=== PATIENT | male | born 1975 | race Hispanic/Latino ===

== ENCOUNTER 2018-03-21 11:21 | Emergency (ER) | payer OTHER ==
[2018-03-21] MEDS ORDERED: ONDANSETRON ODT 4 MG TAB ONE (11:44)
[2018-03-21] MEDS ORDERED: MORPHINE SULFATE 4 MG/1ML SYG ONE (11:44)
== END 2018-03-21 12:13 | disposition home or self-care (01) ==
LOC: EDH 11:21
DX: G89.29 Other chronic pain (principal); M79.671 Pain in right foot; E11.9 Type 2 diabetes mellitus without complications; E78.5 Hyperlipidemia, unspecified; I10 Essential (primary) hypertension; Z89.512 Acquired absence of left leg below knee; Z98.890 Other specified postprocedural states
CPT/HCPCS: 73630; 96372; 99284; J2270

== ENCOUNTER 2020-07-24 06:38 | Emergency (ER) | payer OTHER ==
[~2020-07-24 06:38] MED LIST: LEVO750T46 PO; TAMS-1 PO
[2020-07-24] MEDS ORDERED: ONDANSETRON HCL 4 MG/2 ML VIAL ONE (07:11)
[2020-07-24] MEDS ORDERED: SODIUM CHLORIDE 0.9% 1000ML 1,000 ML IV ONE ×2 (07:12→09:51)
[2020-07-24] MEDS ORDERED: MORPHINE SULFATE 4 MG/1ML SYG ONE (07:12)
[2020-07-24 08:21] LABS: BASOPHILS % (AUTO) 0.8 % (0.0-5.0); EOSINOPHILS % (AUTO) 1.9 % (0.0-8.0); HEMATOCRIT 30.7 % (42-54); LYMPHOCYTES % (AUTO) 18.8 % (21.0-51.0); MEAN CORPUSCULAR HEMOGLOBIN 29.3 pg (27.0-33.0); MEAN CORPUSCULAR HGB CONC 32.2 g/dL (32.0-36.0); MEAN CORPUSCULAR VOLUME 90.8 fL (79-99); MONOCYTES % (AUTO) 4.5 % (3.0-13.0); NEUTROPHILS % (AUTO) 73.8 % (40.0-77.0); PLATELET COUNT (AUTO) 232 K/uL (130-400); RED BLOOD CELL COUNT(AUTO) 3.38 MIL/uL (4.50-6.20); RED CELL DISTRIBUTION WIDTH 12.4 % (11.0-15.5); WHITE BLOOD COUNT (AUTO) 5.2 K/uL (4.8-10.8)
[2020-07-24 08:33] LABS: APPEARANCE,URINE Clear (CLEAR); BILIRUBIN,URINE Negative (NEGATIVE); COLOR,URINE Yellow (YELLOW); GLUCOSE, URINE (UA) >=1000 mg/dL (NEGATIVE); KETONES,URINE Negative (NEGATIVE); LEUKOCYTE ESTERASE ,URINE Negative (NEGATIVE); NITRATE,URINE Negative (NEGATIVE); OCCULT BLOOD,URINE Small (NEGATIVE); PH,URINE 5.5 (5.0-8.0); PROTEIN,URINE 300 mg/dL (NEGATIVE); UROBILINOGEN,URINE 0.2 mg/dL (0.2-1.0)
[2020-07-24 08:37] LABS: ALBUMIN 2.7 g/dL (3.5-5.0); BILIRUBIN,DIRECT 0.1 mg/dL (0.0-0.3); BILIRUBIN,TOTAL 0.2 mg/dL (0.2-1.0); CREATININE 0.8 mg/dL (0.5-1.5); POTASSIUM 3.5 mmol/L (3.5-5.1); TOTAL PROTEIN, SERUM 6.7 g/dL (6.0-8.3)
[2020-07-24 08:47] LABS: BACTERIA,URINE Rare /HPF (None Seen); MUCUS,URINE Rare LPF (None Seen); RBC,URINE 0-1 /HPF (0-1); SQUAMOUS EPITHELIAL CELL,UR Rare /HPF (0-2); WBC,URINE 0-1 /HPF (0-1); YEAST,URINE BUDDING Few /HPF (None Seen)
[2020-07-24 08:53] LABS: INR 0.87 (0.85-1.15); PARTIAL THROMBOPLASTIN TIME 23.5 SEC (26.3-35.5); PROTHROMBIN TIME 9.4 SEC (9.6-11.6)
[2020-07-24] MEDS ORDERED: INSULIN HUMULIN R 100 UNIT/ML 3ML ONE (09:51)
== END 2020-07-24 12:20 | disposition home or self-care (01) ==
LOC: EDH 06:38
DX: K59.00 Constipation, unspecified (principal); E11.65 Type 2 diabetes mellitus with hyperglycemia; E78.5 Hyperlipidemia, unspecified; I10 Essential (primary) hypertension; Z90.49 Acquired absence of other specified parts of digestive tract
CPT/HCPCS: 36415; 74176; 80048; 80076; 81001; 82550; 82948; 83690; 84484; 85025; 85610; 85730; 93005; 96361; 96374; 96375; 99285; J1815; J2270; J2405; J7030 ×2

== ENCOUNTER 2020-07-28 07:36 | Emergency (ER) | payer OTHER ==
[2020-07-28] MEDS ORDERED: ONDANSETRON HCL 4 MG/2 ML VIAL ONE (07:54)
[2020-07-28] MEDS ORDERED: KETOROLAC TROMETHAMINE 30MG/ML ONE (07:55)
[2020-07-28 08:16] LABS: BASOPHILS % (AUTO) 0.8 % (0.0-5.0); EOSINOPHILS % (AUTO) 2.4 % (0.0-8.0); HEMATOCRIT 31.1 % (42-54); LYMPHOCYTES % (AUTO) 19.4 % (21.0-51.0); MEAN CORPUSCULAR HEMOGLOBIN 30.3 pg (27.0-33.0); MEAN CORPUSCULAR HGB CONC 34.1 g/dL (32.0-36.0); MEAN CORPUSCULAR VOLUME 88.9 fL (79-99); MONOCYTES % (AUTO) 3.3 % (3.0-13.0); NEUTROPHILS % (AUTO) 73.9 % (40.0-77.0); PLATELET COUNT (AUTO) 283 K/uL (130-400); RED CELL DISTRIBUTION WIDTH 12.6 % (11.0-15.5); WHITE BLOOD COUNT (AUTO) 5.1 K/uL (4.8-10.8)
[2020-07-28 08:30] LABS: INR 0.86 (0.85-1.15); PARTIAL THROMBOPLASTIN TIME 23.9 SEC (26.3-35.5); PROTHROMBIN TIME 9.3 SEC (9.6-11.6)
[2020-07-28 08:39] LABS: ALBUMIN 2.7 g/dL (3.5-5.0); BILIRUBIN,TOTAL 0.2 mg/dL (0.2-1.0); CREATININE 0.7 mg/dL (0.5-1.5); POTASSIUM 3.9 mmol/L (3.5-5.1); TOTAL PROTEIN, SERUM 6.5 g/dL (6.0-8.3)
[2020-07-28] MEDS ORDERED: INSULIN HUMULIN R 100 UNIT/ML 3ML ONE (09:01)
[2020-07-28] MEDS ORDERED: HALOPERIDOL LACTATE 5 MG/ML VIAL ONE (09:05)
[2020-07-28] MEDS ORDERED: LORAZEPAM 2 MG/ML 1 ML VIAL ONE (09:42)
== END 2020-07-28 13:32 | disposition home or self-care (01) ==
LOC: EDH 07:36
DX: G89.29 Other chronic pain (principal); R10.84 Generalized abdominal pain; E11.65 Type 2 diabetes mellitus with hyperglycemia; I10 Essential (primary) hypertension; E78.5 Hyperlipidemia, unspecified; Z90.49 Acquired absence of other specified parts of digestive tract; Z98.890 Other specified postprocedural states
CPT/HCPCS: 36415; 74176; 80053; 82150; 82948 ×2; 83690; 84484; 85025; 85610; 85730; 93005; 96361 ×2; 96374; 96375; 99285; J1630; J1815; J1885; J2060; J2405

== ENCOUNTER 2020-08-13 23:04 | Inpatient (IN) | payer OTHER ==
[~2020-08-13] VITALS: Ht 142.2 cm; Wt 61.2 kg
[2020-08-13 23:54] LABS: BASOPHILS % (AUTO) 0.6 % (0.0-5.0); EOSINOPHILS % (AUTO) 0.3 % (0.0-8.0); HEMATOCRIT 38.5 % (42-54); LYMPHOCYTES % (AUTO) 16.5 % (21.0-51.0); MEAN CORPUSCULAR HEMOGLOBIN 29.9 pg (27.0-33.0); MEAN CORPUSCULAR HGB CONC 32.5 g/dL (32.0-36.0); MEAN CORPUSCULAR VOLUME 92.1 fL (79-99); MONOCYTES % (AUTO) 2.7 % (3.0-13.0); NEUTROPHILS % (AUTO) 79.6 % (40.0-77.0); PLATELET COUNT (AUTO) 134 K/uL (130-400); RED BLOOD CELL COUNT(AUTO) 4.18 MIL/uL (4.50-6.20); RED CELL DISTRIBUTION WIDTH 13.1 % (11.0-15.5); WHITE BLOOD COUNT (AUTO) 6.3 K/uL (4.8-10.8)
[2020-08-13] MEDS ORDERED: KETOROLAC TROMETHAMINE 30MG/ML ONE (23:57)
[2020-08-13] MEDS ORDERED: ONDANSETRON HCL 4 MG/2 ML VIAL ONE (23:57)
[2020-08-14] MEDS ORDERED: MORPHINE SULFATE 4 MG/1ML SYG ONE (00:46)
[2020-08-14 00:48] LABS: INR 0.89 (0.85-1.15); PARTIAL THROMBOPLASTIN TIME 22.5 SEC (26.3-35.5); PROTHROMBIN TIME 9.7 SEC (9.6-11.6)
[2020-08-14 01:11] LABS: ALANINE AMINOTRANSFERASE 87 U/L (12-78); ALBUMIN 2.5 g/dL (3.5-5.0); ASPARTATE AMINOTRANSFERASE 78 U/L (10-37); BILIRUBIN,DIRECT < 0.1 mg/dL (0.0-0.3); BILIRUBIN,TOTAL 0.2 mg/dL (0.2-1.0); CARBON DIOXIDE 22 mmol/L (21-32); CHLORIDE 94 mmol/L (101-111); CREATINE KINASE, TOTAL 101 U/L (21-232); CREATININE 1.3 mg/dL (0.5-1.5); GLOMERULAR FILTR. RATE CALC 63 mL/min (>60); LIPASE 1584 U/L (114-286); POTASSIUM 4.6 mmol/L (3.5-5.1); SODIUM SERUM 129 mmol/L (136-145); TOTAL PROTEIN, SERUM 6.3 g/dL (6.0-8.3); UREA NITROGEN, BLOOD 13 mg/dL (7-18)
[2020-08-14 01:25] LABS: GLUCOSE,RANDOM 736 mg/dL (70-105)
[2020-08-14] MEDS ORDERED: INSULIN HUMULIN R 100 UNIT/ML 3ML ONE ×2 (02:15→13:09)
[2020-08-14 02:30] LABS: ABG BASE EXCESS 0.2 mmol/L (-2.0-3.0); ABG HCO3 24.9 mmol/L (21.0-28.0); ABG OXYGEN SATURATION 97.4 % (95.0-99.0); ABG PCO2 41 mmHg (35-48)
[2020-08-14 03:55] LABS: APPEARANCE,URINE Clear (CLEAR); BILIRUBIN,URINE Negative (NEGATIVE); COLOR,URINE Yellow (YELLOW); GLUCOSE, URINE (UA) >=1000 mg/dL (NEGATIVE); KETONES,URINE 15 mg/dL (NEGATIVE); LEUKOCYTE ESTERASE ,URINE Negative (NEGATIVE); NITRATE,URINE Negative (NEGATIVE); OCCULT BLOOD,URINE Negative (NEGATIVE); PROTEIN,URINE 300 mg/dL (NEGATIVE); UROBILINOGEN,URINE 0.2 mg/dL (0.2-1.0)
[2020-08-14] MEDS ORDERED: ACETAMINOPHEN 325 MG TAB PO PRN ×2 (04:00)
[2020-08-14] MEDS ORDERED: LACTULOSE 20 GM/30 ML UDCUP PO PRN (04:00)
[2020-08-14] MEDS: LACTATED RINGERS 1000ML 1,000 ML IV SCH ×3 (04:00→21:14)
[2020-08-14 04:05] LABS: BACTERIA,URINE Moderate /HPF (None Seen); RBC,URINE None Seen /HPF (0-1); SQUAMOUS EPITHELIAL CELL,UR Rare /HPF (0-2)
[2020-08-14 04:06] LABS: MUCUS,URINE Few LPF (None Seen)
[2020-08-14] MEDS ORDERED: HYDROMORPHONE HCL 0.5 MG/0.5 ML ML ONE ×2 (04:11→13:22)
[2020-08-14] MEDS ORDERED: INSULIN HUMULIN R 100 UNIT/ML 3ML SQ SCH (06:00)
[2020-08-14] MEDS ORDERED: SODIUM CHLORIDE 0.9% 1000ML 1,000 ML IV ONE (08:01)
[2020-08-14] MEDS ORDERED: FAMOTIDINE/PF 20 MG/2 ML VIAL IV ONE (08:02)
[2020-08-14] MEDS ORDERED: ENOXAPARIN SODIUM 40 MG/0.4 ML SYRINGE SQ ONE (08:02)
[2020-08-14 08:18] LABS: BASOPHILS % (AUTO) 0.6 % (0.0-5.0); EOSINOPHILS % (AUTO) 3.1 % (0.0-8.0); HEMATOCRIT 30.4 % (42-54); LYMPHOCYTES % (AUTO) 24.4 % (21.0-51.0); MEAN CORPUSCULAR HGB CONC 33.2 g/dL (32.0-36.0); MEAN CORPUSCULAR VOLUME 90.2 fL (79-99); MONOCYTES % (AUTO) 4.5 % (3.0-13.0); PLATELET COUNT (AUTO) 213 K/uL (130-400); RED BLOOD CELL COUNT(AUTO) 3.37 MIL/uL (4.50-6.20); RED CELL DISTRIBUTION WIDTH 12.8 % (11.0-15.5); WHITE BLOOD COUNT (AUTO) 5.2 K/uL (4.8-10.8)
[2020-08-14] MEDS ORDERED: GLUCAGON 1MG KIT 1 MG ML IM PRN (08:30)
[2020-08-14] MEDS ORDERED: POTASSIUM CHLORIDE 20 MEQ ERTAB PO PRN (08:30)
[2020-08-14] MEDS ORDERED: POTASSIUM CHLORIDE 10% ELIXIR 20 MEQ/15 ML UDCUP PO PRN (08:30)
[2020-08-14] MEDS ORDERED: POTASSIUM CHLORIDE 20MEQ/100ML 100 ML IV PRN ×2 (08:30)
[2020-08-14] MEDS ORDERED: DEXTROSE 50%-WATER 50 ML DISP.SYRIN IV PRN (08:30)
[2020-08-14 08:32] LABS: POTASSIUM 3.8 mmol/L (3.5-5.1)
[2020-08-14] MEDS: ENOXAPARIN SODIUM 40 MG/0.4 ML SYRINGE SQ SCH (09:00)
[2020-08-14] MEDS: FAMOTIDINE/PF 20 MG/2 ML VIAL IV SCH ×2 (09:00→21:13)
[2020-08-14 09:03] LABS: CHOLESTEROL 116 mg/dL (<200); HDL CHOLESTEROL 42 mg/dL (29-71); LDL DIRECT 51 mg/dL (0-99); TRIGLYCERIDES 127 mg/dL (30-200)
[2020-08-14] MEDS: INSULIN HUMULIN R 100 UNIT/ML 3ML SQ SCH ×3 (11:30→21:00)
[2020-08-14] MEDS ORDERED: ONDANSETRON HCL 4 MG/2 ML VIAL ONE (13:21)
[2020-08-14] MEDS ORDERED: LACTATED RINGERS 1000ML 1,000 ML IV ONE (13:23)
--- NOTE | 2020-08-14 14:10 | NUR ---
call to pt's number in chart, no answer. no other numbers on file WILL FOLLOW WHEN PATIENT GOES OT FLOOR Addendum: 08/14/20 at 1411 by DEREJE DEL CID RN Amended: Links added.
[2020-08-14 17:41] VITALS: BP 118/75
--- NOTE | 2020-08-14 17:43 | NUR ---
ARRIVAL TO FLOOR AAOX3 DENIES CP DENIES SOB DENIES NV NO COMPLAINTS AT THIS TIME, ARRIVED WITH ORDERS. CALL LIGHT WITHIN REACH. HR VIA TELE SR 71.
[2020-08-14 20:08] VITALS: BP 113/69
[2020-08-14] MEDS: ONDANSETRON HCL 4 MG/2 ML VIAL IV PRN (21:13)
[2020-08-14] MEDS: HYDROMORPHONE HCL 0.5 MG/0.5 ML ML IVP PRN (21:15)
[2020-08-15 00:20] VITALS: BP 128/78
[2020-08-15 04:20] VITALS: BP 128/85
[2020-08-15 05:10] LABS: BASOPHILS % (AUTO) 0.4 % (0.0-5.0); EOSINOPHILS % (AUTO) 5.7 % (0.0-8.0); HEMATOCRIT 29.2 % (42-54); LYMPHOCYTES % (AUTO) 27.1 % (21.0-51.0); MEAN CORPUSCULAR HEMOGLOBIN 30.3 pg (27.0-33.0); MEAN CORPUSCULAR HGB CONC 33.9 g/dL (32.0-36.0); MEAN CORPUSCULAR VOLUME 89.3 fL (79-99); MONOCYTES % (AUTO) 3.3 % (3.0-13.0); NEUTROPHILS % (AUTO) 63.3 % (40.0-77.0); PLATELET COUNT (AUTO) 213 K/uL (130-400); RED BLOOD CELL COUNT(AUTO) 3.27 MIL/uL (4.50-6.20); RED CELL DISTRIBUTION WIDTH 12.7 % (11.0-15.5); WHITE BLOOD COUNT (AUTO) 5.1 K/uL (4.8-10.8)
[2020-08-15 05:48] LABS: CREATININE 0.6 mg/dL (0.5-1.5); POTASSIUM 3.3 mmol/L (3.5-5.1)
[2020-08-15] MEDS: HYDROMORPHONE HCL 0.5 MG/0.5 ML ML IVP PRN ×3 (05:49→22:01)
[2020-08-15] MEDS: ONDANSETRON HCL 4 MG/2 ML VIAL IV PRN ×2 (05:49→21:58)
[2020-08-15] MEDS: LACTATED RINGERS 1000ML 1,000 ML IV SCH ×3 (06:18→21:57)
[2020-08-15] MEDS: INSULIN HUMULIN R 100 UNIT/ML 3ML SQ SCH ×4 (06:52→22:17)
--- NOTE | 2020-08-15 06:53 | NUR ---
PATIENT UPDATE MEDICATED FOR PAIN TWICE WITH DILAUDID PRN, ALWAYS WANTS THE ZOFRAN BEFORE THE DILAUDID. STILL PENDING TO BE SEEN BY DR. TALBOT. PENDING CT OF THE ABDOMEN AND PELVIS THIS AM PER DR. TALBOT.
[2020-08-15 08:05] VITALS: BP 145/83
[2020-08-15] MEDS: ENOXAPARIN SODIUM 40 MG/0.4 ML SYRINGE SQ SCH (11:20)
[2020-08-15] MEDS: FAMOTIDINE/PF 20 MG/2 ML VIAL IV SCH ×2 (11:20→21:57)
[2020-08-15 11:55] VITALS: BP 135/84
--- NOTE | 2020-08-15 12:35 | NUR ---
IA NOT DONE. Number on file not answering.
[2020-08-15] MEDS: CEFTRIAXONE SODIUM 1 GM IV SCH (13:00)
[2020-08-15 13:34] LABS: HEMOGLOBIN A1C 15.9 % (4.0-6.0)
[2020-08-15 16:00] VITALS: BP 136/87
--- NOTE | 2020-08-15 18:03 | NUR ---
CM NOTE/IA MET WITH PATIENT IN ROOM. PER PATIENT, SOPHIA INDEPENDENT WITH ADLS, LIVES WITH SISTER AND DAUGHTER, NO DME, NO PROVIDERS, AND FEELS SAFE TO RETURN HOME. SELF PAY, STATES NEED HELP OBTAINING WHEELCHAIR. CM TO FOLLOW UP FOR NEEDS. Addendum: 08/15/20 at 1804 by TOYIN CASAREZ RN CM Amended: Links added.
--- NOTE | 2020-08-15 19:20 | NUR ---
Re: Renal sonogram Pt back from Renal Sonogram reported it was not done as current 2 IV access not working, per Mart GARCIA bedside nurse stated to re-schedule it for tomorrow. Addendum: 08/15/20 at 2314 by EDEL PAULINO RN RN Re: Renal scan
--- NOTE | 2020-08-15 19:50 | NUR ---
Re: IV Access Old IV access discontinued aseptically x2 with catheter tip intact. Sites within normal, no s/s of infection. Attempted to initiate new access x 1 unsuccessful. Pt stated that previous shift had attempted x 4. Pt noted a hard stick, requested Cat RN to assist with this issue.
[2020-08-15 20:00] VITALS: BP 145/92
--- NOTE | 2020-08-15 21:50 | NUR ---
Re: IV Access Cat RN initiated x 1 attempt IV access, noted with good blood return, LR at 125cc/hr re-started, & pt right away requested to have a Dilriannaid & Carolynan as claiming severe abdominal pain with feeling nauseated, to be medicated.
--- NOTE | 2020-08-15 22:00 | NUR ---
Re: Diarrhea Pt verbalizes having diarrhea even before he was admitted & claimed for today had 10 episode of watery to mucous consistency stool. Phoned lab as noted with order for stool collection, stated specimen pending collection. Pt then instructed if he can call us so we can place him on a bedpan & be able to collect stool specimen, pt agreed.
[2020-08-16] VITALS: BP 103/59
[2020-08-16 04:00] VITALS: BP 112/68
[2020-08-16] MEDS: HYDROMORPHONE HCL 0.5 MG/0.5 ML ML IVP PRN ×3 (04:11→20:51)
[2020-08-16] MEDS: ONDANSETRON HCL 4 MG/2 ML VIAL IV PRN ×3 (04:14→20:49)
[2020-08-16] MEDS: LACTATED RINGERS 1000ML 1,000 ML IV SCH ×2 (05:46→20:49)
[2020-08-16 06:22] LABS: BASOPHILS % (AUTO) 0.7 % (0.0-5.0); EOSINOPHILS % (AUTO) 5.3 % (0.0-8.0); LYMPHOCYTES % (AUTO) 38.1 % (21.0-51.0); MEAN CORPUSCULAR HEMOGLOBIN 29.9 pg (27.0-33.0); MEAN CORPUSCULAR HGB CONC 33.4 g/dL (32.0-36.0); MEAN CORPUSCULAR VOLUME 89.5 fL (79-99); MONOCYTES % (AUTO) 4.4 % (3.0-13.0); NEUTROPHILS % (AUTO) 51.3 % (40.0-77.0); PLATELET COUNT (AUTO) 215 K/uL (130-400); RED BLOOD CELL COUNT(AUTO) 3.24 MIL/uL (4.50-6.20); RED CELL DISTRIBUTION WIDTH 12.5 % (11.0-15.5); WHITE BLOOD COUNT (AUTO) 4.3 K/uL (4.8-10.8)
[2020-08-16 06:39] LABS: CREATININE 0.6 mg/dL (0.5-1.5); POTASSIUM 3.1 mmol/L (3.5-5.1)
[2020-08-16] MEDS: INSULIN HUMULIN R 100 UNIT/ML 3ML SQ SCH ×4 (06:59→20:53)
[2020-08-16 08:05] VITALS: BP 117/86
[2020-08-16] MEDS: CEFTRIAXONE SODIUM 1 GM IV SCH (09:20)
[2020-08-16] MEDS: FAMOTIDINE/PF 20 MG/2 ML VIAL IV SCH ×2 (09:20→20:49)
[2020-08-16] MEDS: ENOXAPARIN SODIUM 40 MG/0.4 ML SYRINGE SQ SCH (09:20)
[2020-08-16 12:00] VITALS: BP 120/74
--- NOTE | 2020-08-16 13:15 | NUR ---
REFUSING MEALS PT STATED HE WOULD RATHER NOT EAT IN ORDER TO RECEIVE DILAUDID FOR ABDOMINAL PAIN 07/26.
[2020-08-16] MEDS ORDERED: LOPERAMIDE 1 MG/7.5 ML UDCUP PO PRN (15:00)
[2020-08-16] MEDS ORDERED: LOPERAMIDE HCL 2 MG CAP PO ONE (15:29)
[2020-08-16] MEDS ORDERED: LOPERAMIDE HCL 2 MG CAP PO PRN (15:30)
--- NOTE | 2020-08-16 15:35 | NUR ---
REFUSING DILAUDID PT STATED THAT HE IS HUNGRY AND STATED HE WANTED TO STOP DILAUDID IV SO THAT HE CAN EAT. INFORMED PT THAT ONCE DILAUDID WAS STOPPED THAT THE PRIMARY MD WOULD HAVE TO RE-ENTER ORDER. PT STATED THAT WAS FINE.
[2020-08-16 16:08] VITALS: BP 124/80
--- NOTE | 2020-08-16 19:40 | NUR ---
PM Assessment PT is back from [facility] for Renal Scan, reported by EMT that per [place] they were told to tell me that no official reading yet, it will be fax to us once been read. Leighann Scan CD in chart. Routine assessment done, pt right away claiming feeling so hungry, dinner provider post blood sugar being monitored. Pt currently denies discomfort.
[2020-08-16 20:00] VITALS: BP 139/93
[2020-08-17 00:11] VITALS: BP 114/76
[2020-08-17] MEDS: ONDANSETRON HCL 4 MG/2 ML VIAL IV PRN ×2 (03:03→08:06)
[2020-08-17] MEDS: HYDROMORPHONE HCL 0.5 MG/0.5 ML ML IVP PRN (03:09)
[2020-08-17 04:27] VITALS: BP 121/86
[2020-08-17] MEDS: LACTATED RINGERS 1000ML 1,000 ML IV SCH (04:28)
[2020-08-17 05:46] LABS: HEMATOCRIT 28.4 % (42-54); MEAN CORPUSCULAR HGB CONC 33.8 g/dL (32.0-36.0); MEAN CORPUSCULAR VOLUME 88.8 fL (79-99); RED BLOOD CELL COUNT(AUTO) 3.2 MIL/uL (4.50-6.20); RED CELL DISTRIBUTION WIDTH 12.4 % (11.0-15.5); WHITE BLOOD COUNT (AUTO) 4.4 K/uL (4.8-10.8)
[2020-08-17 06:05] LABS: ALBUMIN 1.6 g/dL (3.5-5.0); BILIRUBIN,TOTAL 0.1 mg/dL (0.2-1.0); CREATININE 0.6 mg/dL (0.5-1.5); POTASSIUM 3.3 mmol/L (3.5-5.1); TOTAL PROTEIN, SERUM 4.3 g/dL (6.0-8.3)
[2020-08-17] MEDS: INSULIN HUMULIN R 100 UNIT/ML 3ML SQ SCH (06:32)
--- NOTE | 2020-08-17 07:20 | NUR ---
ASSESSMENT ENCOUNTERED PT IN SEMI NEGRO'S POSITION, A&OX3, DRINKING COFFEE AND AWAITING BREAKFAST, DENIES PAIN, SOB, NAUSEA. PT DOES NOT APPEAR TO BE IN ANY DISTRESS NOR ANY NEURO DEFICITS PRESENT. CALL LIGHT WITHIN REACH.
--- NOTE | 2020-08-17 07:30 | NUR ---
EMESIS PT C/O VOMITING AFTER 2ND TRAY OF BREAKFAST AND ASKING FOR DILAUDID. PT INFORMED THAT DILAUDID WAS DISCONTINUE PER HIS REQUEST YESTERDAY BECAUSE HE WANTED TO EAT. PT DISAGREED AND REQUESTING DILAUDID. WILL NOTIFY PMD.
[2020-08-17 08:00] VITALS: BP 130/89
[2020-08-17] MEDS: FAMOTIDINE/PF 20 MG/2 ML VIAL IV SCH (08:52)
[2020-08-17] MEDS: CEFTRIAXONE SODIUM 1 GM IV SCH (08:52)
[2020-08-17] MEDS: ENOXAPARIN SODIUM 40 MG/0.4 ML SYRINGE SQ SCH (08:52)
--- NOTE | 2020-08-17 08:52 | NUR ---
REFUSED MEDS INFORMED PT WAITING FOR RESPONSE OF RESUMING IV DILAUDID, PT REFUSES AM MEDS OF PEPCID IV, ROCEPHIN AND LOVENOX. PT A&OX3 AND UNDERSTANDS RISKS OF REFUSING MEDS THAT INCLUDE WORSEING ABDOMINAL PAIN, RISK OF BLOOD CLOT FORMATION AND RISK OF ABDOMINAL INFECTION. PT UNDERSTANDS AND ACCEPTS RISKS.
--- NOTE | 2020-08-17 11:10 | NUR ---
DR. DAHIANA TALBOT IS AWARE PATIENT SIGNED AMA. PER DR TALBOT WOULD PREFER THAT PATIENT WOULD NOT LEAVE AMA AND IS AWARE. NO NEW ORDERS
--- NOTE | 2020-08-17 11:15 | NUR ---
AMA PT AAOX4 LEFT AMA, REFUSED TX AND SIGNED FORM. ALSO, PT AWARE OF RISK REMOVING HANDLEY CATH. NO COMPLICATIONS UPON PT LEAVING.
--- NOTE | 2020-08-17 11:24 | NUR ---
YARA SPOKE TO JAMES GUZMAN PLASTIC BOAT PATCHER ABOUT PATIENT WANTING TO LEAVEAMA STATES, THAT DR. ADAMS IS AWARE. HE HAS BEEN WANTING TO LEAVE SINCE YESTERDAY AND CHANGED HIS MIND. THIS MORINING HE VOICED THAT HE WANTS TO LEAVE AM AGAIN AND FORM IS SIGNED.
--- NOTE | 2020-08-17 11:29 | NUR ---
EMMANUELLE D/C 8 FR AND IV D/C FORM SIGNED TO LEAVE AMA
== END 2020-08-17 11:45 | disposition left against medical advice (07) | DRG 439 ==
LOC: EDH 23:04 → EDHIP 23:05 → 4CH 08-14 17:39 → 3CH 08-17 09:30
PROVIDERS: ADMIT Internal Medicine; ATTEND Internal Medicine
DX: K85.90 Acute pancreatitis without necrosis or infection, unspecified (principal); E87.1 Hypo-osmolality and hyponatremia; N13.6 Pyonephrosis; E11.51 Type 2 diabetes mellitus with diabetic peripheral angiopathy without gangrene; E78.5 Hyperlipidemia, unspecified; I10 Essential (primary) hypertension; K59.00 Constipation, unspecified; M47.815 Spondylosis without myelopathy or radiculopathy, thoracolumbar region; G89.29 Other chronic pain; Z53.29 Procedure and treatment not carried out because of patient's decision for other reasons; Z89.511 Acquired absence of right leg below knee; Z89.512 Acquired absence of left leg below knee; Z91.19 Patient's noncompliance with other medical treatment and regimen; Z82.3 Family history of stroke; Z82.49 Family history of ischemic heart disease and other diseases of the circulatory system; Z83.3 Family history of diabetes mellitus; Z90.49 Acquired absence of other specified parts of digestive tract
CPT/HCPCS: 36415; 36600; 71045; 74176; 80048; 80053; 80061; 80076; 81001; 82150; 82550; 82803; 82948; 83036; 83630; 83690; 84484; 85025; 85027; 85610; 85730; 87046; 87077; 87088; 87186; 87324; 87338; 93005; 99291; G0378; J0696; J1170; J1650; J1815; J1885; J2270; J2405; J3490; J7030; J7120

== ENCOUNTER 2020-08-18 20:45 | Inpatient (IN) | payer OTHER ==
[~2020-08-18] VITALS: Ht 147.3 cm; Wt 64.9 kg
[2020-08-18] MEDS ORDERED: MORPHINE SULFATE 4 MG/1ML SYG ONE (20:59)
[2020-08-18] MEDS ORDERED: INSULIN HUMULIN R 100 UNIT/ML 3ML ONE (21:00)
[2020-08-18 21:11] LABS: BASOPHILS % (AUTO) 0.5 % (0.0-5.0); EOSINOPHILS % (AUTO) 2.3 % (0.0-8.0); LYMPHOCYTES % (AUTO) 18.3 % (21.0-51.0); MEAN CORPUSCULAR HEMOGLOBIN 29.6 pg (27.0-33.0); MEAN CORPUSCULAR HGB CONC 30.3 g/dL (32.0-36.0); MEAN CORPUSCULAR VOLUME 97.6 fL (79-99); NEUTROPHILS % (AUTO) 75.9 % (40.0-77.0); PLATELET COUNT (AUTO) 179 K/uL (130-400); RED BLOOD CELL COUNT(AUTO) 3.38 MIL/uL (4.50-6.20); RED CELL DISTRIBUTION WIDTH 12.9 % (11.0-15.5)
[2020-08-18 21:25] LABS: INR 0.82 (0.85-1.15); PARTIAL THROMBOPLASTIN TIME 22.3 SEC (26.3-35.5); PROTHROMBIN TIME 8.9 SEC (9.6-11.6)
[2020-08-18 21:27] LABS: ALBUMIN 2.3 g/dL (3.5-5.0); BILIRUBIN,TOTAL 0.1 mg/dL (0.2-1.0); CREATININE 1.3 mg/dL (0.5-1.5); POTASSIUM 4.6 mmol/L (3.5-5.1); TOTAL PROTEIN, SERUM 5.7 g/dL (6.0-8.3)
[2020-08-18 21:45] LABS: APPEARANCE,URINE Clear (CLEAR); BILIRUBIN,URINE Negative (NEGATIVE); COLOR,URINE Yellow (YELLOW); GLUCOSE, URINE (UA) >=1000 mg/dL (NEGATIVE); KETONES,URINE Negative (NEGATIVE); LEUKOCYTE ESTERASE ,URINE Negative (NEGATIVE); NITRATE,URINE Negative (NEGATIVE); OCCULT BLOOD,URINE Negative (NEGATIVE); PH,URINE 5.5 (5.0-8.0); PROTEIN,URINE POS 2+ mg/dL (NEGATIVE); UROBILINOGEN,URINE 0.2 mg/dL (0.2-1.0)
[2020-08-18 21:52] LABS: BACTERIA,URINE Rare /HPF (None Seen); RBC,URINE None Seen /HPF (0-1); SQUAMOUS EPITHELIAL CELL,UR 0-2 /HPF (0-2); WBC,URINE 0-1 /HPF (0-1)
[2020-08-18 21:53] LABS: ABG BASE EXCESS 0.2 mmol/L (-2.0-3.0); ABG HCO3 24.9 mmol/L (21.0-28.0); ABG OXYGEN SATURATION 95.9 % (95.0-99.0); ABG PCO2 41 mmHg (35-48)
[2020-08-18] MEDS ORDERED: FAMOTIDINE/PF 20 MG/2 ML VIAL IV ONE (22:15)
[2020-08-18] MEDS ORDERED: LACTULOSE 20 GM/30 ML UDCUP PO PRN (22:45)
[2020-08-18] MEDS ORDERED: LORAZEPAM 2 MG/ML 1 ML VIAL ONE (22:45)
[2020-08-18] MEDS ORDERED: ACETAMINOPHEN 325 MG TAB PO PRN ×2 (22:45)
[2020-08-18] MEDS ORDERED: HYDRALAZINE HCL 20 MG/ML VIAL IV PRN (22:45)
[2020-08-18] MEDS: SODIUM CHLORIDE 0.9% 1000ML 1,000 ML IV SCH (22:45)
[2020-08-18] MEDS ORDERED: HYDROXYZINE HCL 25 MG TABLET ONE (22:59)
[2020-08-18] MEDS ORDERED: HYDROMORPHONE HCL 0.5 MG/0.5 ML ML ONE (23:29)
[2020-08-19] VITALS (12 sets, daily range): BP systolic 113–148; BP diastolic 59–90
[2020-08-19] MEDS ORDERED: INSULIN HUMULIN R 100 UNIT/ML 3ML SQ SCH
[2020-08-19] MEDS ORDERED: INSULIN HUMULIN R 100 UNIT/ML 3ML ONE (00:51)
[2020-08-19] MEDS ORDERED: INSULIN REGULAR, HUMAN 3ML 100 UNIT in SODIUM CHLORIDE 0.9% 99 ML IV PRN ×2 (01:00)
[2020-08-19] MEDS ORDERED: ONDANSETRON HCL 4 MG/2 ML VIAL ONE (04:41)
[2020-08-19] MEDS ORDERED: HYDROMORPHONE HCL 0.5 MG/0.5 ML ML ONE (05:07)
[2020-08-19] MEDS: SODIUM CHLORIDE 0.9% 1000ML 1,000 ML IV SCH ×2 (05:25→11:21)
[2020-08-19 05:38] LABS: BASOPHILS % (AUTO) 0.8 % (0.0-5.0); EOSINOPHILS % (AUTO) 4.9 % (0.0-8.0); HEMATOCRIT 33.6 % (42-54); LYMPHOCYTES % (AUTO) 35.8 % (21.0-51.0); MEAN CORPUSCULAR HEMOGLOBIN 29.9 pg (27.0-33.0); MEAN CORPUSCULAR HGB CONC 32.4 g/dL (32.0-36.0); MEAN CORPUSCULAR VOLUME 92.1 fL (79-99); MONOCYTES % (AUTO) 4.1 % (3.0-13.0); NEUTROPHILS % (AUTO) 54.2 % (40.0-77.0); PLATELET COUNT (AUTO) 201 K/uL (130-400); RED BLOOD CELL COUNT(AUTO) 3.65 MIL/uL (4.50-6.20); RED CELL DISTRIBUTION WIDTH 12.4 % (11.0-15.5); WHITE BLOOD COUNT (AUTO) 4.9 K/uL (4.8-10.8)
[2020-08-19 06:10] LABS: CREATININE 0.9 mg/dL (0.5-1.5); POTASSIUM 3.6 mmol/L (3.5-5.1)
[2020-08-19] MEDS: ONDANSETRON HCL 4 MG/2 ML VIAL IV PRN ×3 (09:35→21:05)
[2020-08-19] MEDS: FAMOTIDINE/PF 20 MG/2 ML VIAL IV SCH ×2 (09:35→19:27)
[2020-08-19] MEDS: HYDROMORPHONE 1 MG/1 ML AMP IV PRN ×3 (09:35→21:06)
--- NOTE | 2020-08-19 10:19 | NUR ---
CM NOTE/IA REVIEWED PAST MEDICAL ADMISSION, PATIENT WAS DISCHARGED FROM HOSPITAL ON 08/17. PATIENTS PRIOR CM NOTE READS:" MET WITH PATIENT IN ROOM. PER PATIENT, SOPHIA INDEPENDENT WITH ADLS, LIVES WITH SISTER AND DAUGHTER, NO DME, NO PROVIDERS, AND FEELS SAFE TO RETURN HOME. SELF PAY, STATES NEED HELP OBTAINING WHEELCHAIR. CM TO FOLLOW UP FOR NEEDS." THIS WILL BE REPORTED TO CASIE MASCORRO, CURRENTLY ASSIGNED TO PATIENT.
[2020-08-19] MEDS: INSULIN HUMULIN R 100 UNIT/ML 3ML SQ SCH (20:07)
[2020-08-20] MEDS: SODIUM CHLORIDE 0.9% 1000ML 1,000 ML IV SCH (02:44)
[2020-08-20] MEDS: ONDANSETRON HCL 4 MG/2 ML VIAL IV PRN ×3 (03:06→20:40)
[2020-08-20] MEDS: HYDROMORPHONE 1 MG/1 ML AMP IV PRN ×2 (03:06→09:10)
[2020-08-20 04:22] VITALS: BP 126/78
[2020-08-20] MEDS: INSULIN HUMULIN R 100 UNIT/ML 3ML SQ SCH ×4 (05:42→21:11)
[2020-08-20] MEDS ORDERED: POTASSIUM CHLORIDE 20 MEQ ERTAB PO ONE (06:22)
[2020-08-20] MEDS ORDERED: POTASSIUM CHLORIDE 10% ELIXIR 20 MEQ/15 ML UDCUP PO PRN (06:30)
[2020-08-20] MEDS ORDERED: POTASSIUM CHLORIDE 20MEQ/100ML 100 ML IV PRN (06:30)
[2020-08-20] MEDS ORDERED: LIDOCAINE HCL-MPF 1% 2ML VIAL IV PRN (06:30)
[2020-08-20 07:32] LABS: BASOPHILS % (AUTO) 0.8 % (0.0-5.0); EOSINOPHILS % (AUTO) 5.7 % (0.0-8.0); HEMATOCRIT 33.2 % (42-54); LYMPHOCYTES % (AUTO) 33.1 % (21.0-51.0); MEAN CORPUSCULAR HEMOGLOBIN 30.4 pg (27.0-33.0); MEAN CORPUSCULAR VOLUME 89.2 fL (79-99); MONOCYTES % (AUTO) 2.7 % (3.0-13.0); NEUTROPHILS % (AUTO) 57.5 % (40.0-77.0); PLATELET COUNT (AUTO) 232 K/uL (130-400); RED BLOOD CELL COUNT(AUTO) 3.72 MIL/uL (4.50-6.20); RED CELL DISTRIBUTION WIDTH 12.5 % (11.0-15.5); WHITE BLOOD COUNT (AUTO) 5.3 K/uL (4.8-10.8)
[2020-08-20 07:43] LABS: HEMOGLOBIN A1C 14.5 % (4.0-6.0)
[2020-08-20 07:57] LABS: CREATININE 0.6 mg/dL (0.5-1.5); POTASSIUM 3.6 mmol/L (3.5-5.1); THYROID STIMULATING HORMONE 4.33 uIU/mL (0.36-3.74)
[2020-08-20 08:18] VITALS: BP 137/85
[2020-08-20] MEDS: FAMOTIDINE/PF 20 MG/2 ML VIAL IV SCH ×2 (09:10→20:39)
[2020-08-20 09:49] LABS: ALBUMIN 1.8 g/dL (3.5-5.0); BILIRUBIN,DIRECT 0.1 mg/dL (0.0-0.3); BILIRUBIN,TOTAL 0.2 mg/dL (0.2-1.0); TOTAL PROTEIN, SERUM 4.8 g/dL (6.0-8.3)
[2020-08-20] MEDS: LACTATED RINGERS 1000ML 1,000 ML IV SCH ×3 (10:46→20:39)
[2020-08-20 11:14] VITALS: BP 133/95
[2020-08-20] MEDS: HYDROMORPHONE HCL 0.5 MG/0.5 ML ML IV PRN ×2 (14:45→21:06)
[2020-08-20 16:12] VITALS: BP 145/95
[2020-08-20] MEDS ORDERED: PHARMACY COMMUNICATION MISC SCH (17:15)
[2020-08-20 20:09] VITALS: BP 129/72
[2020-08-20] MEDS: POTASSIUM CHLORIDE 20 MEQ ERTAB PO PRN (20:40)
[2020-08-20] MEDS ORDERED: INSULIN GLARGINE 100 UNITS/ML 10 ML VIAL SQ SCH (21:00)
[2020-08-20 23:45] VITALS: BP 143/64
[2020-08-21] VITALS (7 sets, daily range): BP systolic 123–150; BP diastolic 52–96
[2020-08-21] MEDS: ONDANSETRON HCL 4 MG/2 ML VIAL IV PRN ×3 (03:16→20:10)
[2020-08-21] MEDS: LACTATED RINGERS 1000ML 1,000 ML IV SCH ×3 (03:17→20:40)
[2020-08-21] MEDS: HYDROMORPHONE HCL 0.5 MG/0.5 ML ML IV PRN ×4 (03:17→20:12)
[2020-08-21 04:20] LABS: BASOPHILS % (AUTO) 0.5 % (0.0-5.0); EOSINOPHILS % (AUTO) 4.2 % (0.0-8.0); LYMPHOCYTES % (AUTO) 32.9 % (21.0-51.0); MEAN CORPUSCULAR HEMOGLOBIN 29.4 pg (27.0-33.0); MEAN CORPUSCULAR HGB CONC 33.3 g/dL (32.0-36.0); MEAN CORPUSCULAR VOLUME 88.2 fL (79-99); MONOCYTES % (AUTO) 3.7 % (3.0-13.0); NEUTROPHILS % (AUTO) 58.5 % (40.0-77.0); PLATELET COUNT (AUTO) 228 K/uL (130-400); RED CELL DISTRIBUTION WIDTH 12.2 % (11.0-15.5); WHITE BLOOD COUNT (AUTO) 4.3 K/uL (4.8-10.8)
[2020-08-21 04:32] LABS: CREATININE 0.5 mg/dL (0.5-1.5); POTASSIUM 3.1 mmol/L (3.5-5.1)
[2020-08-21] MEDS: INSULIN HUMULIN R 100 UNIT/ML 3ML SQ SCH ×4 (05:53→20:13)
[2020-08-21] MEDS ORDERED: POTASSIUM CHLORIDE 20 MEQ ERTAB PO SCH (07:30)
[2020-08-21 07:52] LABS: ALBUMIN 1.7 g/dL (3.5-5.0); BILIRUBIN,DIRECT 0.1 mg/dL (0.0-0.3); BILIRUBIN,TOTAL 0.2 mg/dL (0.2-1.0); TOTAL PROTEIN, SERUM 4.5 g/dL (6.0-8.3)
[2020-08-21] MEDS: FAMOTIDINE/PF 20 MG/2 ML VIAL IV SCH ×2 (09:42→20:10)
[2020-08-21] MEDS: LIPASE/PROTEASE/AMYLASE 5000/17000/24000 PO SCH ×3 (09:42→17:13)
[2020-08-21 12:13] LABS: CREATININE 0.6 mg/dL (0.5-1.5); POTASSIUM 3.4 mmol/L (3.5-5.1)
[2020-08-21] MEDS ORDERED: BALSAM PERU/CASTOR OIL 60 GM TUBE TP PRN (16:15)
--- NOTE | 2020-08-21 20:00 | NUR ---
MEDS CALLED PHARMACY FOR DILAUDID DOSE NONE AVAILABLE ON THE [facility] ON THE FLOOR. DUE MEDS ADMINISTERED, TOLERATED WELL. DILAUDID IV GIVEN FOR PAIN. KEPT COMFORTABLE IN BED. WILL MONITOR PT. CALL LIGHT WITHIN REACH.
[2020-08-21] MEDS: POTASSIUM CHLORIDE 20 MEQ ERTAB PO PRN (20:10)
[2020-08-21] MEDS: INSULIN GLARGINE 100 UNITS/ML 10 ML VIAL SQ SCH (20:14)
[2020-08-22] VITALS (7 sets, daily range): BP systolic 114–158; BP diastolic 62–97
[2020-08-22] MEDS: HYDROMORPHONE HCL 0.5 MG/0.5 ML ML IV PRN ×6 (00:49→21:33)
[2020-08-22] MEDS: LACTATED RINGERS 1000ML 1,000 ML IV SCH ×4 (00:58→17:55)
--- NOTE | 2020-08-22 02:00 | NUR ---
ROUNDS PT RESTING WELL, FAIRLY ASLEEP. NO DISTRESS NOTED. KEPT UNDISTURBED FOR NOW. WILL CONTINUE TO MONITOR.
[2020-08-22] MEDS ORDERED: LACTATED RINGERS 1000ML 1,000 ML IV ONE (03:20)
[2020-08-22 04:14] LABS: BASOPHILS % (AUTO) 0.7 % (0.0-5.0); EOSINOPHILS % (AUTO) 3.4 % (0.0-8.0); HEMATOCRIT 32.6 % (42-54); MEAN CORPUSCULAR HEMOGLOBIN 30.1 pg (27.0-33.0); MEAN CORPUSCULAR VOLUME 88.3 fL (79-99); MONOCYTES % (AUTO) 3.4 % (3.0-13.0); NEUTROPHILS % (AUTO) 48.3 % (40.0-77.0); RED BLOOD CELL COUNT(AUTO) 3.69 MIL/uL (4.50-6.20); RED CELL DISTRIBUTION WIDTH 12.3 % (11.0-15.5); WHITE BLOOD COUNT (AUTO) 4.4 K/uL (4.8-10.8)
[2020-08-22 04:25] LABS: CREATININE 0.6 mg/dL (0.5-1.5)
[2020-08-22 04:47] LABS: PLATELET COUNT (AUTO) 216 K/uL (130-400)
[2020-08-22] MEDS: ONDANSETRON HCL 4 MG/2 ML VIAL IV PRN ×3 (05:08→17:13)
--- NOTE | 2020-08-22 05:08 | NUR ---
PAIN PT CALLS FOR PAIN MEDICATION, CLAIMS OF ABDOMINAL PAINS AND NAUSEA. MEDICATED WITH DILAUDID AND ZOFRAN IV. KEPT COMFORTABLE IN BED. WILL RE-ASSESS PT.
[2020-08-22] MEDS: INSULIN HUMULIN R 100 UNIT/ML 3ML SQ SCH ×4 (06:39→20:43)
--- NOTE | 2020-08-22 07:32 | NUR ---
DR. BELL IN TO SEE PT. NO NEW ORDERS.
[2020-08-22] MEDS: LIPASE/PROTEASE/AMYLASE 5000/17000/24000 PO SCH ×3 (09:20→17:14)
[2020-08-22] MEDS: FAMOTIDINE/PF 20 MG/2 ML VIAL IV SCH ×2 (09:20→20:44)
--- NOTE | 2020-08-22 18:25 | NUR ---
IN TO SEE PT. LOOKED AT SCAN AND ASKED THAT WE PULL UP A SCAN DONE IN OCT. THEN WALKED AWAY AND HASN'T RETURNED.DID MENTION TO LEAVE CURRENT HANDLEY IN,
[2020-08-22] MEDS: INSULIN GLARGINE 100 UNITS/ML 10 ML VIAL SQ SCH (20:44)
[2020-08-23] VITALS (7 sets, daily range): BP systolic 127–146; BP diastolic 75–92
[2020-08-23] MEDS: ONDANSETRON HCL 4 MG/2 ML VIAL IV PRN ×3 (01:34→18:22)
[2020-08-23] MEDS: HYDROMORPHONE HCL 0.5 MG/0.5 ML ML IV PRN ×6 (01:38→22:35)
[2020-08-23] MEDS: LACTATED RINGERS 1000ML 1,000 ML IV SCH ×2 (05:46→21:25)
[2020-08-23] MEDS: INSULIN HUMULIN R 100 UNIT/ML 3ML SQ SCH ×6 (05:53→21:07)
[2020-08-23 06:18] LABS: EOSINOPHILS % (AUTO) 5.5 % (0.0-8.0); HEMATOCRIT 29.2 % (42-54); LYMPHOCYTES % (AUTO) 44.3 % (21.0-51.0); MEAN CORPUSCULAR HEMOGLOBIN 29.4 pg (27.0-33.0); MEAN CORPUSCULAR HGB CONC 33.6 g/dL (32.0-36.0); MEAN CORPUSCULAR VOLUME 87.7 fL (79-99); MONOCYTES % (AUTO) 4.9 % (3.0-13.0); PLATELET COUNT (AUTO) 232 K/uL (130-400); RED BLOOD CELL COUNT(AUTO) 3.33 MIL/uL (4.50-6.20); RED CELL DISTRIBUTION WIDTH 12.5 % (11.0-15.5); WHITE BLOOD COUNT (AUTO) 3.1 K/uL (4.8-10.8)
[2020-08-23 06:38] LABS: CREATININE 0.6 mg/dL (0.5-1.5); POTASSIUM 3.9 mmol/L (3.5-5.1)
[2020-08-23] MEDS: FAMOTIDINE/PF 20 MG/2 ML VIAL IV SCH ×2 (10:10→21:07)
[2020-08-23] MEDS: LIPASE/PROTEASE/AMYLASE 5000/17000/24000 PO SCH ×3 (10:16→16:39)
--- NOTE | 2020-08-23 12:00 | NUR ---
EATS WELL AND WILL ASK FOR MORE FOOD, STATES HE IS NOT GIVEN ENOUGH.
--- NOTE | 2020-08-23 18:00 | NUR ---
REQUESTED PAIN AND NAUSEA MED Q 4 HRS, PLAN PER DR. CARDONA IS TO GIVE PO PAIN MEDS TOMORROW HOPEFULLY DISCHARGE TUESDAY.
[2020-08-23] MEDS: INSULIN GLARGINE 100 UNITS/ML 10 ML VIAL SQ SCH (21:07)
[2020-08-24] MEDS: ONDANSETRON HCL 4 MG/2 ML VIAL IV PRN ×2 (02:32→10:40)
[2020-08-24] MEDS: HYDROMORPHONE HCL 0.5 MG/0.5 ML ML IV PRN ×3 (02:32→10:40)
[2020-08-24 03:49] VITALS: BP 156/93
[2020-08-24] MEDS: LACTATED RINGERS 1000ML 1,000 ML IV SCH ×3 (04:26→21:30)
[2020-08-24] MEDS: INSULIN HUMULIN R 100 UNIT/ML 3ML SQ SCH ×7 (05:50→20:30)
[2020-08-24 06:21] LABS: CREATININE 0.6 mg/dL (0.5-1.5); MAGNESIUM 1.5 mg/dL (1.80-2.40); POTASSIUM 3.8 mmol/L (3.5-5.1)
[2020-08-24] MEDS ORDERED: MAGNESIUM 2GM PREMIX 50ML 50 ML IV ONE (06:39)
[2020-08-24] MEDS ORDERED: MAGNESIUM 2GM PREMIX 50ML 50 ML IV PRN ×2 (06:45→07:45)
[2020-08-24 08:00] VITALS: BP 162/91
[2020-08-24] MEDS: FAMOTIDINE/PF 20 MG/2 ML VIAL IV SCH ×2 (08:54→20:30)
[2020-08-24] MEDS: LIPASE/PROTEASE/AMYLASE 5000/17000/24000 PO SCH ×3 (08:54→17:00)
[2020-08-24] MEDS ORDERED: ONDANSETRON HCL 4 MG/2 ML VIAL IVP PRN (09:30)
--- NOTE | 2020-08-24 10:40 | NUR ---
ZOFRAN AND DILAUDID GIVEN AT 1000, SCANNED AT 1040. WILL GIVE PO PAIN MED. NEXT C/O OF PAIN.
[2020-08-24] MEDS ORDERED: HYDROCODONE/ACETAMINOPHEN 5/325 MG TAB PO PRN (10:45)
[2020-08-24 12:20] VITALS: BP 145/87
[2020-08-24 12:24] LABS: ALBUMIN 1.8 g/dL (3.5-5.0); BILIRUBIN,DIRECT 0.1 mg/dL (0.0-0.3); BILIRUBIN,TOTAL 0.1 mg/dL (0.2-1.0); TOTAL PROTEIN, SERUM 4.5 g/dL (6.0-8.3)
[2020-08-24] MEDS ORDERED: DIPHENHYDRAMINE HCL 25 MG CAPSULE ONE (14:25)
[2020-08-24] MEDS ORDERED: DIPHENHYDRAMINE HCL 25 MG CAPSULE PO SCH (15:30)
[2020-08-24 16:47] VITALS: BP 161/97
[2020-08-24 20:00] VITALS: BP 136/80
[2020-08-24] MEDS: INSULIN GLARGINE 100 UNITS/ML 10 ML VIAL SQ SCH (20:29)
[2020-08-25 00:14] VITALS: BP 121/73
[2020-08-25] MEDS: ACETAMINOPHEN-CODEINE 300/30MG TAB PO PRN ×3 (00:32→21:39)
[2020-08-25 03:38] VITALS: BP 148/76
[2020-08-25 05:55] LABS: BASOPHILS % (AUTO) 0.8 % (0.0-5.0); EOSINOPHILS % (AUTO) 8.5 % (0.0-8.0); HEMATOCRIT 26.9 % (42-54); LYMPHOCYTES % (AUTO) 39.8 % (21.0-51.0); MEAN CORPUSCULAR HEMOGLOBIN 29.3 pg (27.0-33.0); MEAN CORPUSCULAR HGB CONC 32.7 g/dL (32.0-36.0); MEAN CORPUSCULAR VOLUME 89.7 fL (79-99); MONOCYTES % (AUTO) 4.6 % (3.0-13.0); PLATELET COUNT (AUTO) 214 K/uL (130-400); RED CELL DISTRIBUTION WIDTH 12.9 % (11.0-15.5); WHITE BLOOD COUNT (AUTO) 3.9 K/uL (4.8-10.8)
[2020-08-25 06:31] LABS: ALBUMIN 1.7 g/dL (3.5-5.0); BILIRUBIN,TOTAL 0.1 mg/dL (0.2-1.0); CREATININE 0.6 mg/dL (0.5-1.5); POTASSIUM 4.2 mmol/L (3.5-5.1); TOTAL PROTEIN, SERUM 5.3 g/dL (6.0-8.3)
[2020-08-25] MEDS: INSULIN HUMULIN R 100 UNIT/ML 3ML SQ SCH ×7 (06:33→21:28)
[2020-08-25 07:30] VITALS: BP 152/89
[2020-08-25] MEDS ORDERED: GADODIAMIDE 10 MMOL/20 ML VIAL IV ONE ×2 (08:24→09:29)
[2020-08-25] MEDS: FAMOTIDINE/PF 20 MG/2 ML VIAL IV SCH ×2 (09:00→21:25)
[2020-08-25] MEDS ORDERED: MORPHINE SULFATE 2 MG/ML 1ML SYG ONE (09:35)
--- NOTE | 2020-08-25 10:03 | NUR ---
PT AGAIN REFUSED MRCP STUDY STATING HE NEEDS TO BE SEDATED BEFORE HE CAN DO THIS STUDY
[2020-08-25 11:00] VITALS: BP 142/93
[2020-08-25] MEDS: LIPASE/PROTEASE/AMYLASE 5000/17000/24000 PO SCH ×3 (12:00→16:34)
[2020-08-25 12:57] LABS: INR 0.85 (0.85-1.15); PROTHROMBIN TIME 9.2 SEC (9.6-11.6)
[2020-08-25 15:50] VITALS: BP 169/102
--- NOTE | 2020-08-25 16:37 | NUR ---
THE PT RECEIVED 9 UNITS OF REGULAR INSULIN TOTAL, 3 UNITS SCHEDULED AND 6 SLIDING SCALE
[2020-08-25] MEDS: MORPHINE SULFATE 2 MG/ML 1ML SYG IVP PRN (19:10)
[2020-08-25 20:00] VITALS: BP 157/98
[2020-08-25] MEDS: LACTATED RINGERS 1000ML 1,000 ML IV SCH (21:25)
[2020-08-25] MEDS: INSULIN GLARGINE 100 UNITS/ML 10 ML VIAL SQ SCH (21:26)
[2020-08-26] VITALS: BP 122/71
[2020-08-26] MEDS: MORPHINE SULFATE 2 MG/ML 1ML SYG IVP PRN ×2 (00:05→06:05)
[2020-08-26] MEDS: ONDANSETRON HCL 4 MG/2 ML VIAL IV PRN ×2 (00:05→06:09)
[2020-08-26 04:00] VITALS: BP 152/78
[2020-08-26] MEDS: ACETAMINOPHEN-CODEINE 300/30MG TAB PO PRN ×3 (04:44→11:02)
--- NOTE | 2020-08-26 05:07 | NUR ---
REFUSED procedure for am.. Pt states his sister is picking him up in the morning and that he does not want the EUS procedure done.
[2020-08-26 05:18] LABS: EOSINOPHILS % (AUTO) 8.2 % (0.0-8.0); HEMATOCRIT 30.1 % (42-54); MEAN CORPUSCULAR HEMOGLOBIN 29.6 pg (27.0-33.0); MEAN CORPUSCULAR HGB CONC 32.9 g/dL (32.0-36.0); MEAN CORPUSCULAR VOLUME 89.9 fL (79-99); MONOCYTES % (AUTO) 4.6 % (3.0-13.0); PLATELET COUNT (AUTO) 235 K/uL (130-400); RED BLOOD CELL COUNT(AUTO) 3.35 MIL/uL (4.50-6.20); RED CELL DISTRIBUTION WIDTH 12.7 % (11.0-15.5); WHITE BLOOD COUNT (AUTO) 4.1 K/uL (4.8-10.8)
[2020-08-26 05:22] LABS: CREATININE 0.7 mg/dL (0.5-1.5); POTASSIUM 4.3 mmol/L (3.5-5.1)
[2020-08-26] MEDS: INSULIN HUMULIN R 100 UNIT/ML 3ML SQ SCH ×4 (05:56→11:33)
[2020-08-26 08:00] VITALS: BP 139/81
[2020-08-26] MEDS: FAMOTIDINE/PF 20 MG/2 ML VIAL IV SCH (09:01)
[2020-08-26] MEDS: LIPASE/PROTEASE/AMYLASE 5000/17000/24000 PO SCH (09:01)
--- NOTE | 2020-08-26 10:08 | NUR ---
IN THE PROCESS OF HIS DESIRE TO LEAVE AMA, THE PT WOULD LIKE TO ALSO HAVE HIS HANDLEY REMOVED. DR CHAHAL WAS NOTIFIED AND THE REFUSAL FOR TX SIGNED BY THE PT.
--- NOTE | 2020-08-26 10:40 | NUR ---
HANDLEY REMOVED W/O DIFFICULTY OR COMPLICATION. PT TOLERATED W/O COMPLAINT
[2020-08-26 11:39] VITALS: BP 144/90
--- NOTE | 2020-08-26 12:07 | NUR ---
PT IV REMOVED W/O DIFFICULTY OR COMPICATION, PT DISMISSED BY W/C IN GOOD CONDITION, AMA PT REQUESTED.
== END 2020-08-26 12:05 | disposition left against medical advice (07) | DRG 439 ==
LOC: EDH 20:45 → EDHIP 20:46 → 2DH 08-19 09:56 → 3CH 08-19 20:07
PROVIDERS: ADMIT Internal Medicine; ATTEND Internal Medicine
DX: K85.90 Acute pancreatitis without necrosis or infection, unspecified (principal); E87.1 Hypo-osmolality and hyponatremia; N13.2 Hydronephrosis with renal and ureteral calculous obstruction; E46 Unspecified protein-calorie malnutrition; K86.1 Other chronic pancreatitis; R74.8 Abnormal levels of other serum enzymes; E11.65 Type 2 diabetes mellitus with hyperglycemia; E78.5 Hyperlipidemia, unspecified; E11.51 Type 2 diabetes mellitus with diabetic peripheral angiopathy without gangrene; E86.0 Dehydration; F12.90 Cannabis use, unspecified, uncomplicated; L89.152 Pressure ulcer of sacral region, stage 2; I11.0 Hypertensive heart disease with heart failure; I50.9 Heart failure, unspecified; Z20.828 Contact with and (suspected) exposure to other viral communicable diseases; Z68.29 Body mass index [BMI] 29.0-29.9, adult; Z89.512 Acquired absence of left leg below knee; Z89.511 Acquired absence of right leg below knee; Z90.49 Acquired absence of other specified parts of digestive tract; Z79.4 Long term (current) use of insulin; Z91.14 Patient's other noncompliance with medication regimen; Z91.19 Patient's noncompliance with other medical treatment and regimen; Z82.3 Family history of stroke; Z83.3 Family history of diabetes mellitus; Z82.49 Family history of ischemic heart disease and other diseases of the circulatory system
CPT/HCPCS: 36415; 36600; 71045; 74021; 74176; 76705; 80048; 80053; 80061; 80076; 81001; 82150; 82550; 82803; 82947; 82948; 83036; 83690; 83735; 83930; 84145; 84443; 84484; 85025; 85610; 85730; 87040; 87324; 87426; 87507; 93005; A4344; A9579; G0378; J1170; J1815; J2060; J2270; J2405; J3475; J3490; J7030; J7120; Q0163; U0003

== ENCOUNTER 2020-08-27 22:51 | Inpatient (IN) | payer OTHER ==
[~2020-08-27] VITALS: Ht 167.6 cm; Wt 64.1 kg
[2020-08-27] MEDS ORDERED: METOCLOPRAMIDE 10 MG/2 ML VIAL ONE (23:13)
[2020-08-27] MEDS ORDERED: ONDANSETRON HCL 4 MG/2 ML VIAL ONE (23:13)
[2020-08-27] MEDS ORDERED: PANTOPRAZOLE 40 MG/VIAL ONE (23:14)
[2020-08-27] MEDS ORDERED: FAMOTIDINE/PF 20 MG/2 ML VIAL IV ONE (23:14)
[2020-08-27 23:23] LABS: ABG OXYGEN SATURATION 58.7 % (95.0-99.0); BASE EXCESS,VENOUS BLOOD GAS -1.4 (-2.0-3.0); HCO3,VENOUS BLOOD GAS 25.3 (21.0-28.0); PCO2,VENOUS BLOOD GAS 50 (35-48); PH,VENOUS BLOOD GAS 7.325 (7.350-7.450)
[2020-08-27 23:27] LABS: BASOPHILS % (AUTO) 0.8 % (0.0-5.0); EOSINOPHILS % (AUTO) 2.1 % (0.0-8.0); HEMATOCRIT 34.9 % (42-54); MEAN CORPUSCULAR HEMOGLOBIN 30.3 pg (27.0-33.0); MEAN CORPUSCULAR HGB CONC 31.5 g/dL (32.0-36.0); MEAN CORPUSCULAR VOLUME 96.1 fL (79-99); MONOCYTES % (AUTO) 3.8 % (3.0-13.0); NEUTROPHILS % (AUTO) 67.3 % (40.0-77.0); PLATELET COUNT (AUTO) 234 K/uL (130-400); RED BLOOD CELL COUNT(AUTO) 3.63 MIL/uL (4.50-6.20); RED CELL DISTRIBUTION WIDTH 13.3 % (11.0-15.5); WHITE BLOOD COUNT (AUTO) 4.8 K/uL (4.8-10.8)
[2020-08-27 23:39] LABS: INR 0.81 (0.85-1.15); PARTIAL THROMBOPLASTIN TIME 23.9 SEC (26.3-35.5); PROTHROMBIN TIME 8.8 SEC (9.6-11.6)
[2020-08-27 23:49] LABS: ALBUMIN 2.6 g/dL (3.5-5.0); BILIRUBIN,TOTAL 0.2 mg/dL (0.2-1.0); POTASSIUM 4.9 mmol/L (3.5-5.1); TOTAL PROTEIN, SERUM 6.5 g/dL (6.0-8.3)
[2020-08-27 23:52] LABS: APPEARANCE,URINE Clear (CLEAR); BILIRUBIN,URINE Negative (NEGATIVE); COLOR,URINE Yellow (YELLOW); GLUCOSE, URINE (UA) >=1000 mg/dL (NEGATIVE); KETONES,URINE Negative (NEGATIVE); LEUKOCYTE ESTERASE ,URINE Negative (NEGATIVE); NITRATE,URINE Negative (NEGATIVE); OCCULT BLOOD,URINE Trace (NEGATIVE); PROTEIN,URINE POS 2+ mg/dL (NEGATIVE); UROBILINOGEN,URINE 0.2 mg/dL (0.2-1.0)
[2020-08-28 00:01] LABS: AMPHET/METH SCREEN,URINE NEGATIVE (NEGATIVE); BARBITURATE SCREEN, URINE NEGATIVE (NEGATIVE); BENZODIAZEPINES SCREEN,URINE NEGATIVE (NEGATIVE); CANNABINOID SCREEN,URINE POSITIVE (NEGATIVE); COCAINE SCREEN,URINE POSITIVE (NEGATIVE); OPIATE SCREEN,URINE NEGATIVE (NEGATIVE); PHENCYCLIDINE SCREEN,URINE NEGATIVE (NEGATIVE)
[2020-08-28 00:06] LABS: BACTERIA,URINE Few /HPF (None Seen); RBC,URINE 0-1 /HPF (0-1); SQUAMOUS EPITHELIAL CELL,UR 0-2 /HPF (0-2)
[2020-08-28] MEDS ORDERED: INSULIN HUMULIN R 100 UNIT/ML 3ML ONE ×2 (00:14→01:36)
[2020-08-28] MEDS ORDERED: DiphenhydrAMINE HCL 50 MG/ML VIAL ONE (00:31)
[2020-08-28] MEDS ORDERED: KETOROLAC TROMETHAMINE 30MG/ML ONE (00:31)
[2020-08-28] MEDS ORDERED: POTASSIUM CHLORIDE 20MEQ/100ML 100 ML IV PRN (01:30)
[2020-08-28] MEDS ORDERED: SODIUM CHLORIDE 0.9% 1000ML 1,000 ML IV SCH (01:30)
[2020-08-28] MEDS ORDERED: DEXTROSE 5 %-0.45 % NACL 1,000 ML IV PRN (01:30)
[2020-08-28] MEDS ORDERED: LIDOCAINE HCL-MPF 1% 2ML VIAL IJ PRN (01:30)
[2020-08-28] MEDS ORDERED: MAGNESIUM 2GM PREMIX 50ML 50 ML IV PRN (01:30)
[2020-08-28] MEDS ORDERED: INSULIN HUMULIN R 100 UNIT/ML 3ML IV SCH (01:30)
[2020-08-28] MEDS ORDERED: SODIUM CHLORIDE 0.9% 100 ML IV ONE (01:32)
[2020-08-28 02:20] LABS: ABG BASE EXCESS -6.1 mmol/L (-2.0-3.0); ABG HCO3 18.7 mmol/L (21.0-28.0); ABG PCO2 35 mmHg (35-48)
[2020-08-28 02:26] LABS: HEMATOCRIT 29.8 % (42-54); MEAN CORPUSCULAR HEMOGLOBIN 30.6 pg (27.0-33.0); MEAN CORPUSCULAR HGB CONC 32.6 g/dL (32.0-36.0); PLATELET COUNT (AUTO) 206 K/uL (130-400); RED BLOOD CELL COUNT(AUTO) 3.17 MIL/uL (4.50-6.20); WHITE BLOOD COUNT (AUTO) 5.9 K/uL (4.8-10.8)
[2020-08-28] MEDS ORDERED: HYDROMORPHONE HCL 0.5 MG/0.5 ML ML ONE ×3 (02:30→08:27)
[2020-08-28] MEDS ORDERED: DIPHENHYDRAMINE HCL 25 MG CAPSULE PO PRN (02:45)
[2020-08-28] MEDS ORDERED: GLUCAGON 1MG KIT 1 MG ML IM PRN (02:45)
[2020-08-28] MEDS ORDERED: ACETAMINOPHEN 325 MG TAB PO PRN ×2 (02:45)
[2020-08-28] MEDS ORDERED: DEXTROSE 50%-WATER 50 ML DISP.SYRIN IV PRN (02:45)
[2020-08-28] MEDS ORDERED: NITROGLYCERIN 0.4 MG SL TAB SL PRN (02:45)
[2020-08-28 03:13] LABS: HEMOGLOBIN A1C 13.6 % (4.0-6.0)
[2020-08-28 03:39] LABS: BAND NEUTROPHILS % (MANUAL) 3 % (0-2); EOSINOPHILS % (MANUAL) 3 % (1-6); LYMPHOCYTES % (MANUAL) 23 % (22-44); SEGMENTED NEUTROPHILS % 71 % (40-70)
[2020-08-28 03:40] LABS: MAN.DIFF COMMENT-IMPRESSION MANUAL DIFFERENTIAL; PLATELET MORPHOLOGY COMMENT ADEQUATE
[2020-08-28 04:33] LABS: HEMATOCRIT 26.8 % (42-54); MEAN CORPUSCULAR HGB CONC 32.1 g/dL (32.0-36.0); MEAN CORPUSCULAR VOLUME 93.4 fL (79-99); PLATELET COUNT (AUTO) 198 K/uL (130-400); RED BLOOD CELL COUNT(AUTO) 2.87 MIL/uL (4.50-6.20); RED CELL DISTRIBUTION WIDTH 12.9 % (11.0-15.5); WHITE BLOOD COUNT (AUTO) 5.6 K/uL (4.8-10.8)
[2020-08-28 05:18] LABS: ALBUMIN 1.9 g/dL (3.5-5.0); BILIRUBIN,TOTAL 0.1 mg/dL (0.2-1.0); CREATININE 0.8 mg/dL (0.5-1.5); POTASSIUM 3.5 mmol/L (3.5-5.1)
[2020-08-28 05:53] LABS: BASOPHILS % (MANUAL) 3 % (0-2); EOSINOPHILS % (MANUAL) 5 % (1-6); LYMPHOCYTES % (MANUAL) 36 % (22-44); MAN.DIFF COMMENT-IMPRESSION MANUAL DIFFERENTIAL; MONOCYTES % (MANUAL) 6 % (2-9); SEGMENTED NEUTROPHILS % 50 % (40-70)
[2020-08-28 05:54] LABS: PLATELET MORPHOLOGY COMMENT ADEQUATE
[2020-08-28 06:03] LABS: ABG BASE EXCESS -2.3 mmol/L (-2.0-3.0); ABG HCO3 22.3 mmol/L (21.0-28.0); ABG OXYGEN SATURATION 97.8 % (95.0-99.0); ABG PCO2 38 mmHg (35-48)
[2020-08-28] MEDS ORDERED: ONDANSETRON HCL 4 MG/2 ML VIAL ONE (08:20)
[2020-08-28] MEDS: ENOXAPARIN SODIUM 30 MG/0.3 ML SQ SCH (09:00)
[2020-08-28] MEDS: FAMOTIDINE/PF 20 MG/2 ML VIAL IV SCH ×2 (09:00→19:29)
[2020-08-28 09:13] LABS: CREATININE 0.6 mg/dL (0.5-1.5); MAGNESIUM 1.7 mg/dL (1.80-2.40); POTASSIUM 3.5 mmol/L (3.5-5.1)
[2020-08-28] MEDS ORDERED: DEXTROSE 5 %-0.45 % NACL 1,000 ML IV ONE (09:38)
[2020-08-28] MEDS ORDERED: SODIUM CHLORIDE 0.9% 1000ML 1,000 ML IV ONE (11:05)
[2020-08-28] MEDS ORDERED: INSULIN GLARGINE 100 UNITS/ML 10 ML VIAL SQ SCH (12:00)
[2020-08-28 12:20] LABS: CREATININE 0.5 mg/dL (0.5-1.5); MAGNESIUM 1.5 mg/dL (1.80-2.40); POTASSIUM 3.6 mmol/L (3.5-5.1)
[2020-08-28] MEDS: DEXTROSE 5 % AND 0.9 % NACL 1,000 ML IV SCH ×2 (12:23→19:33)
[2020-08-28] MEDS: HYDROMORPHONE HCL 2 MG/ML VIAL IVP PRN ×2 (14:41→20:49)
[2020-08-28] MEDS: ONDANSETRON HCL 4 MG/2 ML VIAL IV PRN ×2 (14:41→20:48)
--- NOTE | 2020-08-28 15:26 | NUR ---
CHART CHECK COMPLETED. Pt IS AN 45-YEAR-OLD MALE ADMITTED SECONDARY TO [facility]/C. PAST MEDICAL HISTORY SIGNIFICANT FOR DIABETES, PANCREATITIS, HYPERTENSION, HYPERLIPIDEMIA, URINARY RETENTION, MEDICAL NONCOMPLIANCE, BILATERAL BKA, CHOLECYSTECTOMY. PT CURRENTLY NPO SECONDARY TO ADMITTING DIAGNOSIS. PLEASE REQUEST FORMAL SKILLED SPEECH/SWALLOW EVALUATION IF Pt PRESENTS WITH +S/S OF ASPIRATION AT MEAL TIMES SUCH COUGHING, WET VOCAL QUALITY, OR THROAT CLEAR. Addendum: 08/28/20 at 1528 by KELIN RAMIREZ, [facility] Amended: Links added.
--- NOTE | 2020-08-28 15:59 | NUR ---
CM NOTE/IA UNSUCCESSFUL MET WITH PATIENT IN ROOM, PATIENT VERY DROWSY. NEXT OF KIN CALLED, BRANDY BARAHONA [phone], STRAIGHT TO VOICEMAIL. PHONE NUMBER SEEMS TO BE INCORRECT A VOICEMAIL FOR A [facility] WAS HEARD. CM TO FOLLOW UP FOR IA. Addendum: 08/28/20 at 1600 by TOYIN CASAREZ RN CM Amended: Links added.
[2020-08-28 16:08] LABS: CREATININE 0.5 mg/dL (0.5-1.5); MAGNESIUM 1.9 mg/dL (1.80-2.40); POTASSIUM 3.6 mmol/L (3.5-5.1)
[2020-08-28 16:34] VITALS: BP 125/70
[2020-08-28] MEDS: INSULIN HUMULIN R 100 UNIT/ML 3ML SQ SCH (17:49)
--- NOTE | 2020-08-28 19:18 | NUR ---
DR. Alex MIKE WHEN REPORT WAS RECEIVED FROM ER NURSE SHARONDA I WAS ADVISED DR. CONSULTS HAD BEEN NOTIFIED TO INCLUDE DR. Alex MIKE. AT APPROX 16:30 HOURS I HAD NOT SEEN DR. MIKE, I ATTEMPTED TO CONTACT DR. MIKE BY CALLING THE OFFICE TO CONFIRM NOTIFICATION OF CONSULT. NO ANSWER, LEFT MESSAGE.
[2020-08-28 20:46] VITALS: BP 140/86
[2020-08-28 23:32] VITALS: BP 130/79
[2020-08-29] MEDS: DEXTROSE 5 % AND 0.9 % NACL 1,000 ML IV SCH ×3 (02:28→14:10)
[2020-08-29] MEDS: ONDANSETRON HCL 4 MG/2 ML VIAL IV PRN (02:42)
[2020-08-29] MEDS: HYDROMORPHONE HCL 2 MG/ML VIAL IVP PRN (02:42)
[2020-08-29 03:59] VITALS: BP 121/77
[2020-08-29 04:20] LABS: CREATININE 0.5 mg/dL (0.5-1.5); POTASSIUM 3.5 mmol/L (3.5-5.1)
[2020-08-29 08:00] VITALS: BP 136/71
[2020-08-29] MEDS ORDERED: HYDROMORPHONE HCL 0.5 MG/0.5 ML ML ONE ×2 (09:02→17:19)
[2020-08-29] MEDS: ENOXAPARIN SODIUM 30 MG/0.3 ML SQ SCH (09:05)
[2020-08-29] MEDS: FAMOTIDINE/PF 20 MG/2 ML VIAL IV SCH ×2 (09:05→20:43)
[2020-08-29] MEDS: INSULIN GLARGINE 100 UNITS/ML 10 ML VIAL SQ SCH (09:06)
[2020-08-29] MEDS: INSULIN HUMULIN R 100 UNIT/ML 3ML SQ SCH ×4 (09:11→20:44)
[2020-08-29 12:00] VITALS: BP 127/77
[2020-08-29] MEDS: LIPASE/PROTEASE/AMYLASE 5000/17000/24000 PO SCH ×2 (12:08→17:20)
--- NOTE | 2020-08-29 12:12 | NUR ---
CM NOTE/IA IA DONE BY LEANN MERLOS. PER PATIENT, LIVES WITH SISTER, HAS USE OF WHEELCHAIR, NO PROVIDERS AND FEELS SAFE TO RETURN HOME ONCE DISCHARGED FROM HOSPITAL. PATIENT SEES DR. SHIRLENE AMBRIZ AT [facility]. Addendum: 08/29/20 at 1213 by TOYIN CASAREZ RN CM Amended: Links added.
[2020-08-29] MEDS ORDERED: KETOROLAC TROMETHAMINE 15MG/ML IV PRN (12:30)
[2020-08-29] MEDS ORDERED: TRAMADOL HCL 50 MG TABLET PO PRN ×2 (15:30)
[2020-08-29] MEDS ORDERED: TRAMADOL HCL 50 MG TABLET ONE (15:33)
[2020-08-29 16:00] VITALS: BP 166/84
[2020-08-29 19:44] VITALS: BP 131/79
[2020-08-29 23:58] VITALS: BP 144/75
[2020-08-30 04:39] VITALS: BP 143/83
[2020-08-30 06:23] LABS: EOSINOPHILS % (AUTO) 6.1 % (0.0-8.0); HEMATOCRIT 27.5 % (42-54); LYMPHOCYTES % (AUTO) 31.6 % (21.0-51.0); MEAN CORPUSCULAR HEMOGLOBIN 30.4 pg (27.0-33.0); MEAN CORPUSCULAR HGB CONC 33.8 g/dL (32.0-36.0); MEAN CORPUSCULAR VOLUME 89.9 fL (79-99); PLATELET COUNT (AUTO) 216 K/uL (130-400); RED BLOOD CELL COUNT(AUTO) 3.06 MIL/uL (4.50-6.20); RED CELL DISTRIBUTION WIDTH 12.8 % (11.0-15.5)
[2020-08-30 06:43] LABS: CREATININE 0.7 mg/dL (0.5-1.5); MAGNESIUM 1.6 mg/dL (1.80-2.40)
[2020-08-30 07:00] VITALS: BP 148/87
[2020-08-30] MEDS: INSULIN HUMULIN R 100 UNIT/ML 3ML SQ SCH ×4 (07:18→12:56)
[2020-08-30] MEDS: LIPASE/PROTEASE/AMYLASE 5000/17000/24000 PO SCH ×2 (08:00→12:56)
[2020-08-30] MEDS ORDERED: HYDROMORPHONE HCL 0.5 MG/0.5 ML ML ONE (10:41)
[2020-08-30] MEDS: FAMOTIDINE/PF 20 MG/2 ML VIAL IV SCH (10:48)
[2020-08-30] MEDS: INSULIN GLARGINE 100 UNITS/ML 10 ML VIAL SQ SCH (10:49)
[2020-08-30] MEDS: ENOXAPARIN SODIUM 30 MG/0.3 ML SQ SCH (10:49)
[2020-08-30 11:00] VITALS: BP 150/74
--- NOTE | 2020-08-30 12:30 | NUR ---
PT STATES UNDERSTANDING OF DISCHARGE INSTRUCTIONS AND MEDICATION SCHEDULE. IV REMOVED W/O DIFFICULTY OR COMPLICATION, DISMISSED BY W/C IN GOOD CONDITION ACCOMPANIED BY FAMILY AND STAFF.
== END 2020-08-30 14:00 | disposition home or self-care (01) | DRG 638 ==
LOC: EDH 22:51 → EDHIP 22:52 → 4AH 08-28 11:46
PROVIDERS: ADMIT Family Medicine; ATTEND Family Medicine
DX: E11.10 Type 2 diabetes mellitus with ketoacidosis without coma (principal); K86.1 Other chronic pancreatitis; F11.20 Opioid dependence, uncomplicated; E46 Unspecified protein-calorie malnutrition; F14.20 Cocaine dependence, uncomplicated; I11.0 Hypertensive heart disease with heart failure; I50.9 Heart failure, unspecified; E86.1 Hypovolemia; E86.0 Dehydration; R19.7 Diarrhea, unspecified; E78.5 Hyperlipidemia, unspecified; R74.8 Abnormal levels of other serum enzymes; R33.9 Retention of urine, unspecified; F12.20 Cannabis dependence, uncomplicated; E83.42 Hypomagnesemia; Z20.828 Contact with and (suspected) exposure to other viral communicable diseases; K75.9 Inflammatory liver disease, unspecified; Z91.19 Patient's noncompliance with other medical treatment and regimen; Z91.14 Patient's other noncompliance with medication regimen; Z89.512 Acquired absence of left leg below knee; Z89.511 Acquired absence of right leg below knee; Z79.4 Long term (current) use of insulin; Z83.3 Family history of diabetes mellitus; Z82.3 Family history of stroke; Z82.49 Family history of ischemic heart disease and other diseases of the circulatory system
CPT/HCPCS: 36415; 36600; 71045; 74176; 80048; 80053; 80305; 81001; 82010; 82550; 82803; 82948; 83036; 83605; 83690; 83735; 83930; 84132; 84478; 84484; 85025; 85610; 85730; 87040; 87046; 87177; 87426; 93005; C9113; G0378; J1170; J1200; J1650; J1815; J1885; J2405; J2765; J3475; J3490; J7030; J7042; U0003

== ENCOUNTER 2020-09-17 16:21 | Inpatient (IN) | payer OTHER ==
[~2020-09-17] VITALS: Ht 167.6 cm; Wt 68.0 kg
[~2020-09-17 16:21] MED LIST changes: -LEVO750T46 PO
[2020-09-17 16:56] LABS: BASOPHILS % (AUTO) 0.3 % (0.0-5.0); EOSINOPHILS % (AUTO) 0.9 % (0.0-8.0); HEMATOCRIT 28.1 % (42-54); LYMPHOCYTES % (AUTO) 10.9 % (21.0-51.0); MEAN CORPUSCULAR HEMOGLOBIN 29.4 pg (27.0-33.0); MEAN CORPUSCULAR HGB CONC 32.4 g/dL (32.0-36.0); MEAN CORPUSCULAR VOLUME 90.9 fL (79-99); MONOCYTES % (AUTO) 3.4 % (3.0-13.0); NEUTROPHILS % (AUTO) 84.2 % (40.0-77.0); PLATELET COUNT (AUTO) 116 K/uL (130-400); RED BLOOD CELL COUNT(AUTO) 3.09 MIL/uL (4.50-6.20); RED CELL DISTRIBUTION WIDTH 12.6 % (11.0-15.5); WHITE BLOOD COUNT (AUTO) 6.8 K/uL (4.8-10.8)
[2020-09-17] MEDS ORDERED: ONDANSETRON HCL 4 MG/2 ML VIAL ONE (16:57)
[2020-09-17] MEDS ORDERED: SODIUM CHLORIDE 0.9% 1000ML 1,000 ML IV ONE ×3 (16:58→22:13)
[2020-09-17 17:11] LABS: CREATININE 0.9 mg/dL (0.5-1.5); POTASSIUM 3.4 mmol/L (3.5-5.1)
[2020-09-17 17:13] LABS: ALBUMIN 1.8 g/dL (3.5-5.0); BILIRUBIN,TOTAL 0.2 mg/dL (0.2-1.0); TOTAL PROTEIN, SERUM 5.7 g/dL (6.0-8.3)
[2020-09-17] MEDS ORDERED: MORPHINE SULFATE 4 MG/1ML SYG ONE (17:40)
[2020-09-17] MEDS ORDERED: INSULIN HUMULIN R 100 UNIT/ML 3ML ONE (17:52)
[2020-09-17 18:28] LABS: ABG BASE EXCESS -2.6 mmol/L (-2.0-3.0); ABG HCO3 22.1 mmol/L (21.0-28.0); ABG OXYGEN SATURATION 97.7 % (95.0-99.0); ABG PCO2 38 mmHg (35-48)
[2020-09-17] MEDS ORDERED: ACETAMINOPHEN 325 MG TAB PO PRN ×2 (21:00)
[2020-09-17] MEDS: FAMOTIDINE/PF 20 MG/2 ML VIAL IV SCH (21:00)
[2020-09-17] MEDS: SODIUM CHLORIDE 0.9% 1000ML 1,000 ML IV SCH (21:00)
[2020-09-17] MEDS ORDERED: INSULIN REGULAR, HUMAN 3ML 100 UNIT in SODIUM CHLORIDE 0.9% 99 ML IV PRN ×2 (21:00)
[2020-09-17 21:12] LABS: CHOLESTEROL 103 mg/dL (<200); HDL CHOLESTEROL 49 mg/dL (29-71); LDL DIRECT 42 mg/dL (0-99); LIPASE 494 U/L (114-286); TRIGLYCERIDES 161 mg/dL (30-200)
[2020-09-17] MEDS ORDERED: MORPHINE SULFATE 2 MG/ML 1ML SYG ONE (22:13)
[2020-09-17] MEDS ORDERED: FAMOTIDINE/PF 20 MG/2 ML VIAL IV ONE (22:14)
[2020-09-17] MEDS ORDERED: POTASSIUM CHLORIDE 10MEQ/100ML 100 ML IV PRN (22:30)
[2020-09-17] MEDS ORDERED: LIDOCAINE HCL-MPF 1% 2ML VIAL IV PRN (22:30)
[2020-09-17] MEDS ORDERED: POTASSIUM CHLORIDE 10% ELIXIR 20 MEQ/15 ML UDCUP PO PRN (22:30)
[2020-09-17] MEDS ORDERED: POTASSIUM CHLORIDE 10% ELIXIR 20 MEQ/15 ML UDCUP ONE (23:52)
[2020-09-18] MEDS ORDERED: POTASSIUM CHLORIDE 10% ELIXIR 20 MEQ/15 ML UDCUP ONE (02:24)
[2020-09-18] MEDS ORDERED: MORPHINE SULFATE 2 MG/ML 1ML SYG ONE ×2 (02:24→07:54)
[2020-09-18] MEDS ORDERED: ONDANSETRON HCL 4 MG/2 ML VIAL ONE ×2 (02:27→07:56)
[2020-09-18 05:33] LABS: BASOPHILS % (AUTO) 0.4 % (0.0-5.0); EOSINOPHILS % (AUTO) 1.6 % (0.0-8.0); HEMATOCRIT 24.4 % (42-54); LYMPHOCYTES % (AUTO) 17.4 % (21.0-51.0); MEAN CORPUSCULAR HEMOGLOBIN 29.9 pg (27.0-33.0); MEAN CORPUSCULAR VOLUME 87.8 fL (79-99); MONOCYTES % (AUTO) 3.6 % (3.0-13.0); NEUTROPHILS % (AUTO) 76.6 % (40.0-77.0); PLATELET COUNT (AUTO) 298 K/uL (130-400); RED BLOOD CELL COUNT(AUTO) 2.78 MIL/uL (4.50-6.20); RED CELL DISTRIBUTION WIDTH 12.2 % (11.0-15.5); WHITE BLOOD COUNT (AUTO) 8.3 K/uL (4.8-10.8)
[2020-09-18 05:59] LABS: ALBUMIN 1.4 g/dL (3.5-5.0); BILIRUBIN,TOTAL 0.1 mg/dL (0.2-1.0); CREATININE 0.6 mg/dL (0.5-1.5); POTASSIUM 3.6 mmol/L (3.5-5.1); TOTAL PROTEIN, SERUM 4.9 g/dL (6.0-8.3)
[2020-09-18 06:02] LABS: APPEARANCE,URINE Clear (CLEAR); BILIRUBIN,URINE Negative (NEGATIVE); COLOR,URINE Yellow (YELLOW); GLUCOSE, URINE (UA) >=1000 mg/dL (NEGATIVE); KETONES,URINE Negative (NEGATIVE); LEUKOCYTE ESTERASE ,URINE Negative (NEGATIVE); NITRATE,URINE Negative (NEGATIVE); OCCULT BLOOD,URINE Trace (NEGATIVE); PH,URINE 5.5 (5.0-8.0); PROTEIN,URINE 300 mg/dL (NEGATIVE); UROBILINOGEN,URINE 0.2 mg/dL (0.2-1.0)
[2020-09-18 06:12] LABS: BACTERIA,URINE Few /HPF (None Seen); RBC,URINE 0-1 /HPF (0-1); SQUAMOUS EPITHELIAL CELL,UR 0-2 /HPF (0-2); WBC,URINE 0-1 /HPF (0-1); YEAST,URINE BUDDING Few /HPF (None Seen)
[2020-09-18] MEDS: CEFTRIAXONE SODIUM 1 GM IVP SCH ×2 (06:45→18:28)
[2020-09-18] MEDS ORDERED: CLINDAMYCIN 300 MG/D5W 50 ML 50 ML IV SCH (06:45)
[2020-09-18] MEDS ORDERED: CLINDAMYCIN 300 MG/D5W 50 ML 50 ML IV ONE (06:53)
[2020-09-18] MEDS ORDERED: CEFTRIAXONE SODIUM 1 GM ONE (06:53)
[2020-09-18] MEDS: SODIUM CHLORIDE 0.9% 1000ML 1,000 ML IV SCH ×2 (07:00→17:00)
[2020-09-18] MEDS: INSULIN HUMULIN R 100 UNIT/ML 3ML SQ SCH ×4 (07:30→22:03)
[2020-09-18] MEDS: INSULIN LISPRO 100 UNIT/ML 3ML SQ SCH ×3 (08:00→17:00)
[2020-09-18] MEDS: FAMOTIDINE/PF 20 MG/2 ML VIAL IV SCH ×2 (09:00→22:02)
[2020-09-18] MEDS: INSULIN GLARGINE 100 UNITS/ML 10 ML VIAL SQ SCH (09:00)
[2020-09-18] MEDS ORDERED: FAMOTIDINE/PF 20 MG/2 ML VIAL IV ONE (09:29)
[2020-09-18] MEDS ORDERED: RENAL DOSE IV SCH (10:00)
[2020-09-18 10:12] LABS: CREATINE KINASE, TOTAL 53 U/L (21-232)
[2020-09-18] MEDS ORDERED: HYDROMORPHONE HCL 0.5 MG/0.5 ML ML ONE (10:59)
[2020-09-18] MEDS ORDERED: SODIUM CHLORIDE 0.9% 500ML 500 ML IV ONE (11:00)
[2020-09-18] MEDS ORDERED: VANCOMYCIN PROTOCOL PER PHARMACY IV SCH (12:45)
[2020-09-18] MEDS ORDERED: COMPOUND IV REFRIGERATED 1 EACH IVSOLN MISC PRN (13:00)
[2020-09-18] MEDS ORDERED: VANCOMYCIN 1.25 GM in SODIUM CHLORIDE 0.9% 250 ML IV ONE (14:00)
[2020-09-18 14:10] VITALS: BP 121/69
[2020-09-18] MEDS: MORPHINE SULFATE 2 MG/ML 1ML SYG IV PRN ×3 (14:59→23:10)
[2020-09-18] MEDS: ONDANSETRON HCL 4 MG/2 ML VIAL IV PRN ×3 (15:00→23:10)
[2020-09-18 16:17] VITALS: BP 125/76
[2020-09-18 20:00] VITALS: BP 136/77
[2020-09-18 23:36] VITALS: BP 108/76
[2020-09-19] VITALS (23 sets, daily range): BP systolic 113–149; BP diastolic 66–100
[2020-09-19] MEDS: SODIUM CHLORIDE 0.9% 1000ML 1,000 ML IV SCH ×3 (03:00→15:30)
[2020-09-19] MEDS: MORPHINE SULFATE 2 MG/ML 1ML SYG IV PRN ×2 (03:31→17:12)
[2020-09-19 04:30] LABS: BASOPHILS % (AUTO) 0.3 % (0.0-5.0); EOSINOPHILS % (AUTO) 1.2 % (0.0-8.0); HEMATOCRIT 25.1 % (42-54); LYMPHOCYTES % (AUTO) 19.4 % (21.0-51.0); MEAN CORPUSCULAR HEMOGLOBIN 29.9 pg (27.0-33.0); MEAN CORPUSCULAR HGB CONC 33.5 g/dL (32.0-36.0); MEAN CORPUSCULAR VOLUME 89.3 fL (79-99); MONOCYTES % (AUTO) 2.9 % (3.0-13.0); NEUTROPHILS % (AUTO) 75.9 % (40.0-77.0); PLATELET COUNT (AUTO) 343 K/uL (130-400); RED BLOOD CELL COUNT(AUTO) 2.81 MIL/uL (4.50-6.20); RED CELL DISTRIBUTION WIDTH 12.4 % (11.0-15.5); WHITE BLOOD COUNT (AUTO) 5.9 K/uL (4.8-10.8)
[2020-09-19 04:49] LABS: ALANINE AMINOTRANSFERASE 22 U/L (12-78); ALBUMIN 1.2 g/dL (3.5-5.0); ASPARTATE AMINOTRANSFERASE 18 U/L (10-37); BILIRUBIN,TOTAL 0.1 mg/dL (0.2-1.0); CARBON DIOXIDE 24 mmol/L (21-32); CHLORIDE 106 mmol/L (101-111); CREATININE 0.5 mg/dL (0.5-1.5); GLOMERULAR FILTR. RATE CALC 190 mL/min (>60); GLUCOSE,RANDOM 215 mg/dL (70-105); POTASSIUM 3.1 mmol/L (3.5-5.1); SODIUM SERUM 135 mmol/L (136-145); TOTAL PROTEIN, SERUM 4.7 g/dL (6.0-8.3); UREA NITROGEN, BLOOD 10 mg/dL (7-18)
[2020-09-19 05:47] LABS: ERYTHROCYTE SEDIMENTATION RATE 80 MM/HR (0-15)
[2020-09-19] MEDS: VANCOMYCIN 1GM+NS 250ML 250 ML IV SCH ×2 (06:00→14:35)
[2020-09-19] MEDS: INSULIN HUMULIN R 100 UNIT/ML 3ML SQ SCH ×4 (06:02→21:36)
[2020-09-19] MEDS: CEFTRIAXONE SODIUM 1 GM IVP SCH ×2 (06:45→19:44)
--- NOTE | 2020-09-19 06:52 | NUR ---
IV maribel piv infiltrated yodit rn attempted twice er nurse weston- attempted twice unsuccessful dj housekeeper child care notified, patient is scheduled for left knee excision and drainage with possible debridement with dr platt today k of 3.1 covered with 20meq iv abx not given this am due to no iv access
[2020-09-19] MEDS: INSULIN LISPRO 100 UNIT/ML 3ML SQ SCH ×3 (08:00→17:09)
[2020-09-19] MEDS: INSULIN GLARGINE 100 UNITS/ML 10 ML VIAL SQ SCH (09:00)
[2020-09-19] MEDS: FAMOTIDINE/PF 20 MG/2 ML VIAL IV SCH ×2 (09:00→21:29)
[2020-09-19] MEDS ORDERED: MORPHINE SULFATE 2 MG/ML 1ML SYG IM PRN (09:30)
--- NOTE | 2020-09-19 10:41 | NUR ---
PATIENT HAS HAD UNSUCCESSFUL ATTEMPTS FOR IV SINCE LAST NIGHT .. TODAY UNSUCCESSFUL WELL . PROJECT BUILDER AWARE ,PRIMARY AWARE . ANTIBIOTICS ON STANDBY DUE TO NO IV . NOTIFIED ALSO DR GARCIA PT WITH NO IV ACCESS . PATIENT Addendum: 09/19/20 at 1048 by BRAXTON SELBY RN RN PATIENT UPSET DUE TO NO ACCESS . REQUESTING PAIN MED AND GAVE PER IM FOR NOW .PATIENT STATES MIGHT WANT TO LEAVE AMA , PRIMARY INFORMED
--- NOTE | 2020-09-19 13:02 | NUR ---
DCP CM met with pt in room discussed dc plans. Pt is mostly independent prior to admission, does everything by himself, currently lives with sister and father. Pt has a wheelchair. Denies any other equipments/services. Feels safe to go back home, family able to assist with transportation and needs as necessary. Pt is a selfpay, HAC assisting, currently goes to [facility] for MD marroquin/jazmín, given [employer] packet. Pt verbalized her sister's car is currently not working, family trying to fix. Pt made aware CM can arranged EMS if needed once ready to DC, but it will have to be private pay, given estimate amount. Per pt hopefully by the time he goes car will be fix. Agreeable for EMS transport if needed once ready to DC and sister car still not working. DC plan to home once stable. CM to continue to follow up. Addendum: 09/19/20 at 1310 by YAYO ROONEY LVN CM Amended: Links added.
[2020-09-19] MEDS ORDERED: SUCCINYLCHOLINE CHLORIDE 20 MG/ML 10 ML VIAL ONE (14:03)
[2020-09-19] MEDS ORDERED: LIDOCAINE PF 2% 5ML ABBOJECT ONE (14:04)
[2020-09-19] MEDS ORDERED: ROCURONIUM 10MG/1ML SYR 10 MG/ML ML ONE (14:04)
[2020-09-19] MEDS ORDERED: PROPOFOL 10 MG/ML 20ML VIAL IV ONE (14:04)
[2020-09-19] MEDS ORDERED: MIDAZOLAM HCL 1 MG/ML 2ML VIAL ONE (14:05)
[2020-09-19] MEDS ORDERED: FENTANYL CITRATE PF 50 MCG/1 ML 2ML VIAL ONE (14:49)
[2020-09-19] MEDS ORDERED: GLYCOPYRROLATE 1 MG/5 ML SYRINGE ONE (15:08)
[2020-09-19] MEDS ORDERED: NEOSTIGMINE 5MG/5ML SYR IV ONE (15:08)
[2020-09-19] MEDS ORDERED: DIPHENHYDRAMINE HCL 25 MG CAPSULE PO PRN (15:30)
[2020-09-19] MEDS ORDERED: FERROUS FUMARATE 324 MG TABLET PO PRN (15:30)
[2020-09-19] MEDS ORDERED: DiphenhydrAMINE HCL 50 MG/ML VIAL IVP PRN (15:30)
[2020-09-19] MEDS: ACETAMINOPHEN EXTRA STRENGTH 500 MG TABLET PO SCH ×2 (15:30→23:30)
[2020-09-19] MEDS ORDERED: POTASSIUM CHLORIDE 20MEQ/100ML 100 ML IV PRN (15:30)
[2020-09-19] MEDS ORDERED: HYDROMORPHONE 1 MG/1 ML AMP ONE ×2 (17:22→21:39)
[2020-09-19] MEDS ORDERED: HYDROMORPHONE HCL 2 MG/ML VIAL IVP ONE (17:30)
[2020-09-19] MEDS ORDERED: HYDROMORPHONE HCL 2 MG/ML VIAL IVP PRN (17:45)
[2020-09-19] MEDS ORDERED: ACETAMINOPHEN-CODEINE 300/30MG TAB PO PRN (17:45)
[2020-09-19] MEDS: POTASSIUM CHLORIDE 20 MEQ ERTAB PO PRN (19:30)
[2020-09-19] MEDS: ONDANSETRON HCL 4 MG/2 ML VIAL IV PRN (21:44)
[2020-09-20] VITALS (7 sets, daily range): BP systolic 126–144; BP diastolic 70–91
[2020-09-20] MEDS: HYDROMORPHONE 1 MG/1 ML AMP IVP PRN ×4 (02:05→14:11)
[2020-09-20 05:22] LABS: BASOPHILS % (AUTO) 0.5 % (0.0-5.0); EOSINOPHILS % (AUTO) 0.9 % (0.0-8.0); HEMATOCRIT 28.5 % (42-54); LYMPHOCYTES % (AUTO) 26.9 % (21.0-51.0); MEAN CORPUSCULAR HGB CONC 33.7 g/dL (32.0-36.0); MEAN CORPUSCULAR VOLUME 89.1 fL (79-99); MONOCYTES % (AUTO) 4.4 % (3.0-13.0); NEUTROPHILS % (AUTO) 66.8 % (40.0-77.0); PLATELET COUNT (AUTO) 386 K/uL (130-400); RED CELL DISTRIBUTION WIDTH 12.6 % (11.0-15.5); WHITE BLOOD COUNT (AUTO) 5.7 K/uL (4.8-10.8)
[2020-09-20 05:44] LABS: CREATININE 0.7 mg/dL (0.5-1.5); POTASSIUM 3.7 mmol/L (3.5-5.1)
[2020-09-20] MEDS: VANCOMYCIN 1GM+NS 250ML 250 ML IV SCH ×3 (06:00→17:50)
[2020-09-20] MEDS: CEFTRIAXONE SODIUM 1 GM IVP SCH ×2 (06:05→17:50)
[2020-09-20] MEDS: ONDANSETRON HCL 4 MG/2 ML VIAL IV PRN ×2 (06:19→14:11)
[2020-09-20] MEDS ORDERED: INSULIN LISPRO 100 UNIT/ML 3ML SQ SCH (07:30)
[2020-09-20] MEDS: ACETAMINOPHEN EXTRA STRENGTH 500 MG TABLET PO SCH ×2 (07:30→15:30)
[2020-09-20] MEDS: SODIUM CHLORIDE 0.9% 1000ML 1,000 ML IV SCH ×2 (07:46→14:16)
[2020-09-20] MEDS: INSULIN HUMULIN R 100 UNIT/ML 3ML SQ SCH ×6 (07:47→21:00)
[2020-09-20] MEDS ORDERED: POLYETHYLENE GLYCOL 3350 17 GM POWD.PACK PO SCH (09:00)
[2020-09-20] MEDS: INSULIN GLARGINE 100 UNITS/ML 10 ML VIAL SQ SCH (09:26)
[2020-09-20] MEDS: FAMOTIDINE/PF 20 MG/2 ML VIAL IV SCH (10:07)
--- NOTE | 2020-09-20 11:20 | NUR ---
I HAVE REPORTED TO DR OKEEFE THAT PT WAS NOTED TO HAVE GREEN DRAINAGE COMING OUT OF PENIS, AND THAT PT IS ON VANCO; HE STATED TO CONT VANCO AND COLLECT A URINALYSIS.
[2020-09-20] MEDS ORDERED: PSYLLIUM SEED 1 EACH PACKET PO SCH (12:00)
[2020-09-20] MEDS ORDERED: VANCOMYCIN 1.25 GM in SODIUM CHLORIDE 0.9% 250 ML IV SCH (12:00)
--- NOTE | 2020-09-20 12:23 | NUR ---
PICTURE TAKEN OF SKIN TEAR ON RIGHT GROIN/ GLUTEAL FOLD AREA; IT MEASURES 2CM BY 2CM ; ALLEVYN DRESSNG APPLIED.
[2020-09-20 14:03] LABS: APPEARANCE,URINE Clear (CLEAR); BILIRUBIN,URINE Negative (NEGATIVE); COLOR,URINE Yellow (YELLOW); GLUCOSE, URINE (UA) >=1000 mg/dL (NEGATIVE); KETONES,URINE Negative (NEGATIVE); LEUKOCYTE ESTERASE ,URINE Negative (NEGATIVE); NITRATE,URINE Negative (NEGATIVE); OCCULT BLOOD,URINE Small (NEGATIVE); PH,URINE 5.5 (5.0-8.0); PROTEIN,URINE 300 mg/dL (NEGATIVE); UROBILINOGEN,URINE 0.2 mg/dL (0.2-1.0)
--- NOTE | 2020-09-20 14:10 | NUR ---
Pt reports that he sleeps keeley mattress onthe floor at home and therefore is a total assist to get to a that is old/loaner . Pt needs assist for all ADL. Pt does not have a working prosthetic, a kiara, a slideboard or a BSC. Pt reports that he has [place] issues obtaining insurance coverage of any sort. Pt will be an unsafe DC home if the above conditions are indeed true. Pt will likelybe readmitted for fall or skinbreak down . this patient needs community assistance programs and or assist to apply for some type of insurance program. Addendum: 09/20/20 at 1413 by LAMONTE SELBY PT PT Amended: Links added.
[2020-09-20 14:25] LABS: BACTERIA,URINE Rare /HPF (None Seen)
[2020-09-20] MEDS ORDERED: HYDROCODONE/ACETAMINOPHEN 5/325 MG TAB PO PRN (17:45)
[2020-09-20] MEDS ORDERED: FLUCONAZOLE 400 MG/NS 200 ML 200 ML IV SCH (18:00)
[2020-09-20] MEDS: HYDROCODONE/ACETAMINOPHEN 5/325 MG TAB PO PRN ×2 (18:00→23:46)
--- NOTE | 2020-09-20 19:20 | NUR ---
PM Assessment Received pt watching TV in bed, routine assessment done, plan of care discuss, currently denies discomfort. Pt reminded to be extra careful with his IV access as it's located to his right external jugular area, agreed.
[2020-09-20] MEDS: TERBINAFINE HCL 15 GM TUBE TP SCH (21:31)
[2020-09-20] MEDS: FAMOTIDINE 20MG TAB 20 MG TAB PO SCH (21:31)
--- NOTE | 2020-09-20 23:45 | NUR ---
Re: Pain medication Pt called crying stating he wants his Dilaudid as I offered Craig 2tabs for pain scale 10/10. Initially refused but after I did explained that we are trying to wean him off the Dilaudid as Craig possibly will be the pain medication he will be going home & that he need to try to take it 24-48 hours & see how it would help with his pain issue, agreed.
--- NOTE | 2020-09-21 03:30 | NUR ---
Received patient via bed, breath sounds clear, vital signs within normal limits, abdomen round soft, bowel sounds hyperactive. According to patient has been having loose stools since antibiotic were started. Dressing to left residuel limb dry and intact, Rajan intact draining serosanginous drainage. Patient denies any discomfort at this time. Encouraged to call as needed. IJ insertion site intact, in place.
--- NOTE | 2020-09-21 03:30 | NUR ---
Re: Transfer Pt transferred to [id number], I will notify family at 0700, report given to Katiuska GARCIA.
[2020-09-21 03:51] VITALS: BP 135/80
--- NOTE | 2020-09-21 05:19 | NUR ---
Patient groins, and testicles with excoriation from the loose stools patient is having, fungel cream and barrier placed in use after incontinent care rendered.
[2020-09-21 05:54] LABS: BASOPHILS % (AUTO) 0.5 % (0.0-5.0); EOSINOPHILS % (AUTO) 3.1 % (0.0-8.0); HEMATOCRIT 25.9 % (42-54); LYMPHOCYTES % (AUTO) 18.9 % (21.0-51.0); MEAN CORPUSCULAR HEMOGLOBIN 29.5 pg (27.0-33.0); MEAN CORPUSCULAR HGB CONC 32.8 g/dL (32.0-36.0); MEAN CORPUSCULAR VOLUME 89.9 fL (79-99); MONOCYTES % (AUTO) 3.3 % (3.0-13.0); PLATELET COUNT (AUTO) 316 K/uL (130-400); RED BLOOD CELL COUNT(AUTO) 2.88 MIL/uL (4.50-6.20); RED CELL DISTRIBUTION WIDTH 12.9 % (11.0-15.5); WHITE BLOOD COUNT (AUTO) 5.5 K/uL (4.8-10.8)
[2020-09-21] MEDS: VANCOMYCIN 1GM+NS 250ML 250 ML IV SCH ×2 (06:14→17:49)
[2020-09-21] MEDS: CEFTRIAXONE SODIUM 1 GM IVP SCH ×2 (06:14→17:49)
[2020-09-21 06:15] LABS: CARBON DIOXIDE 22 mmol/L (21-32); CHLORIDE 109 mmol/L (101-111); CREATININE 0.6 mg/dL (0.5-1.5); GLOMERULAR FILTR. RATE CALC 154 mL/min (>60); GLUCOSE,RANDOM 151 mg/dL (70-105); POTASSIUM 3.8 mmol/L (3.5-5.1); SODIUM SERUM 136 mmol/L (136-145); UREA NITROGEN, BLOOD 8 mg/dL (7-18)
[2020-09-21] MEDS: INSULIN HUMULIN R 100 UNIT/ML 3ML SQ SCH ×7 (06:18→20:31)
[2020-09-21 07:13] LABS: ERYTHROCYTE SEDIMENTATION RATE 70 MM/HR (0-15)
[2020-09-21] MEDS: LUBIPROSTONE 24 MCG CAP PO SCH ×2 (08:00→17:00)
[2020-09-21 08:02] VITALS: BP 130/83
[2020-09-21 11:42] VITALS: BP 135/85
[2020-09-21] MEDS: FAMOTIDINE 20MG TAB 20 MG TAB PO SCH ×2 (11:56→20:18)
[2020-09-21] MEDS: FLUCONAZOLE 200 MG/NS 100 ML 100 ML IV SCH (11:57)
[2020-09-21] MEDS: INSULIN GLARGINE 100 UNITS/ML 10 ML VIAL SQ SCH (12:02)
[2020-09-21] MEDS: TERBINAFINE HCL 15 GM TUBE TP SCH ×2 (12:06→21:57)
[2020-09-21] MEDS ORDERED: KETOROLAC TROMETHAMINE 15MG/ML IV SCH (13:00)
[2020-09-21] MEDS ORDERED: KETOROLAC TROMETHAMINE 30MG/ML IV SCH (13:30)
[2020-09-21] MEDS ORDERED: MORPHINE SULFATE 2 MG/ML 1ML SYG ONE (14:06)
[2020-09-21] MEDS: HYDROCODONE/ACETAMINOPHEN 5/325 MG TAB PO PRN (14:56)
[2020-09-21] MEDS ORDERED: BISACODYL 5 MG TABLET.DR PO PRN (15:30)
[2020-09-21 16:00] VITALS: BP 161/95
[2020-09-21] MEDS: ONDANSETRON HCL 4 MG/2 ML VIAL IV PRN (18:00)
[2020-09-21] MEDS: POTASSIUM CHLORIDE 20 MEQ ERTAB PO PRN (20:18)
[2020-09-21] MEDS: MORPHINE SULFATE 2 MG/ML 1ML SYG IVP PRN (20:26)
[2020-09-21 20:46] VITALS: BP 144/88
[2020-09-22 00:22] VITALS: BP 133/81
[2020-09-22] MEDS: POTASSIUM CHLORIDE 20 MEQ ERTAB PO PRN (01:26)
[2020-09-22] MEDS: ONDANSETRON HCL 4 MG/2 ML VIAL IV PRN (02:07)
[2020-09-22] MEDS: MORPHINE SULFATE 2 MG/ML 1ML SYG IVP PRN (02:07)
[2020-09-22 03:46] VITALS: BP 146/88
[2020-09-22] MEDS: HYDROCODONE/ACETAMINOPHEN 5/325 MG TAB PO PRN (05:19)
[2020-09-22] MEDS: CEFTRIAXONE SODIUM 1 GM IVP SCH (05:19)
[2020-09-22 05:26] LABS: BASOPHILS % (AUTO) 0.5 % (0.0-5.0); EOSINOPHILS % (AUTO) 3.5 % (0.0-8.0); HEMATOCRIT 26.5 % (42-54); LYMPHOCYTES % (AUTO) 41.6 % (21.0-51.0); MEAN CORPUSCULAR HEMOGLOBIN 29.6 pg (27.0-33.0); MEAN CORPUSCULAR HGB CONC 33.6 g/dL (32.0-36.0); MONOCYTES % (AUTO) 3.8 % (3.0-13.0); NEUTROPHILS % (AUTO) 50.3 % (40.0-77.0); PLATELET COUNT (AUTO) 356 K/uL (130-400); RED BLOOD CELL COUNT(AUTO) 3.01 MIL/uL (4.50-6.20); RED CELL DISTRIBUTION WIDTH 12.4 % (11.0-15.5); WHITE BLOOD COUNT (AUTO) 3.7 K/uL (4.8-10.8)
[2020-09-22 05:46] LABS: CREATININE 0.7 mg/dL (0.5-1.5)
[2020-09-22] MEDS: VANCOMYCIN 1GM+NS 250ML 250 ML IV SCH (06:14)
[2020-09-22] MEDS: INSULIN HUMULIN R 100 UNIT/ML 3ML SQ SCH ×2 (06:18→06:28)
[2020-09-22] MEDS: LUBIPROSTONE 24 MCG CAP PO SCH (08:00)
[2020-09-22 08:37] VITALS: BP 136/91
[2020-09-22] MEDS: FLUCONAZOLE 200 MG/NS 100 ML 100 ML IV SCH (09:00)
[2020-09-22] MEDS: TERBINAFINE HCL 15 GM TUBE TP SCH (09:00)
--- NOTE | 2020-09-22 10:00 | NUR ---
DR. GARCIA PAGED WAITING SALESPERSON FLYING SQUAD BACK
[2020-09-22] MEDS: INSULIN GLARGINE 100 UNITS/ML 10 ML VIAL SQ SCH (10:07)
[2020-09-22] MEDS: FAMOTIDINE 20MG TAB 20 MG TAB PO SCH (10:08)
--- NOTE | 2020-09-22 10:26 | NUR ---
D/C PT WANTED TO LEAVE DR. JOSEPH D/C PATIENT AND SEND ANTIBIOTIC TO PT RX [place].
--- NOTE | 2020-09-22 10:29 | NUR ---
D/C PT WANTED TO LEAVE AMA, HOWEVER, DR JOSEPH REVIEWED HIS CHARTED STATED HE CAN BE D/C. PT DID NOT WANT TO WAIT FOR D/C PAPERS SO, THEY WILL BE PUT IN HIS CHART. DR. GARCIA BEING PAGED TO NOTIFY HIM OF PT D/C. PT LEFT VIA WHEELCHAIR IN PVT CAR, [id number],VS STABLE
[2020-09-22] MEDS ORDERED: BISACODYL 10 MG SUPP.RECT RC PRN (15:30)
--- NOTE | 2020-09-23 10:48 | NUR ---
TRANSITIONAL CARE - POST-DISCHARGE NOTE NO ANSWER. I called number on file. Mailbox has not been set up. Unable to leave message.
== END 2020-09-22 10:30 | disposition home or self-care (01) | DRG 637 ==
LOC: EDH 16:21 → EDHIP 16:22 → 4CH 09-18 13:07 → 3DH 09-21 03:38
PROVIDERS: ADMIT Internal Medicine; ATTEND Internal Medicine
PROC: 0M9P3ZZ Drainage of Left Knee Bursa and Ligament, Percutaneous Approach (ICD-10-PCS; principal; 2020-09-19 14:08)
DX: E11.10 Type 2 diabetes mellitus with ketoacidosis without coma (principal); K85.90 Acute pancreatitis without necrosis or infection, unspecified; E87.1 Hypo-osmolality and hyponatremia; K86.1 Other chronic pancreatitis; L03.116 Cellulitis of left lower limb; E46 Unspecified protein-calorie malnutrition; N17.9 Acute kidney failure, unspecified; B35.6 Tinea cruris; E87.6 Hypokalemia; D64.9 Anemia, unspecified; M70.42 Prepatellar bursitis, left knee; B95.61 Methicillin susceptible Staphylococcus aureus infection as the cause of diseases classified elsewhere; Z68.24 Body mass index [BMI] 24.0-24.9, adult; E86.0 Dehydration; E78.5 Hyperlipidemia, unspecified; E11.621 Type 2 diabetes mellitus with foot ulcer; L97.509 Non-pressure chronic ulcer of other part of unspecified foot with unspecified severity; I10 Essential (primary) hypertension; F12.90 Cannabis use, unspecified, uncomplicated; Z83.3 Family history of diabetes mellitus; Z82.3 Family history of stroke; J44.9 Chronic obstructive pulmonary disease, unspecified; Z79.4 Long term (current) use of insulin; Z89.511 Acquired absence of right leg below knee; Z89.512 Acquired absence of left leg below knee; Z90.49 Acquired absence of other specified parts of digestive tract; E11.51 Type 2 diabetes mellitus with diabetic peripheral angiopathy without gangrene; Z91.19 Patient's noncompliance with other medical treatment and regimen
CPT/HCPCS: 36415; 36600; 71045; 73562; 73700; 74176; 76882; 80048; 80053; 80061; 80202; 81001; 82150; 82550; 82803; 82948; 83036; 83690; 84145; 85025; 85651; 86140; 87070; 87076; 87077; 87186; 87205; 97039; 99291; G0378; J0330; J0696; J1170; J1450; J1815; J1885; J2001; J2250; J2270; J2405; J2704; J2710; J3010; J3370; J3490; J7030; J7040; J7050

== ENCOUNTER 2020-10-02 15:34 | Inpatient (IN) | payer OTHER ==
[~2020-10-02] VITALS: Ht 170.2 cm; Wt 69.3 kg
[2020-10-02 16:17] LABS: BASOPHILS % (AUTO) 0.2 % (0.0-5.0); EOSINOPHILS % (AUTO) 0.5 % (0.0-8.0); HEMATOCRIT 31.2 % (42-54); LYMPHOCYTES % (AUTO) 22.7 % (21.0-51.0); MEAN CORPUSCULAR HEMOGLOBIN 29.6 pg (27.0-33.0); MEAN CORPUSCULAR HGB CONC 31.7 g/dL (32.0-36.0); MEAN CORPUSCULAR VOLUME 93.4 fL (79-99); MONOCYTES % (AUTO) 2.2 % (3.0-13.0); NEUTROPHILS % (AUTO) 73.9 % (40.0-77.0); PLATELET COUNT (AUTO) 314 K/uL (130-400); RED BLOOD CELL COUNT(AUTO) 3.34 MIL/uL (4.50-6.20); RED CELL DISTRIBUTION WIDTH 13.3 % (11.0-15.5); WHITE BLOOD COUNT (AUTO) 4.1 K/uL (4.8-10.8)
[2020-10-02 16:31] LABS: INR 0.94 (0.85-1.15); PROTHROMBIN TIME 10.1 SEC (9.6-11.6)
[2020-10-02 16:32] LABS: CREATININE 1.2 mg/dL (0.5-1.5); POTASSIUM 3.7 mmol/L (3.5-5.1)
[2020-10-02 16:34] LABS: ALBUMIN 1.8 g/dL (3.5-5.0); BILIRUBIN,TOTAL 0.1 mg/dL (0.2-1.0); TOTAL PROTEIN, SERUM 5.5 g/dL (6.0-8.3)
[2020-10-02 16:37] LABS: BASE EXCESS,VENOUS BLOOD GAS -4.2 (-2.0-3.0); HCO3,VENOUS BLOOD GAS 21.7 (21.0-28.0); PCO2,VENOUS BLOOD GAS 43 (35-48); PH,VENOUS BLOOD GAS 7.322 (7.350-7.450)
[2020-10-02] MEDS ORDERED: MORPHINE SULFATE 4 MG/1ML SYG ONE (16:47)
[2020-10-02] MEDS ORDERED: ONDANSETRON HCL 4 MG/2 ML VIAL ONE (16:47)
[2020-10-02] MEDS ORDERED: SODIUM CHLORIDE 0.9% 1000ML 1,000 ML IV ONE (16:48)
[2020-10-02] MEDS ORDERED: GLUCAGON 1MG KIT 1 MG ML IM PRN (19:30)
[2020-10-02] MEDS ORDERED: SODIUM CHLORIDE 0.9% 1000ML 1,000 ML IV SCH ×2 (19:30)
[2020-10-02] MEDS ORDERED: INSULIN REGULAR, HUMAN 3ML 100 UNIT in SODIUM CHLORIDE 0.9% 99 ML IV PRN ×2 (19:30)
[2020-10-02] MEDS ORDERED: DEXTROSE 5 %-0.45 % NACL 1,000 ML IV PRN (19:30)
[2020-10-02] MEDS ORDERED: LACTULOSE 20 GM/30 ML UDCUP PO PRN (19:30)
[2020-10-02] MEDS: SODIUM CHLORIDE 0.9% 1000ML 1,000 ML IV SCH (19:30)
[2020-10-02] MEDS ORDERED: ACETAMINOPHEN 325 MG TAB PO PRN ×2 (19:30)
[2020-10-02] MEDS ORDERED: POTASSIUM CHLORIDE 10MEQ/100ML 100 ML IV PRN (19:30)
[2020-10-02] MEDS ORDERED: DEXTROSE 50%-WATER 50 ML DISP.SYRIN IV PRN (19:30)
[2020-10-02] MEDS ORDERED: MORPHINE SULFATE 2 MG/ML 1ML SYG ONE (19:47)
[2020-10-02] MEDS: FAMOTIDINE/PF 20 MG/2 ML VIAL IV SCH (21:00)
[2020-10-03] MEDS ORDERED: MORPHINE SULFATE 2 MG/ML 1ML SYG ONE ×5 (00:28→21:52)
[2020-10-03] MEDS: SODIUM CHLORIDE 0.9% 1000ML 1,000 ML IV SCH ×5 (00:30→20:30)
[2020-10-03] MEDS ORDERED: ONDANSETRON HCL 4 MG/2 ML VIAL ONE ×2 (02:14→06:47)
[2020-10-03] MEDS ORDERED: INSULIN REGULAR, HUMAN 3ML 100 UNIT in SODIUM CHLORIDE 0.9% 99 ML IV SCH ×2 (02:30)
[2020-10-03 05:21] LABS: BASOPHILS % (AUTO) 0.5 % (0.0-5.0); HEMATOCRIT 24.8 % (42-54); LYMPHOCYTES % (AUTO) 48.4 % (21.0-51.0); MEAN CORPUSCULAR HEMOGLOBIN 29.3 pg (27.0-33.0); MEAN CORPUSCULAR HGB CONC 33.1 g/dL (32.0-36.0); MEAN CORPUSCULAR VOLUME 88.6 fL (79-99); MONOCYTES % (AUTO) 4.5 % (3.0-13.0); NEUTROPHILS % (AUTO) 43.4 % (40.0-77.0); PLATELET COUNT (AUTO) 270 K/uL (130-400); RED CELL DISTRIBUTION WIDTH 12.7 % (11.0-15.5)
[2020-10-03 05:57] LABS: CREATININE 0.7 mg/dL (0.5-1.5)
[2020-10-03] MEDS ORDERED: POTASSIUM CHLORIDE 10MEQ/100ML 100 ML IV ONE ×2 (06:33→07:41)
[2020-10-03] MEDS: FAMOTIDINE/PF 20 MG/2 ML VIAL IV SCH ×2 (09:00→21:00)
[2020-10-03] MEDS ORDERED: FAMOTIDINE/PF 20 MG/2 ML VIAL IV ONE ×2 (09:49→23:00)
[2020-10-03 13:17] LABS: CHOLESTEROL 93 mg/dL (<200); HDL CHOLESTEROL 81 mg/dL (29-71); LDL DIRECT 35 mg/dL (0-99); TRIGLYCERIDES 47 mg/dL (30-200)
[2020-10-03] MEDS ORDERED: DEXTROSE 50%-WATER 50 ML DISP.SYRIN IV PRN (13:30)
[2020-10-03] MEDS ORDERED: GLUCAGON 1MG KIT 1 MG ML IM PRN (13:30)
[2020-10-03] MEDS ORDERED: IOHEXOL-350 75 ML VIAL IV ONE (15:50)
[2020-10-03] MEDS: INSULIN HUMULIN R 100 UNIT/ML 3ML SQ SCH ×2 (16:30→21:00)
--- NOTE | 2020-10-03 16:50 | NUR ---
DC PLAN NO ANSWER. PHONE LISTED IS FOR STATES CLINICAL RESEARCH Addendum: 10/03/20 at 1651 by CASIE DORADO RN CM Amended: Links added.
[2020-10-03 23:24] VITALS: BP 130/76
[2020-10-04] MEDS: POTASSIUM CHLORIDE 20MEQ/100ML 100 ML IV PRN ×2 (00:13→02:43)
[2020-10-04] MEDS: LIDOCAINE HCL-MPF 1% 2ML VIAL IV PRN ×2 (00:13→02:43)
[2020-10-04] MEDS: SODIUM CHLORIDE 0.9% 1000ML 1,000 ML IV SCH (00:14)
[2020-10-04] MEDS: ONDANSETRON HCL 4 MG/2 ML VIAL IV PRN ×4 (02:06→21:51)
[2020-10-04] MEDS: MORPHINE SULFATE 2 MG/ML 1ML SYG IV PRN ×5 (02:07→21:51)
[2020-10-04 05:15] VITALS: BP 143/88
[2020-10-04 05:26] LABS: BASOPHILS % (AUTO) 0.7 % (0.0-5.0); EOSINOPHILS % (AUTO) 2.4 % (0.0-8.0); LYMPHOCYTES % (AUTO) 38.3 % (21.0-51.0); MEAN CORPUSCULAR HEMOGLOBIN 30.1 pg (27.0-33.0); MEAN CORPUSCULAR HGB CONC 34.2 g/dL (32.0-36.0); MEAN CORPUSCULAR VOLUME 87.8 fL (79-99); MONOCYTES % (AUTO) 2.7 % (3.0-13.0); NEUTROPHILS % (AUTO) 55.7 % (40.0-77.0); PLATELET COUNT (AUTO) 274 K/uL (130-400); RED BLOOD CELL COUNT(AUTO) 2.96 MIL/uL (4.50-6.20); RED CELL DISTRIBUTION WIDTH 13.2 % (11.0-15.5); WHITE BLOOD COUNT (AUTO) 4.1 K/uL (4.8-10.8)
[2020-10-04 05:57] LABS: CREATININE 0.6 mg/dL (0.5-1.5); MAGNESIUM 1.6 mg/dL (1.80-2.40); POTASSIUM 3.6 mmol/L (3.5-5.1)
[2020-10-04] MEDS ORDERED: INSULIN HUMULIN R 100 UNIT/ML 3ML SQ SCH (06:00)
[2020-10-04 08:56] VITALS: BP 129/82
[2020-10-04] MEDS: FAMOTIDINE/PF 20 MG/2 ML VIAL IV SCH ×2 (09:13→20:30)
[2020-10-04] MEDS: INSULIN GLARGINE 100 UNITS/ML 10 ML VIAL SQ SCH ×2 (11:06→20:37)
[2020-10-04] MEDS: INSULIN LISPRO 100 UNIT/ML 3ML SQ SCH ×2 (11:08→17:10)
[2020-10-04 12:10] VITALS: BP 145/91
[2020-10-04] MEDS: MAGNESIUM 2GM PREMIX 50ML 50 ML IV PRN (14:20)
[2020-10-04] MEDS: CEPHALEXIN 500 MG CAPSULE PO SCH ×2 (14:21→20:30)
--- NOTE | 2020-10-04 16:06 | NUR ---
INITIAL SW spoke with patient. He states he lives with his father and brother. No home services. DME: wheelchair. Patient reports he is able to complete ADL's and drives. Patient does not work. PCP is Dr. Braxton Spears at [facility]. Pharmacy is [facility]. DCP is home. Patient has no insurance or benefits. He is not a [place] citizen or legal resident. Patient was provided with community resources for post hospitalization follow up. Patient was also provided with Good RX card for prescriptions and educated on [employer] $4 medication program and [employer] $5 medication program. Patient is being assisted by [employer] for financial matters. Addendum: 10/04/20 at 1608 by SURESH PARK Amended: Links added.
[2020-10-04 17:21] VITALS: BP 138/88
[2020-10-04 20:01] VITALS: BP 133/77
[2020-10-04 23:41] VITALS: BP 130/77
[2020-10-05] MEDS: MORPHINE SULFATE 2 MG/ML 1ML SYG IV PRN ×6 (02:07→23:04)
[2020-10-05 03:41] VITALS: BP 136/78
[2020-10-05] MEDS: CEPHALEXIN 500 MG CAPSULE PO SCH ×3 (04:42→19:52)
[2020-10-05] MEDS: INSULIN LISPRO 100 UNIT/ML 3ML SQ SCH ×3 (05:46→16:46)
[2020-10-05 05:49] LABS: EOSINOPHILS % (AUTO) 2.6 % (0.0-8.0); HEMATOCRIT 24.7 % (42-54); LYMPHOCYTES % (AUTO) 38.3 % (21.0-51.0); MEAN CORPUSCULAR HEMOGLOBIN 29.3 pg (27.0-33.0); MEAN CORPUSCULAR HGB CONC 33.6 g/dL (32.0-36.0); MEAN CORPUSCULAR VOLUME 87.3 fL (79-99); MONOCYTES % (AUTO) 3.9 % (3.0-13.0); NEUTROPHILS % (AUTO) 53.9 % (40.0-77.0); PLATELET COUNT (AUTO) 261 K/uL (130-400); RED BLOOD CELL COUNT(AUTO) 2.83 MIL/uL (4.50-6.20); RED CELL DISTRIBUTION WIDTH 13.1 % (11.0-15.5); WHITE BLOOD COUNT (AUTO) 3.8 K/uL (4.8-10.8)
[2020-10-05] MEDS: ONDANSETRON HCL 4 MG/2 ML VIAL IV PRN ×4 (05:58→18:43)
[2020-10-05 06:52] LABS: ALANINE AMINOTRANSFERASE 42 U/L (12-78); ALBUMIN 1.3 g/dL (3.5-5.0); ASPARTATE AMINOTRANSFERASE 45 U/L (10-37); BILIRUBIN,TOTAL 0.1 mg/dL (0.2-1.0); CARBON DIOXIDE 25 mmol/L (21-32); CHLORIDE 105 mmol/L (101-111); CREATININE 0.8 mg/dL (0.5-1.5); GLOMERULAR FILTR. RATE CALC 111 mL/min (>60); GLUCOSE,RANDOM 178 mg/dL (70-105); POTASSIUM 3.7 mmol/L (3.5-5.1); SODIUM SERUM 136 mmol/L (136-145); TOTAL PROTEIN, SERUM 4.5 g/dL (6.0-8.3); UREA NITROGEN, BLOOD 7 mg/dL (7-18)
[2020-10-05 08:00] VITALS: BP 124/77
[2020-10-05] MEDS: FAMOTIDINE/PF 20 MG/2 ML VIAL IV SCH ×2 (08:49→19:52)
[2020-10-05 12:00] VITALS: BP 127/81
[2020-10-05] MEDS: MAGNESIUM 2GM PREMIX 50ML 50 ML IV PRN (13:01)
--- NOTE | 2020-10-05 15:22 | NUR ---
Order in chart from Dr. Wray to remove kelechi to left knee incision and place steri-strips. Procedure explained to pt, pt was premedicated with PRN morphine by primary nurse Yayo. Removed total of 9 kelechi without incident, pt voiced no discomforts. Scant bleeding to scab where drain had previously been. Incision skin edges well approximated on own, painted w/ betadine, steri strips were applied to provide support while continuing to heal. Bed in low position, bedside table and call light in easy reach.
[2020-10-05 16:00] VITALS: BP 141/79
[2020-10-05] MEDS: INSULIN GLARGINE 100 UNITS/ML 10 ML VIAL SQ SCH (19:57)
[2020-10-05 20:09] VITALS: BP 138/84
[2020-10-06 00:57] VITALS: BP 142/79
[2020-10-06] MEDS: ONDANSETRON HCL 4 MG/2 ML VIAL IV PRN ×2 (03:22→16:13)
[2020-10-06] MEDS: CEPHALEXIN 500 MG CAPSULE PO SCH ×3 (03:22→19:58)
[2020-10-06] MEDS: MORPHINE SULFATE 2 MG/ML 1ML SYG IV PRN ×5 (03:23→19:58)
[2020-10-06 04:01] VITALS: BP 138/82
[2020-10-06] MEDS: INSULIN LISPRO 100 UNIT/ML 3ML SQ SCH ×3 (05:34→17:00)
[2020-10-06 07:57] VITALS: BP 113/75
[2020-10-06 11:42] VITALS: BP 137/81
[2020-10-06] MEDS: FAMOTIDINE/PF 20 MG/2 ML VIAL IV SCH ×2 (11:50→19:57)
[2020-10-06] MEDS: MAGNESIUM 2GM PREMIX 50ML 50 ML IV PRN (15:11)
[2020-10-06] MEDS: LIDOCAINE HCL-MPF 1% 2ML VIAL IV PRN (17:21)
[2020-10-06] MEDS ORDERED: SODIUM CHLORIDE 0.9% 1000ML 1,000 ML IV ONE (17:23)
[2020-10-06 19:04] VITALS: BP 131/81
[2020-10-06 20:00] VITALS: BP_SYST 85
[2020-10-06] MEDS: LIPASE/PROTEASE/AMYLASE 5000/17000/24000 PO SCH (20:04)
[2020-10-06] MEDS: INSULIN GLARGINE 100 UNITS/ML 10 ML VIAL SQ SCH (20:05)
[2020-10-07] VITALS: BP 124/76
[2020-10-07 04:00] VITALS: BP 146/88
[2020-10-07] MEDS: CEPHALEXIN 500 MG CAPSULE PO SCH ×2 (04:06→12:15)
[2020-10-07] MEDS: MORPHINE SULFATE 2 MG/ML 1ML SYG IV PRN ×4 (04:06→12:20)
[2020-10-07 05:26] LABS: BASOPHILS % (AUTO) 0.8 % (0.0-5.0); EOSINOPHILS % (AUTO) 4.4 % (0.0-8.0); HEMATOCRIT 24.6 % (42-54); LYMPHOCYTES % (AUTO) 35.8 % (21.0-51.0); MEAN CORPUSCULAR HEMOGLOBIN 29.3 pg (27.0-33.0); MEAN CORPUSCULAR HGB CONC 33.3 g/dL (32.0-36.0); MEAN CORPUSCULAR VOLUME 87.9 fL (79-99); MONOCYTES % (AUTO) 3.8 % (3.0-13.0); NEUTROPHILS % (AUTO) 55.2 % (40.0-77.0); PLATELET COUNT (AUTO) 229 K/uL (130-400); RED CELL DISTRIBUTION WIDTH 13.6 % (11.0-15.5); WHITE BLOOD COUNT (AUTO) 3.7 K/uL (4.8-10.8)
[2020-10-07] MEDS: INSULIN LISPRO 100 UNIT/ML 3ML SQ SCH ×2 (05:54→11:30)
[2020-10-07 06:00] LABS: CREATININE 0.7 mg/dL (0.5-1.5); MAGNESIUM 2.1 mg/dL (1.80-2.40); POTASSIUM 4.4 mmol/L (3.5-5.1)
[2020-10-07 07:54] VITALS: BP 147/87
[2020-10-07] MEDS: FAMOTIDINE/PF 20 MG/2 ML VIAL IV SCH (08:23)
[2020-10-07] MEDS: ONDANSETRON HCL 4 MG/2 ML VIAL IV PRN ×2 (08:24)
[2020-10-07] MEDS: LIPASE/PROTEASE/AMYLASE 5000/17000/24000 PO SCH (09:00)
[2020-10-07 11:29] VITALS: BP 141/80
--- NOTE | 2020-10-07 12:10 | NUR ---
1210 CUTTER MACHINE nurse case management called to let me know there is no assistance available for transfer to home for a patient without insurance she told me to call char house supervisor to ask if they can set up transfer via taxi or bus ,called char house supervisor ,no assistance available pt states he has a ride home but will need to have all paperwork ready in 15 minutes , explained to pt ,would do the best we can with that request states then give me the paper to sign so I can leave . notified Dr Henderson of pt s request ,state he is in ER seeing a pt but would put discharge orders SAW pt signed AMA paper ,requested transfer to ER, ask pt if ride was outside pt said no he would wait there pt called several times asking to transfer to ER called Sou[facility] char house supervisor told him about situation ok for pt to transfer to ER
== END 2020-10-07 14:20 | disposition left against medical advice (07) | DRG 637 ==
LOC: EDH 15:34 → EDHIP 15:35 → 3DH 10-03 23:25
PROVIDERS: ADMIT Internal Medicine; ATTEND Internal Medicine
DX: E11.00 Type 2 diabetes mellitus with hyperosmolarity without nonketotic hyperglycemic-hyperosmolar coma (NKHHC) (principal); K85.90 Acute pancreatitis without necrosis or infection, unspecified; K86.1 Other chronic pancreatitis; E87.1 Hypo-osmolality and hyponatremia; R18.8 Other ascites; E87.6 Hypokalemia; E11.65 Type 2 diabetes mellitus with hyperglycemia; E83.42 Hypomagnesemia; E78.5 Hyperlipidemia, unspecified; E11.51 Type 2 diabetes mellitus with diabetic peripheral angiopathy without gangrene; Z91.14 Patient's other noncompliance with medication regimen; Z91.19 Patient's noncompliance with other medical treatment and regimen; Z89.512 Acquired absence of left leg below knee; Z89.511 Acquired absence of right leg below knee; Z88.8 Allergy status to other drugs, medicaments and biological substances; Z82.3 Family history of stroke; Z83.3 Family history of diabetes mellitus; Z82.49 Family history of ischemic heart disease and other diseases of the circulatory system
CPT/HCPCS: 36415; 36600; 73562; 74018; 74176; 80048; 80053; 80061; 82010; 82550; 82803; 82947; 82948; 83036; 83605; 83690; 83735; 84132; 84145; 84484; 85025; 85610; 85730; 87040; 87324; 87507; 93005; 93971; 99291; G0378; J2270; J2405; J3475; J3480; J3490; J7030; Q9967

== ENCOUNTER 2020-10-08 23:41 | Inpatient (IN) | payer OTHER ==
[~2020-10-08] VITALS: Ht 170.2 cm; Wt 63.0 kg
[2020-10-09 00:29] LABS: ALBUMIN 1.9 g/dL (3.5-5.0); BILIRUBIN,TOTAL 0.1 mg/dL (0.2-1.0); CREATININE 1.1 mg/dL (0.5-1.5); POTASSIUM 4.8 mmol/L (3.5-5.1); TOTAL PROTEIN, SERUM 5.6 g/dL (6.0-8.3)
[2020-10-09] MEDS ORDERED: SODIUM CHLORIDE 0.9% 1000ML 1,000 ML IV ONE (00:36)
[2020-10-09] MEDS ORDERED: ONDANSETRON HCL 4 MG/2 ML VIAL ONE (00:36)
[2020-10-09] MEDS ORDERED: MORPHINE SULFATE 4 MG/1ML SYG ONE (00:37)
[2020-10-09 00:40] LABS: BASOPHILS % (AUTO) 0.6 % (0.0-5.0); EOSINOPHILS % (AUTO) 1.3 % (0.0-8.0); HEMATOCRIT 25.1 % (42-54); LYMPHOCYTES % (AUTO) 28.1 % (21.0-51.0); MEAN CORPUSCULAR HEMOGLOBIN 29.9 pg (27.0-33.0); MEAN CORPUSCULAR HGB CONC 32.7 g/dL (32.0-36.0); MEAN CORPUSCULAR VOLUME 91.6 fL (79-99); NEUTROPHILS % (AUTO) 65.6 % (40.0-77.0); PLATELET COUNT (AUTO) 238 K/uL (130-400); RED BLOOD CELL COUNT(AUTO) 2.74 MIL/uL (4.50-6.20); RED CELL DISTRIBUTION WIDTH 14.1 % (11.0-15.5); WHITE BLOOD COUNT (AUTO) 4.8 K/uL (4.8-10.8)
[2020-10-09 00:54] LABS: APPEARANCE,URINE Clear (CLEAR); BILIRUBIN,URINE Negative (NEGATIVE); COLOR,URINE Yellow (YELLOW); GLUCOSE, URINE (UA) >=1000 mg/dL (NEGATIVE); KETONES,URINE Negative (NEGATIVE); LEUKOCYTE ESTERASE ,URINE Negative (NEGATIVE); NITRATE,URINE Negative (NEGATIVE); OCCULT BLOOD,URINE Trace (NEGATIVE); PROTEIN,URINE 300 mg/dL (NEGATIVE); UROBILINOGEN,URINE 0.2 mg/dL (0.2-1.0)
[2020-10-09 00:55] LABS: CHOLESTEROL 159 mg/dL (<200); HDL CHOLESTEROL 127 mg/dL (29-71); LDL DIRECT 67 mg/dL (0-99); TRIGLYCERIDES 234 mg/dL (30-200)
[2020-10-09 01:00] LABS: RBC,URINE 0-1 /HPF (0-1); WBC,URINE None Seen /HPF (0-1)
[2020-10-09 01:01] LABS: BACTERIA,URINE None Seen /HPF (None Seen); MUCUS,URINE Rare LPF (None Seen); SQUAMOUS EPITHELIAL CELL,UR Rare /HPF (0-2)
[2020-10-09 01:02] LABS: AMPHET/METH SCREEN,URINE NEGATIVE (NEGATIVE); BARBITURATE SCREEN, URINE NEGATIVE (NEGATIVE); BENZODIAZEPINES SCREEN,URINE NEGATIVE (NEGATIVE); CANNABINOID SCREEN,URINE NEGATIVE (NEGATIVE); COCAINE SCREEN,URINE POSITIVE (NEGATIVE); OPIATE SCREEN,URINE NEGATIVE (NEGATIVE); PHENCYCLIDINE SCREEN,URINE NEGATIVE (NEGATIVE)
[2020-10-09] MEDS ORDERED: GLUCAGON 1MG KIT 1 MG ML IM PRN (03:15)
[2020-10-09] MEDS ORDERED: DEXTROSE 50%-WATER 50 ML DISP.SYRIN IV PRN (03:15)
[2020-10-09] MEDS ORDERED: ACETAMINOPHEN 325 MG TAB PO PRN ×2 (03:15)
[2020-10-09] MEDS ORDERED: ONDANSETRON HCL 4 MG/2 ML VIAL IV PRN (03:15)
[2020-10-09] MEDS ORDERED: SODIUM CHLORIDE 0.9% 1000ML 1,000 ML IV SCH (03:15)
[2020-10-09] MEDS ORDERED: MORPHINE SULFATE 2 MG/ML 1ML SYG ONE (03:36)
[2020-10-09 04:24] VITALS: BP 122/75
[2020-10-09] MEDS ORDERED: MORPHINE SULFATE 2 MG/ML 1ML SYG IVP PRN (05:15)
[2020-10-09] MEDS ORDERED: INSULIN HUMULIN R 100 UNIT/ML 3ML SQ SCH (06:00)
[2020-10-09 07:59] VITALS: BP_SYST 123; BP_SYST 125; BP_DIAS 76; BP_DIAS 79
[2020-10-09] MEDS ORDERED: FAMOTIDINE/PF 20 MG/2 ML VIAL IV SCH (09:00)
[2020-10-09 10:00] VITALS: BP 127/48
--- NOTE | 2020-10-09 11:22 | NUR ---
patient signed ama form, no reason provided notified smokehouse operator, the charge nurse and the hospitalist
--- NOTE | 2020-10-09 11:44 | NUR ---
CM NOTE/IA NOT DONE PATIENT LEFT AMA, IA NOT DONE. Addendum: 10/09/20 at 1145 by TOYIN CASAREZ RN CM Amended: Links added.
== END 2020-10-09 10:25 | disposition left against medical advice (07) | DRG 637 ==
LOC: EDH 23:41 → OBSVTOIN 23:42 → EDHIP 23:42 → 4AH 10-09 04:20
PROVIDERS: ADMIT Internal Medicine; ATTEND Internal Medicine
DX: E11.65 Type 2 diabetes mellitus with hyperglycemia (principal); E43 Unspecified severe protein-calorie malnutrition; K86.1 Other chronic pancreatitis; I10 Essential (primary) hypertension; E78.00 Pure hypercholesterolemia, unspecified; F14.90 Cocaine use, unspecified, uncomplicated; Z68.21 Body mass index [BMI] 21.0-21.9, adult; Z87.440 Personal history of urinary (tract) infections; Z89.511 Acquired absence of right leg below knee; Z89.512 Acquired absence of left leg below knee; Z88.8 Allergy status to other drugs, medicaments and biological substances; Z82.3 Family history of stroke; Z83.3 Family history of diabetes mellitus; Z82.49 Family history of ischemic heart disease and other diseases of the circulatory system
CPT/HCPCS: 36415; 71045; 80053; 80061; 80305; 81001; 82948; 83690; 84484; 85025; 93005; G0378; J2270; J2405; J3490; J7030

== ENCOUNTER 2020-10-09 22:39 | Inpatient (IN) | payer OTHER ==
[~2020-10-09] VITALS: Ht 170.2 cm; Wt 77.8 kg
[2020-10-09 23:10] LABS: BASOPHILS % (AUTO) 0.9 % (0.0-5.0); HEMATOCRIT 24.4 % (42-54); LYMPHOCYTES % (AUTO) 25.1 % (21.0-51.0); MEAN CORPUSCULAR HEMOGLOBIN 30.1 pg (27.0-33.0); MEAN CORPUSCULAR HGB CONC 33.2 g/dL (32.0-36.0); MEAN CORPUSCULAR VOLUME 90.7 fL (79-99); NEUTROPHILS % (AUTO) 67.7 % (40.0-77.0); PLATELET COUNT (AUTO) 240 K/uL (130-400); RED BLOOD CELL COUNT(AUTO) 2.69 MIL/uL (4.50-6.20); RED CELL DISTRIBUTION WIDTH 13.9 % (11.0-15.5); WHITE BLOOD COUNT (AUTO) 3.5 K/uL (4.8-10.8)
[2020-10-09 23:23] LABS: INR 0.96 (0.85-1.15); PROTHROMBIN TIME 10.3 SEC (9.6-11.6)
[2020-10-09 23:24] LABS: PARTIAL THROMBOPLASTIN TIME 24.9 SEC (26.3-35.5)
[2020-10-09 23:28] LABS: ALBUMIN 1.8 g/dL (3.5-5.0); POTASSIUM 4.7 mmol/L (3.5-5.1); TOTAL PROTEIN, SERUM 5.1 g/dL (6.0-8.3)
[2020-10-09] MEDS ORDERED: MORPHINE SULFATE 2 MG/ML 1ML SYG ONE (23:32)
[2020-10-09 23:39] LABS: BILIRUBIN,TOTAL 0.1 mg/dL (0.2-1.0)
[2020-10-09] MEDS ORDERED: ONDANSETRON HCL 4 MG/2 ML VIAL ONE (23:41)
[2020-10-10] MEDS ORDERED: GLUCAGON 1MG KIT 1 MG ML IM PRN (00:30)
[2020-10-10] MEDS ORDERED: ACETAMINOPHEN 325 MG TAB PO PRN ×2 (00:30)
[2020-10-10] MEDS ORDERED: LACTULOSE 20 GM/30 ML UDCUP PO PRN (00:30)
[2020-10-10] MEDS ORDERED: DEXTROSE 50%-WATER 50 ML DISP.SYRIN IV PRN (00:30)
[2020-10-10] MEDS: SODIUM CHLORIDE 0.9% 1000ML 1,000 ML IV SCH ×2 (00:30→08:15)
[2020-10-10] MEDS ORDERED: INSULIN HUMULIN R 100 UNIT/ML 3ML ONE (00:39)
[2020-10-10] MEDS ORDERED: SODIUM CHLORIDE 0.9% 1000ML 1,000 ML IV ONE (00:40)
[2020-10-10 01:07] VITALS: BP 117/78
[2020-10-10] MEDS ORDERED: SODIUM CHLORIDE 0.9% 500ML 500 ML IV ONE (03:00)
[2020-10-10] MEDS: ONDANSETRON HCL 4 MG/2 ML VIAL IV PRN ×2 (03:24→08:23)
[2020-10-10] MEDS: MORPHINE SULFATE 2 MG/ML 1ML SYG IV PRN ×3 (03:24→12:54)
[2020-10-10 03:52] VITALS: BP 114/72
[2020-10-10] MEDS: INSULIN HUMULIN R 100 UNIT/ML 3ML SQ SCH ×2 (06:36→11:51)
[2020-10-10 08:17] VITALS: BP 107/65
[2020-10-10] MEDS ORDERED: FAMOTIDINE/PF 20 MG/2 ML VIAL IV SCH (09:00)
[2020-10-10 11:07] LABS: CHOLESTEROL 152 mg/dL (<200); HDL CHOLESTEROL 59 mg/dL (29-71); LDL DIRECT 69 mg/dL (0-99); TRIGLYCERIDES 160 mg/dL (30-200)
[2020-10-10 12:04] VITALS: BP 130/81
== END 2020-10-10 14:20 | disposition left against medical advice (07) | DRG 439 ==
LOC: EDH 22:39 → EDHIP 22:40 → 4BH 10-10 01:07
PROVIDERS: ADMIT Family Medicine; ATTEND Family Medicine
DX: K85.90 Acute pancreatitis without necrosis or infection, unspecified (principal); E87.1 Hypo-osmolality and hyponatremia; E44.0 Moderate protein-calorie malnutrition; K86.1 Other chronic pancreatitis; F14.10 Cocaine abuse, uncomplicated; I10 Essential (primary) hypertension; E11.51 Type 2 diabetes mellitus with diabetic peripheral angiopathy without gangrene; E78.5 Hyperlipidemia, unspecified; Z68.26 Body mass index [BMI] 26.0-26.9, adult; Z91.14 Patient's other noncompliance with medication regimen; Z91.19 Patient's noncompliance with other medical treatment and regimen; Z89.512 Acquired absence of left leg below knee; Z89.511 Acquired absence of right leg below knee; Z90.49 Acquired absence of other specified parts of digestive tract; Z88.8 Allergy status to other drugs, medicaments and biological substances; Z82.3 Family history of stroke; Z83.3 Family history of diabetes mellitus; Z82.49 Family history of ischemic heart disease and other diseases of the circulatory system
CPT/HCPCS: 36415; 80053; 80061; 82550; 82948; 83605; 83690; 84484; 85025; 85610; 85730; 93005; G0378; J1815; J2405; J3490; J7030

== ENCOUNTER 2020-10-11 21:42 | Inpatient (IN) | payer OTHER ==
[~2020-10-11] VITALS: Ht 170.2 cm; Wt 67.3 kg
[2020-10-11 22:21] LABS: BASOPHILS % (AUTO) 0.7 % (0.0-5.0); EOSINOPHILS % (AUTO) 1.1 % (0.0-8.0); HEMATOCRIT 24.9 % (42-54); LYMPHOCYTES % (AUTO) 27.4 % (21.0-51.0); MEAN CORPUSCULAR HEMOGLOBIN 30.2 pg (27.0-33.0); MEAN CORPUSCULAR HGB CONC 31.7 g/dL (32.0-36.0); MONOCYTES % (AUTO) 4.4 % (3.0-13.0); NEUTROPHILS % (AUTO) 66.4 % (40.0-77.0); PLATELET COUNT (AUTO) 247 K/uL (130-400); RED BLOOD CELL COUNT(AUTO) 2.62 MIL/uL (4.50-6.20); WHITE BLOOD COUNT (AUTO) 2.7 K/uL (4.8-10.8)
[2020-10-11] MEDS ORDERED: MAG HYDROX/AL HYDROX/SIMETH ES 30 ML SUSP UDCUP ONE (22:24)
[2020-10-11] MEDS ORDERED: LIDOCAINE HCL 2% VISCOUS 15 ML UDCUP ONE (22:24)
[2020-10-11] MEDS ORDERED: SODIUM CHLORIDE 0.9% 500ML 500 ML IV ONE ×2 (22:25→23:00)
[2020-10-11] MEDS ORDERED: FENTANYL CITRATE PF 50 MCG/1 ML 2ML VIAL ONE (22:25)
[2020-10-11 22:30] LABS: APPEARANCE,URINE Clear (CLEAR); BILIRUBIN,URINE Negative (NEGATIVE); COLOR,URINE Yellow (YELLOW); GLUCOSE, URINE (UA) >=1000 mg/dL (NEGATIVE); KETONES,URINE Negative (NEGATIVE); LEUKOCYTE ESTERASE ,URINE Negative (NEGATIVE); NITRATE,URINE Negative (NEGATIVE); OCCULT BLOOD,URINE Trace (NEGATIVE); PROTEIN,URINE 300 mg/dL (NEGATIVE); UROBILINOGEN,URINE 0.2 mg/dL (0.2-1.0)
[2020-10-11 22:37] LABS: CREATININE 1.4 mg/dL (0.5-1.5); POTASSIUM 4.1 mmol/L (3.5-5.1)
[2020-10-11 22:38] LABS: ALBUMIN 1.9 g/dL (3.5-5.0); TOTAL PROTEIN, SERUM 5.5 g/dL (6.0-8.3)
[2020-10-11 22:39] LABS: BACTERIA,URINE None Seen /HPF (None Seen); RBC,URINE None Seen /HPF (0-1); SQUAMOUS EPITHELIAL CELL,UR Few /HPF (0-2); WBC,URINE None Seen /HPF (0-1)
[2020-10-11 22:48] LABS: BILIRUBIN,TOTAL 0.1 mg/dL (0.2-1.0)
[2020-10-11] MEDS ORDERED: INSULIN HUMULIN R 100 UNIT/ML 3ML ONE ×2 (23:01→23:23)
[2020-10-11 23:02] LABS: BASOPHILS % (MANUAL) 4 % (0-2); LYMPHOCYTES % (MANUAL) 12 % (22-44); MAN.DIFF COMMENT-IMPRESSION MANUAL DIFFERENTIAL; SEGMENTED NEUTROPHILS % 84 % (40-70)
[2020-10-11 23:03] LABS: PLATELET MORPHOLOGY COMMENT ADEQUATE
[2020-10-11 23:17] LABS: ABG BASE EXCESS -8.6 mmol/L (-2.0-3.0); ABG HCO3 16.2 mmol/L (21.0-28.0); ABG OXYGEN SATURATION 86.4 % (95.0-99.0); ABG PCO2 32 mmHg (35-48)
[2020-10-11] MEDS ORDERED: SODIUM CHLORIDE 0.9% 100 ML IV ONE (23:26)
[2020-10-11] MEDS ORDERED: LORAZEPAM 2 MG/ML 1 ML VIAL ONE (23:26)
[2020-10-11] MEDS ORDERED: POTASSIUM CHLORIDE 20 MEQ ERTAB PO ONE (23:27)
[2020-10-11 23:29] LABS: BASOPHILS % (AUTO) 1.1 % (0.0-5.0); EOSINOPHILS % (AUTO) 0.7 % (0.0-8.0); HEMATOCRIT 29.7 % (42-54); LYMPHOCYTES % (AUTO) 35.3 % (21.0-51.0); MEAN CORPUSCULAR HEMOGLOBIN 29.6 pg (27.0-33.0); MEAN CORPUSCULAR HGB CONC 31.3 g/dL (32.0-36.0); MEAN CORPUSCULAR VOLUME 94.6 fL (79-99); MONOCYTES % (AUTO) 1.4 % (3.0-13.0); NEUTROPHILS % (AUTO) 61.5 % (40.0-77.0); PLATELET COUNT (AUTO) 258 K/uL (130-400); RED BLOOD CELL COUNT(AUTO) 3.14 MIL/uL (4.50-6.20); RED CELL DISTRIBUTION WIDTH 13.8 % (11.0-15.5); WHITE BLOOD COUNT (AUTO) 2.8 K/uL (4.8-10.8)
[2020-10-11] MEDS ORDERED: LACTULOSE 20 GM/30 ML UDCUP PO PRN (23:45)
[2020-10-11] MEDS ORDERED: ACETAMINOPHEN 325 MG TAB PO PRN ×2 (23:45)
[2020-10-11] MEDS ORDERED: DEXTROSE 50%-WATER 50 ML DISP.SYRIN IV PRN (23:45)
[2020-10-11] MEDS ORDERED: GLUCAGON 1MG KIT 1 MG ML IM PRN (23:45)
[2020-10-12 03:55] LABS: ABG BASE EXCESS -5.8 mmol/L (-2.0-3.0); ABG HCO3 18.6 mmol/L (21.0-28.0); ABG OXYGEN SATURATION 97.6 % (95.0-99.0); ABG PCO2 34 mmHg (35-48)
[2020-10-12] MEDS ORDERED: HYDROMORPHONE 1 MG/1 ML AMP ONE (05:59)
[2020-10-12] MEDS: INSULIN HUMULIN R 100 UNIT/ML 3ML SQ SCH ×4 (06:00→18:26)
[2020-10-12] MEDS ORDERED: INSULIN HUMULIN R 100 UNIT/ML 3ML ONE (06:25)
[2020-10-12 06:52] LABS: BASOPHILS % (AUTO) 0.8 % (0.0-5.0); EOSINOPHILS % (AUTO) 3.8 % (0.0-8.0); HEMATOCRIT 22.2 % (42-54); LYMPHOCYTES % (AUTO) 39.6 % (21.0-51.0); MEAN CORPUSCULAR HEMOGLOBIN 29.8 pg (27.0-33.0); MEAN CORPUSCULAR HGB CONC 33.3 g/dL (32.0-36.0); MEAN CORPUSCULAR VOLUME 89.5 fL (79-99); MONOCYTES % (AUTO) 7.1 % (3.0-13.0); NEUTROPHILS % (AUTO) 48.4 % (40.0-77.0); PLATELET COUNT (AUTO) 216 K/uL (130-400); RED BLOOD CELL COUNT(AUTO) 2.48 MIL/uL (4.50-6.20); RED CELL DISTRIBUTION WIDTH 13.7 % (11.0-15.5)
[2020-10-12 07:11] LABS: ALANINE AMINOTRANSFERASE 47 U/L (12-78); ALBUMIN 1.6 g/dL (3.5-5.0); ASPARTATE AMINOTRANSFERASE 31 U/L (10-37); CARBON DIOXIDE 21 mmol/L (21-32); CHLORIDE 105 mmol/L (101-111); CREATININE 0.8 mg/dL (0.5-1.5); GLOMERULAR FILTR. RATE CALC 111 mL/min (>60); GLUCOSE,RANDOM 286 mg/dL (70-105); POTASSIUM 3.4 mmol/L (3.5-5.1); SODIUM SERUM 136 mmol/L (136-145); TOTAL PROTEIN, SERUM 4.7 g/dL (6.0-8.3); UREA NITROGEN, BLOOD 7 mg/dL (7-18)
[2020-10-12 07:44] LABS: BILIRUBIN,TOTAL < 0.1 mg/dL (0.2-1.0)
[2020-10-12] MEDS: ENOXAPARIN SODIUM 30 MG/0.3 ML SQ SCH (09:00)
[2020-10-12] MEDS: FAMOTIDINE/PF 20 MG/2 ML VIAL IV SCH ×2 (09:00→21:19)
[2020-10-12] MEDS: SODIUM CHLORIDE 0.9% 1000ML 1,000 ML IV SCH ×2 (09:42)
[2020-10-12] MEDS: ONDANSETRON HCL 4 MG/2 ML VIAL IV PRN ×2 (12:32→18:43)
[2020-10-12] MEDS: HYDROMORPHONE 1 MG/1 ML AMP IV PRN ×2 (12:32→18:44)
[2020-10-12 12:54] VITALS: BP 143/73
[2020-10-12 16:48] VITALS: BP 127/73
[2020-10-12 20:17] VITALS: BP 122/74
[2020-10-12] MEDS ORDERED: INSULIN GLARGINE 100 UNITS/ML 10 ML VIAL SQ SCH (21:00)
[2020-10-12 23:21] VITALS: BP 121/63
[2020-10-13] MEDS: SODIUM CHLORIDE 0.9% 1000ML 1,000 ML IV SCH ×3 (00:07→16:00)
[2020-10-13] MEDS: ONDANSETRON HCL 4 MG/2 ML VIAL IV PRN ×4 (00:12→18:18)
[2020-10-13] MEDS: HYDROMORPHONE 1 MG/1 ML AMP IV PRN ×4 (00:12→18:19)
[2020-10-13 04:13] VITALS: BP 146/85
[2020-10-13] MEDS: INSULIN HUMULIN R 100 UNIT/ML 3ML SQ SCH ×4 (05:53→16:45)
[2020-10-13 08:00] VITALS: BP 134/80
[2020-10-13] MEDS: FAMOTIDINE/PF 20 MG/2 ML VIAL IV SCH (09:10)
[2020-10-13] MEDS: ENOXAPARIN SODIUM 30 MG/0.3 ML SQ SCH (09:11)
[2020-10-13 12:06] VITALS: BP 124/75
[2020-10-13 16:00] VITALS: BP 127/78
== END 2020-10-13 20:18 | disposition home or self-care (01) | DRG 438 ==
LOC: EDH 21:42 → EDHIP 21:43 → 4BH 10-12 08:47
PROVIDERS: ADMIT Family Medicine; ATTEND Family Medicine
DX: K85.90 Acute pancreatitis without necrosis or infection, unspecified (principal); E11.00 Type 2 diabetes mellitus with hyperosmolarity without nonketotic hyperglycemic-hyperosmolar coma (NKHHC); E87.1 Hypo-osmolality and hyponatremia; K86.1 Other chronic pancreatitis; I10 Essential (primary) hypertension; E78.5 Hyperlipidemia, unspecified; D64.9 Anemia, unspecified; E11.51 Type 2 diabetes mellitus with diabetic peripheral angiopathy without gangrene; Z91.19 Patient's noncompliance with other medical treatment and regimen; Z89.512 Acquired absence of left leg below knee; Z89.511 Acquired absence of right leg below knee; Z79.4 Long term (current) use of insulin; Z82.3 Family history of stroke; Z83.3 Family history of diabetes mellitus; Z82.49 Family history of ischemic heart disease and other diseases of the circulatory system
CPT/HCPCS: 36415; 36600; 80053; 81001; 82010; 82150; 82803; 82948; 83690; 84484; 85025; 93005; 99291; G0378; J1170; J1650; J1815; J2060; J2405; J3010; J3490; J7030; J7040

== ENCOUNTER 2020-11-20 15:13 | Inpatient (IN) | payer OTHER ==
[~2020-11-20] VITALS: Ht 162.6 cm; Wt 63.5 kg
[2020-11-20 15:40] LABS: ABG BASE EXCESS -1.1 mmol/L (-2.0-3.0); ABG OXYGEN SATURATION 96.4 % (95.0-99.0); ABG PCO2 36 mmHg (35-48)
[2020-11-20 15:40] LABS: BASOPHILS % (AUTO) 0.6 % (0.0-5.0); EOSINOPHILS % (AUTO) 0.6 % (0.0-8.0); LYMPHOCYTES % (AUTO) 17.3 % (21.0-51.0); MEAN CORPUSCULAR VOLUME 90.9 fL (79-99); MONOCYTES % (AUTO) 2.5 % (3.0-13.0); NEUTROPHILS % (AUTO) 78.7 % (40.0-77.0); PLATELET COUNT (AUTO) 258 K/uL (130-400); RED BLOOD CELL COUNT(AUTO) 2.97 MIL/uL (4.50-6.20); RED CELL DISTRIBUTION WIDTH 13.9 % (11.0-15.5); WHITE BLOOD COUNT (AUTO) 6.9 K/uL (4.8-10.8)
[2020-11-20] MEDS ORDERED: LIDOCAINE HCL 2% VISCOUS 15 ML UDCUP ONE (15:41)
[2020-11-20] MEDS ORDERED: MAG HYDROX/AL HYDROX/SIMETH ES 30 ML SUSP UDCUP ONE (15:41)
[2020-11-20 16:06] LABS: ALBUMIN 2.1 g/dL (3.5-5.0); BILIRUBIN,TOTAL 0.1 mg/dL (0.2-1.0); CREATININE 1.3 mg/dL (0.5-1.5); TOTAL PROTEIN, SERUM 5.6 g/dL (6.0-8.3)
[2020-11-20] MEDS ORDERED: SODIUM CHLORIDE 0.9% 500ML 500 ML IV ONE (16:08)
[2020-11-20] MEDS ORDERED: INSULIN HUMULIN R 100 UNIT/ML 3ML ONE (16:09)
[2020-11-20] MEDS ORDERED: MORPHINE SULFATE 2 MG/ML 1ML SYG ONE (16:09)
[2020-11-20 16:10] LABS: APPEARANCE,URINE CLOUDY (CLEAR); BILIRUBIN,URINE NEGATIVE (NEGATIVE); COLOR,URINE YELLOW (YELLOW); GLUCOSE, URINE (UA) >=1000 mg/dL (NEGATIVE); KETONES,URINE NEGATIVE (NEGATIVE); LEUKOCYTE ESTERASE ,URINE SMALL (NEGATIVE); NITRATE,URINE NEGATIVE (NEGATIVE); OCCULT BLOOD,URINE MODERATE (NEGATIVE); PROTEIN,URINE 100 mg/dL (NEGATIVE); UROBILINOGEN,URINE 0.2 mg/dL (0.2-1.0)
[2020-11-20 16:18] LABS: AMPHET/METH SCREEN,URINE NEGATIVE (NEGATIVE); BARBITURATE SCREEN, URINE NEGATIVE (NEGATIVE); BENZODIAZEPINES SCREEN,URINE NEGATIVE (NEGATIVE); CANNABINOID SCREEN,URINE POSITIVE (NEGATIVE); COCAINE SCREEN,URINE POSITIVE (NEGATIVE); OPIATE SCREEN,URINE NEGATIVE (NEGATIVE); PHENCYCLIDINE SCREEN,URINE NEGATIVE (NEGATIVE)
[2020-11-20 16:25] LABS: BACTERIA,URINE Rare /HPF (None Seen); RBC,URINE 26-50 /HPF (0-1); WBC,URINE >100 /HPF (0-1); YEAST,URINE BUDDING Moderate /HPF (None Seen)
[2020-11-20 16:26] LABS: SQUAMOUS EPITHELIAL CELL,UR Rare /HPF (0-2)
[2020-11-20] MEDS ORDERED: ACETAMINOPHEN 325 MG TAB PO PRN (17:30)
[2020-11-20] MEDS: SODIUM CHLORIDE 0.9% 1000ML 1,000 ML IV SCH (17:30)
[2020-11-20] MEDS ORDERED: SODIUM CHLORIDE 0.9% 1000ML 1,000 ML IV ONE (17:34)
[2020-11-20] MEDS: INSULIN HUMULIN R 100 UNIT/ML 3ML SQ SCH ×2 (18:00→23:58)
[2020-11-20] MEDS: INSULIN GLARGINE 100 UNITS/ML 10 ML VIAL SQ SCH ×2 (20:05→20:12)
[2020-11-20] MEDS: FAMOTIDINE/PF 20 MG/2 ML VIAL IV SCH (20:12)
[2020-11-20] MEDS: MORPHINE SULFATE 4 MG/1ML SYG IV PRN (20:19)
[2020-11-20] MEDS: ONDANSETRON HCL 4 MG/2 ML VIAL IV PRN (20:19)
[2020-11-20 22:20] VITALS: BP 112/68
[2020-11-21] VITALS (7 sets, daily range): BP systolic 103–139; BP diastolic 59–87
[2020-11-21] MEDS: ONDANSETRON HCL 4 MG/2 ML VIAL IV PRN ×2 (02:34→20:54)
[2020-11-21] MEDS: MORPHINE SULFATE 4 MG/1ML SYG IV PRN ×3 (02:35→20:54)
[2020-11-21] MEDS: SODIUM CHLORIDE 0.9% 1000ML 1,000 ML IV SCH ×3 (02:52→14:33)
[2020-11-21 04:51] LABS: BASOPHILS % (AUTO) 0.2 % (0.0-5.0); EOSINOPHILS % (AUTO) 1.7 % (0.0-8.0); HEMATOCRIT 23.7 % (42-54); LYMPHOCYTES % (AUTO) 31.4 % (21.0-51.0); MEAN CORPUSCULAR HEMOGLOBIN 29.5 pg (27.0-33.0); MEAN CORPUSCULAR HGB CONC 32.5 g/dL (32.0-36.0); MEAN CORPUSCULAR VOLUME 90.8 fL (79-99); MONOCYTES % (AUTO) 3.1 % (3.0-13.0); NEUTROPHILS % (AUTO) 63.4 % (40.0-77.0); PLATELET COUNT (AUTO) 223 K/uL (130-400); RED BLOOD CELL COUNT(AUTO) 2.61 MIL/uL (4.50-6.20); RED CELL DISTRIBUTION WIDTH 13.8 % (11.0-15.5); WHITE BLOOD COUNT (AUTO) 5.4 K/uL (4.8-10.8)
[2020-11-21 05:18] LABS: ALBUMIN 1.6 g/dL (3.5-5.0); BILIRUBIN,TOTAL 0.2 mg/dL (0.2-1.0); CREATININE 0.7 mg/dL (0.5-1.5); POTASSIUM 3.7 mmol/L (3.5-5.1); TOTAL PROTEIN, SERUM 4.6 g/dL (6.0-8.3)
[2020-11-21] MEDS: INSULIN HUMULIN R 100 UNIT/ML 3ML SQ SCH ×3 (05:58→18:00)
[2020-11-21] MEDS ORDERED: DEXTROSE 50%-WATER 50 ML DISP.SYRIN IV ONE (07:28)
[2020-11-21] MEDS ORDERED: GLUCAGON 1MG KIT 1 MG ML IM PRN (07:30)
[2020-11-21] MEDS ORDERED: DEXTROSE 50%-WATER 50 ML DISP.SYRIN IV PRN (07:30)
[2020-11-21] MEDS: FAMOTIDINE/PF 20 MG/2 ML VIAL IV SCH ×2 (08:36→20:54)
[2020-11-21] MEDS: ENOXAPARIN SODIUM 30 MG/0.3 ML SQ SCH (08:37)
[2020-11-21] MEDS ORDERED: MORPHINE SULFATE 2 MG/ML 1ML SYG ONE (14:14)
[2020-11-21] MEDS: INSULIN GLARGINE 100 UNITS/ML 10 ML VIAL SQ SCH (21:22)
[2020-11-22] MEDS: INSULIN HUMULIN R 100 UNIT/ML 3ML SQ SCH ×4 (00:18→12:11)
[2020-11-22 05:18] VITALS: BP 156/95
[2020-11-22 06:20] LABS: BASOPHILS % (AUTO) 0.2 % (0.0-5.0); EOSINOPHILS % (AUTO) 1.6 % (0.0-8.0); HEMATOCRIT 23.5 % (42-54); LYMPHOCYTES % (AUTO) 23.2 % (21.0-51.0); MEAN CORPUSCULAR HGB CONC 33.6 g/dL (32.0-36.0); MEAN CORPUSCULAR VOLUME 89.4 fL (79-99); MONOCYTES % (AUTO) 2.2 % (3.0-13.0); NEUTROPHILS % (AUTO) 72.6 % (40.0-77.0); PLATELET COUNT (AUTO) 220 K/uL (130-400); RED BLOOD CELL COUNT(AUTO) 2.63 MIL/uL (4.50-6.20); RED CELL DISTRIBUTION WIDTH 13.7 % (11.0-15.5); WHITE BLOOD COUNT (AUTO) 5.1 K/uL (4.8-10.8)
[2020-11-22 06:35] LABS: ALANINE AMINOTRANSFERASE 84 U/L (12-78); ALBUMIN 1.5 g/dL (3.5-5.0); ASPARTATE AMINOTRANSFERASE 71 U/L (10-37); CARBON DIOXIDE 22 mmol/L (21-32); CHLORIDE 104 mmol/L (101-111); CREATININE 0.7 mg/dL (0.5-1.5); GLOMERULAR FILTR. RATE CALC 129 mL/min (>60); GLUCOSE,RANDOM 326 mg/dL (70-105); POTASSIUM 3.9 mmol/L (3.5-5.1); SODIUM SERUM 133 mmol/L (136-145); TOTAL PROTEIN, SERUM 4.7 g/dL (6.0-8.3); UREA NITROGEN, BLOOD 15 mg/dL (7-18)
[2020-11-22 06:36] LABS: BILIRUBIN,TOTAL < 0.1 mg/dL (0.2-1.0)
[2020-11-22 07:48] VITALS: BP 127/86
[2020-11-22] MEDS: FAMOTIDINE/PF 20 MG/2 ML VIAL IV SCH (08:34)
[2020-11-22] MEDS: ENOXAPARIN SODIUM 30 MG/0.3 ML SQ SCH (08:35)
[2020-11-22] MEDS: MORPHINE SULFATE 4 MG/1ML SYG IV PRN (08:46)
[2020-11-22 11:07] VITALS: BP 121/74
[2020-11-22] MEDS ORDERED: INSULIN HUMULIN R 100 UNIT/ML 3ML SQ SCH (11:30)
== END 2020-11-22 14:35 | disposition home or self-care (01) | DRG 439 ==
LOC: EDH 15:13 → EDHIP 15:14 → OBSVTOIN 15:14 → 3DH 19:46
PROVIDERS: ADMIT Family Medicine; ATTEND Family Medicine
DX: K85.90 Acute pancreatitis without necrosis or infection, unspecified (principal); E46 Unspecified protein-calorie malnutrition; E11.65 Type 2 diabetes mellitus with hyperglycemia; K86.1 Other chronic pancreatitis; F12.10 Cannabis abuse, uncomplicated; F14.10 Cocaine abuse, uncomplicated; E86.0 Dehydration; I11.0 Hypertensive heart disease with heart failure; I50.9 Heart failure, unspecified; E78.00 Pure hypercholesterolemia, unspecified; E78.5 Hyperlipidemia, unspecified; Z79.4 Long term (current) use of insulin; Z88.6 Allergy status to analgesic agent; Z89.511 Acquired absence of right leg below knee; Z89.512 Acquired absence of left leg below knee; Z91.14 Patient's other noncompliance with medication regimen; Z68.24 Body mass index [BMI] 24.0-24.9, adult; Z90.49 Acquired absence of other specified parts of digestive tract
CPT/HCPCS: 36415; 80053; 80305; 81001; 82435; 82803; 82947; 82948; 83605; 83690; 84132; 84295; 85018; 85025; 87088; G0378; J1650; J1815; J2270; J2405; J3490; J7030; J7040; J7070

== ENCOUNTER 2021-03-24 19:42 | Inpatient (IN) | payer MEDICAID, OTHER ==
[~2021-03-24] VITALS: Ht 175.3 cm; Wt 81.3 kg
[2021-03-24 19:52] VITALS: BP 144/78
[2021-03-24] MEDS ORDERED: ZOSYN 3.375GM +NS 50ML IV ONE (21:00)
[2021-03-24] MEDS ORDERED: MORPHINE 4 MG SYG (4MG/1ML) IVP ONE (21:00)
[2021-03-24] MEDS ORDERED: PANTOPRAZOLE 40 MG/VIAL IVP ONE (21:00)
[2021-03-24] MEDS ORDERED: SODIUM CHLORIDE 0.9% 1000ML 1,000 ML IV ONE (21:00)
[2021-03-24] MEDS ORDERED: ONDANSETRON HCL 4 MG/2 ML VIAL IVP ONE (21:00)
[2021-03-24] MEDS ORDERED: IOHEXOL-350 75 ML VIAL IV ONE (21:27)
[2021-03-24 23:37] LABS: BILIRUBIN,URINE Negative (NEGATIVE); COLOR,URINE Yellow (YELLOW); GLUCOSE, URINE (UA) >=1000 mg/dL (NEGATIVE); KETONES,URINE Negative (NEGATIVE); LEUKOCYTE ESTERASE ,URINE Moderate (NEGATIVE); NITRATE,URINE Negative (NEGATIVE); OCCULT BLOOD,URINE Moderate (NEGATIVE); PROTEIN,URINE 300 mg/dL (NEGATIVE); UROBILINOGEN,URINE 0.2 mg/dL (0.2-1.0)
[2021-03-24 23:42] LABS: APPEARANCE,URINE CLOUDY (CLEAR)
[2021-03-24 23:45] LABS: AMPHET/METH SCREEN,URINE NEGATIVE (NEGATIVE); BARBITURATE SCREEN, URINE NEGATIVE (NEGATIVE); BENZODIAZEPINES SCREEN,URINE NEGATIVE (NEGATIVE); CANNABINOID SCREEN,URINE NEGATIVE (NEGATIVE); COCAINE SCREEN,URINE POSITIVE (NEGATIVE); OPIATE SCREEN,URINE NEGATIVE (NEGATIVE); PHENCYCLIDINE SCREEN,URINE NEGATIVE (NEGATIVE)
[2021-03-24 23:48] LABS: WBC,URINE >100 /HPF (0-1)
[2021-03-24 23:49] LABS: BACTERIA,URINE Few /HPF (None Seen)
[2021-03-25] VITALS (7 sets, daily range): BP systolic 124–153; BP diastolic 54–87
[2021-03-25 00:33] LABS: B-TYPE NATRIURETIC PEPTIDE 195 pg/mL (0-100)
[2021-03-25 00:42] LABS: BASOPHILS % (AUTO) 0.5 % (0.0-5.0); EOSINOPHILS % (AUTO) 1.2 % (0.0-8.0); HEMATOCRIT 24.3 % (42-54); LYMPHOCYTES % (AUTO) 12.1 % (21.0-51.0); MEAN CORPUSCULAR HEMOGLOBIN 29.6 pg (27.0-33.0); MEAN CORPUSCULAR HGB CONC 31.3 g/dL (32.0-36.0); MEAN CORPUSCULAR VOLUME 94.6 fL (79-99); MONOCYTES % (AUTO) 5.8 % (3.0-13.0); NEUTROPHILS % (AUTO) 80.1 % (40.0-77.0); PLATELET COUNT (AUTO) 273 K/uL (130-400); RED BLOOD CELL COUNT(AUTO) 2.57 MIL/uL (4.50-6.20); RED CELL DISTRIBUTION WIDTH 15.2 % (11.0-15.5); WHITE BLOOD COUNT (AUTO) 6.5 K/uL (4.8-10.8)
[2021-03-25 01:01] LABS: ALANINE AMINOTRANSFERASE 83 U/L (12-78); ASPARTATE AMINOTRANSFERASE 22 U/L (10-37); BILIRUBIN,TOTAL 0.2 mg/dL (0.2-1.0); CARBON DIOXIDE 14 mmol/L (21-32); CHLORIDE 102 mmol/L (101-111); CREATINE KINASE, TOTAL 212 U/L (21-232); CREATININE 1.6 mg/dL (0.5-1.5); GLOMERULAR FILTR. RATE CALC 50 mL/min (>60); LIPASE 85 U/L (114-286); MYOGLOBIN 99 ng/mL (10-92); SODIUM SERUM 126 mmol/L (136-145); TOTAL PROTEIN, SERUM 5.9 g/dL (6.0-8.3); TROPONIN I < 0.04 ng/mL (0.00-0.06); UREA NITROGEN, BLOOD 21 mg/dL (7-18)
[2021-03-25 01:07] LABS: POTASSIUM 6.3 mmol/L (3.5-5.1)
[2021-03-25 01:08] LABS: GLUCOSE,RANDOM 716 mg/dL (70-105)
[2021-03-25] MEDS ORDERED: SODIUM CHLORIDE 0.9% 1000ML 1,000 ML IV ONE ×2 (01:30)
[2021-03-25] MEDS ORDERED: MORPHINE 2 MG SYG (2MG/1ML) IVP ONE (01:30)
[2021-03-25] MEDS ORDERED: INSULIN HUMULIN R 100 UNIT/ML 3ML IV SCH ×2 (01:30→03:45)
[2021-03-25] MEDS ORDERED: CEFTRIAXONE SODIUM 1 GM IVP SCH (01:30)
[2021-03-25 01:33] LABS: INR 0.94 (0.85-1.15); PROTHROMBIN TIME 10.3 SEC (9.6-11.6)
[2021-03-25 01:38] LABS: BASE EXCESS,VENOUS BLOOD GAS -11.9 (-2.0-3.0); HCO3,VENOUS BLOOD GAS 13.5 (21.0-28.0); PCO2,VENOUS BLOOD GAS 30 (35-48)
[2021-03-25] MEDS ORDERED: ACETAMINOPHEN-CODEINE 300/30MG TAB PO PRN (02:30)
[2021-03-25] MEDS ORDERED: NITROGLYCERIN 0.4 MG SL TAB SL PRN (02:30)
[2021-03-25] MEDS ORDERED: LACTULOSE 20 GM/30 ML UDCUP PO PRN (02:30)
[2021-03-25] MEDS: CEFTRIAXONE SODIUM 1 GM IV SCH (02:30)
[2021-03-25] MEDS ORDERED: DEXTROSE 50%-WATER 50 ML DISP.SYRIN IV PRN (02:30)
[2021-03-25] MEDS ORDERED: MAG HYDROX/AL HYDROX/SIMETH ES 30 ML SUSP UDCUP PO PRN (02:30)
[2021-03-25] MEDS ORDERED: GLUCAGON 1MG KIT 1 MG ML IM PRN (02:30)
[2021-03-25] MEDS ORDERED: ACETAMINOPHEN 325 MG TAB PO PRN (02:30)
[2021-03-25] MEDS ORDERED: HYDRALAZINE HCL 20 MG/ML VIAL IV PRN (02:30)
[2021-03-25] MEDS ORDERED: GUAIFENESIN-DM 200/20 MG 10 ML PO PRN (02:30)
[2021-03-25] MEDS ORDERED: ONDANSETRON HCL 4 MG/2 ML VIAL IV PRN (02:30)
[2021-03-25] MEDS ORDERED: DIPHENHYDRAMINE HCL 25 MG CAPSULE PO PRN (02:30)
[2021-03-25] MEDS ORDERED: MORPHINE 4 MG SYG (4MG/1ML) IV PRN (02:30)
[2021-03-25 02:51] LABS: HEMOGLOBIN A1C 9.9 % (4.0-6.0)
[2021-03-25 03:39] LABS: CREATININE 1.4 mg/dL (0.5-1.5); POTASSIUM 5.3 mmol/L (3.5-5.1)
[2021-03-25] MEDS ORDERED: LACTATED RINGERS 1000ML 1,000 ML IV ONE (03:45)
[2021-03-25] MEDS ORDERED: SODIUM POLYSTYRENE SULFONATE 15 GM/60 ML ML PO SCH ×2 (05:45→17:00)
[2021-03-25] MEDS ORDERED: MORPHINE 4 MG SYG (4MG/1ML) IM PRN (06:30)
[2021-03-25] MEDS ORDERED: INSULIN GLARGINE 100 UNITS/ML 10 ML VIAL SQ SCH (09:00)
[2021-03-25] MEDS: INSULIN HUMULIN R 100 UNIT/ML 3ML SQ SCH ×4 (09:04→21:00)
[2021-03-25] MEDS: HEPARIN SODIUM 5000UNIT/ML 1ML VIAL SQ SCH ×2 (09:07→22:00)
[2021-03-25] MEDS: FAMOTIDINE/PF 20 MG/2 ML VIAL IV SCH ×2 (09:07→22:00)
[2021-03-25] MEDS: ONDANSETRON HCL 4 MG/2 ML VIAL IVP PRN ×2 (11:07→20:01)
[2021-03-25] MEDS: MORPHINE 2 MG SYG (2MG/1ML) IV PRN ×3 (11:07→20:01)
[2021-03-25 16:07] LABS: CREATININE 1.1 mg/dL (0.5-1.5); POTASSIUM 5.3 mmol/L (3.5-5.1)
[2021-03-26] VITALS (7 sets, daily range): BP systolic 132–154; BP diastolic 70–94
[2021-03-26] MEDS: ONDANSETRON HCL 4 MG/2 ML VIAL IVP PRN ×4 (03:46→22:02)
[2021-03-26] MEDS: CEFTRIAXONE SODIUM 1 GM IV SCH (03:46)
[2021-03-26] MEDS: MORPHINE 2 MG SYG (2MG/1ML) IV PRN ×6 (04:17→22:04)
[2021-03-26 05:02] LABS: HEMATOCRIT 22.5 % (42-54); MEAN CORPUSCULAR HEMOGLOBIN 30.8 pg (27.0-33.0); MEAN CORPUSCULAR VOLUME 96.2 fL (79-99); RED BLOOD CELL COUNT(AUTO) 2.34 MIL/uL (4.50-6.20); RED CELL DISTRIBUTION WIDTH 15.4 % (11.0-15.5); WHITE BLOOD COUNT (AUTO) 4.6 K/uL (4.8-10.8)
[2021-03-26 05:19] LABS: ALBUMIN 1.8 g/dL (3.5-5.0); BILIRUBIN,TOTAL 0.1 mg/dL (0.2-1.0); CREATININE 1.3 mg/dL (0.5-1.5); MAGNESIUM 1.6 mg/dL (1.80-2.40); PHOSPHORUS 3.3 mg/dL (2.5-4.9); POTASSIUM 4.8 mmol/L (3.5-5.1); TOTAL PROTEIN, SERUM 5.8 g/dL (6.0-8.3)
[2021-03-26] MEDS: INSULIN HUMULIN R 100 UNIT/ML 3ML SQ SCH ×7 (05:42→21:00)
[2021-03-26] MEDS: MAGNESIUM 2GM PREMIX 50ML 50 ML IV PRN (07:05)
[2021-03-26] MEDS: Vitamin B Complex/Vit C/Folic Acid PO SCH (07:51)
[2021-03-26] MEDS: INSULIN GLARGINE 100 UNITS/ML 10 ML VIAL SQ SCH (07:59)
[2021-03-26 15:15] LABS: % IRON SATURATION 8.5 % (30-44)
[2021-03-26] MEDS: SODIUM BICARBONATE 650 MG TAB PO SCH (22:01)
[2021-03-27] MEDS: CEFTRIAXONE SODIUM 1 GM IV SCH (02:21)
[2021-03-27] MEDS: TRAMADOL HCL 50 MG TABLET PO PRN ×3 (02:21→22:13)
[2021-03-27 04:05] VITALS: BP 135/67
[2021-03-27] MEDS: MORPHINE 2 MG SYG (2MG/1ML) IV PRN ×4 (04:28→23:52)
[2021-03-27] MEDS: ONDANSETRON HCL 4 MG/2 ML VIAL IVP PRN ×3 (04:28→17:53)
[2021-03-27 04:29] LABS: HEMATOCRIT 21.5 % (42-54); MEAN CORPUSCULAR HEMOGLOBIN 29.6 pg (27.0-33.0); MEAN CORPUSCULAR HGB CONC 32.1 g/dL (32.0-36.0); MEAN CORPUSCULAR VOLUME 92.3 fL (79-99); RED BLOOD CELL COUNT(AUTO) 2.33 MIL/uL (4.50-6.20); RED CELL DISTRIBUTION WIDTH 15.1 % (11.0-15.5); WHITE BLOOD COUNT (AUTO) 4.8 K/uL (4.8-10.8)
[2021-03-27 04:43] LABS: CREATININE 1.1 mg/dL (0.5-1.5); POTASSIUM 4.8 mmol/L (3.5-5.1)
[2021-03-27 07:00] VITALS: BP 149/79
[2021-03-27] MEDS: INSULIN HUMULIN R 100 UNIT/ML 3ML SQ SCH ×7 (07:30→20:29)
[2021-03-27 09:09] LABS: HEMATOCRIT 23.2 % (42-54)
[2021-03-27] MEDS: Vitamin B Complex/Vit C/Folic Acid PO SCH (09:16)
[2021-03-27] MEDS: SODIUM BICARBONATE 650 MG TAB PO SCH ×2 (09:16→20:28)
[2021-03-27] MEDS: INSULIN GLARGINE 100 UNITS/ML 10 ML VIAL SQ SCH (09:24)
[2021-03-27 11:00] VITALS: BP 145/90
[2021-03-27 16:00] VITALS: BP 147/83
[2021-03-27 19:54] VITALS: BP 157/89
[2021-03-27 23:42] VITALS: BP 157/95
[2021-03-28] MEDS: CEFTRIAXONE SODIUM 1 GM IV SCH (01:40)
[2021-03-28 03:51] VITALS: BP 151/90
[2021-03-28 05:33] LABS: CREATININE 1.1 mg/dL (0.5-1.5); POTASSIUM 4.9 mmol/L (3.5-5.1)
[2021-03-28 05:36] LABS: BASOPHILS % (AUTO) 0.7 % (0.0-5.0); EOSINOPHILS % (AUTO) 4.4 % (0.0-8.0); LYMPHOCYTES % (AUTO) 28.7 % (21.0-51.0); MEAN CORPUSCULAR HGB CONC 33.3 g/dL (32.0-36.0); MEAN CORPUSCULAR VOLUME 92.9 fL (79-99); MONOCYTES % (AUTO) 6.5 % (3.0-13.0); NEUTROPHILS % (AUTO) 59.2 % (40.0-77.0); PLATELET COUNT (AUTO) 269 K/uL (130-400); RED BLOOD CELL COUNT(AUTO) 2.26 MIL/uL (4.50-6.20); RED CELL DISTRIBUTION WIDTH 14.9 % (11.0-15.5); WHITE BLOOD COUNT (AUTO) 4.3 K/uL (4.8-10.8)
[2021-03-28] MEDS: INSULIN HUMULIN R 100 UNIT/ML 3ML SQ SCH ×7 (05:54→21:24)
[2021-03-28] MEDS: ONDANSETRON HCL 4 MG/2 ML VIAL IVP PRN ×3 (06:00→21:22)
[2021-03-28] MEDS: MORPHINE 2 MG SYG (2MG/1ML) IV PRN ×4 (06:00→21:23)
[2021-03-28 07:00] VITALS: BP 149/84
[2021-03-28] MEDS: SODIUM BICARBONATE 650 MG TAB PO SCH ×2 (10:30→21:23)
[2021-03-28] MEDS: Vitamin B Complex/Vit C/Folic Acid PO SCH (10:30)
[2021-03-28] MEDS: INSULIN GLARGINE 100 UNITS/ML 10 ML VIAL SQ SCH (10:44)
[2021-03-28 11:00] VITALS: BP 170/98
[2021-03-28] MEDS: TRAMADOL HCL 50 MG TABLET PO PRN (14:34)
[2021-03-28] MEDS ORDERED: MAGNESIUM 2GM PREMIX 50ML 50 ML IV PRN (14:45)
[2021-03-28 15:00] VITALS: BP 160/90
[2021-03-28] MEDS ORDERED: SODIUM CHLORIDE 0.9% 250 ML ONE (15:06)
[2021-03-28 19:30] VITALS: BP 140/89
[2021-03-28 23:33] VITALS: BP 134/86
[2021-03-29] MEDS: CEFTRIAXONE SODIUM 1 GM IV SCH (01:48)
[2021-03-29] MEDS: ONDANSETRON HCL 4 MG/2 ML VIAL IVP PRN ×3 (03:52→19:20)
[2021-03-29] MEDS: MORPHINE 2 MG SYG (2MG/1ML) IV PRN ×3 (03:53→19:21)
[2021-03-29] MEDS: INSULIN HUMULIN R 100 UNIT/ML 3ML SQ SCH ×7 (05:28→21:13)
[2021-03-29 06:16] LABS: BASOPHILS % (AUTO) 0.8 % (0.0-5.0); EOSINOPHILS % (AUTO) 4.3 % (0.0-8.0); HEMATOCRIT 25.1 % (42-54); LYMPHOCYTES % (AUTO) 23.2 % (21.0-51.0); MEAN CORPUSCULAR HEMOGLOBIN 30.9 pg (27.0-33.0); MEAN CORPUSCULAR HGB CONC 33.5 g/dL (32.0-36.0); MEAN CORPUSCULAR VOLUME 92.3 fL (79-99); NEUTROPHILS % (AUTO) 65.1 % (40.0-77.0); PLATELET COUNT (AUTO) 278 K/uL (130-400); RED BLOOD CELL COUNT(AUTO) 2.72 MIL/uL (4.50-6.20); RED CELL DISTRIBUTION WIDTH 14.6 % (11.0-15.5); WHITE BLOOD COUNT (AUTO) 5.3 K/uL (4.8-10.8)
[2021-03-29 06:27] LABS: CREATININE 1.1 mg/dL (0.5-1.5); MAGNESIUM 1.6 mg/dL (1.80-2.40); POTASSIUM 4.8 mmol/L (3.5-5.1)
[2021-03-29] MEDS: MAGNESIUM 2GM PREMIX 50ML 50 ML IV PRN (06:32)
[2021-03-29 07:00] VITALS: BP 135/77
[2021-03-29] MEDS: SODIUM BICARBONATE 650 MG TAB PO SCH ×2 (08:44→21:06)
[2021-03-29] MEDS: Vitamin B Complex/Vit C/Folic Acid PO SCH (08:44)
[2021-03-29] MEDS: TRAMADOL HCL 50 MG TABLET PO PRN (08:44)
[2021-03-29] MEDS: INSULIN GLARGINE 100 UNITS/ML 10 ML VIAL SQ SCH (08:50)
[2021-03-29 11:00] VITALS: BP 142/92
[2021-03-29 16:00] VITALS: BP 146/91
[2021-03-29 20:07] VITALS: BP 166/99
[2021-03-29] MEDS: LACTULOSE 20 GM/30 ML UDCUP PO SCH (21:00)
[2021-03-29 23:57] VITALS: BP 145/89
[2021-03-30] MEDS: TRAMADOL HCL 50 MG TABLET PO PRN ×2 (00:12→17:36)
[2021-03-30] MEDS: ONDANSETRON HCL 4 MG/2 ML VIAL IVP PRN ×3 (03:41→20:03)
[2021-03-30] MEDS: CEFTRIAXONE SODIUM 1 GM IV SCH (03:41)
[2021-03-30] MEDS: MORPHINE 2 MG SYG (2MG/1ML) IV PRN ×3 (03:42→20:04)
[2021-03-30 03:51] VITALS: BP 153/78
[2021-03-30] MEDS: LACTULOSE 20 GM/30 ML UDCUP PO SCH ×3 (05:00→19:58)
[2021-03-30] MEDS: INSULIN HUMULIN R 100 UNIT/ML 3ML SQ SCH ×7 (06:02→20:05)
[2021-03-30 06:24] LABS: BASOPHILS % (AUTO) 0.7 % (0.0-5.0); EOSINOPHILS % (AUTO) 4.8 % (0.0-8.0); HEMATOCRIT 24.6 % (42-54); LYMPHOCYTES % (AUTO) 28.9 % (21.0-51.0); MEAN CORPUSCULAR HEMOGLOBIN 30.2 pg (27.0-33.0); MEAN CORPUSCULAR HGB CONC 32.9 g/dL (32.0-36.0); MEAN CORPUSCULAR VOLUME 91.8 fL (79-99); MONOCYTES % (AUTO) 7.3 % (3.0-13.0); NEUTROPHILS % (AUTO) 57.9 % (40.0-77.0); PLATELET COUNT (AUTO) 280 K/uL (130-400); RED BLOOD CELL COUNT(AUTO) 2.68 MIL/uL (4.50-6.20); RED CELL DISTRIBUTION WIDTH 14.8 % (11.0-15.5); WHITE BLOOD COUNT (AUTO) 4.5 K/uL (4.8-10.8)
[2021-03-30 06:45] LABS: CREATININE 1.1 mg/dL (0.5-1.5); MAGNESIUM 1.7 mg/dL (1.80-2.40); POTASSIUM 4.7 mmol/L (3.5-5.1)
[2021-03-30] MEDS: Vitamin B Complex/Vit C/Folic Acid PO SCH (08:22)
[2021-03-30] MEDS: SODIUM BICARBONATE 650 MG TAB PO SCH ×2 (08:22→20:06)
[2021-03-30] MEDS: INSULIN GLARGINE 100 UNITS/ML 10 ML VIAL SQ SCH (08:23)
[2021-03-30 08:27] VITALS: BP 143/91
[2021-03-30] MEDS ORDERED: CEFU500T67 PO (12:19)
[2021-03-30 12:40] VITALS: BP 158/88
[2021-03-30 16:34] VITALS: BP 174/89
[2021-03-30 20:01] VITALS: BP 163/98
[2021-03-31 00:15] VITALS: BP 149/89
[2021-03-31] MEDS: CEFTRIAXONE SODIUM 1 GM IV SCH (01:37)
[2021-03-31 03:48] VITALS: BP 148/81
[2021-03-31] MEDS: LACTULOSE 20 GM/30 ML UDCUP PO SCH ×3 (04:23→20:57)
[2021-03-31] MEDS: TRAMADOL HCL 50 MG TABLET PO PRN (04:23)
[2021-03-31] MEDS: INSULIN HUMULIN R 100 UNIT/ML 3ML SQ SCH ×7 (05:46→20:57)
[2021-03-31] MEDS: Vitamin B Complex/Vit C/Folic Acid PO SCH (08:12)
[2021-03-31] MEDS: SODIUM BICARBONATE 650 MG TAB PO SCH ×2 (08:12→20:57)
[2021-03-31] MEDS: MORPHINE 2 MG SYG (2MG/1ML) IV PRN ×3 (08:13→22:23)
[2021-03-31] MEDS: ONDANSETRON HCL 4 MG/2 ML VIAL IVP PRN ×3 (08:13→22:23)
[2021-03-31 08:18] VITALS: BP 153/89
[2021-03-31] MEDS: INSULIN GLARGINE 100 UNITS/ML 10 ML VIAL SQ SCH (08:20)
[2021-03-31 11:42] VITALS: BP 159/95
[2021-03-31] MEDS ORDERED: AMLODIPINE BESYLATE 5 MG TAB PO SCH (13:45)
[2021-03-31] MEDS ORDERED: AMLO-257 PO (13:46)
[2021-03-31] MEDS ORDERED: AMYL1CAP61 PO (13:46)
[2021-03-31 16:00] VITALS: BP 154/91
[2021-03-31 19:49] VITALS: BP 150/92
[2021-04-01 00:53] VITALS: BP 159/86
[2021-04-01] MEDS: CEFTRIAXONE SODIUM 1 GM IV SCH (01:46)
[2021-04-01] MEDS: LACTULOSE 20 GM/30 ML UDCUP PO SCH (03:20)
[2021-04-01 04:42] LABS: HEMATOCRIT 23.5 % (42-54); MEAN CORPUSCULAR HEMOGLOBIN 30.3 pg (27.0-33.0); MEAN CORPUSCULAR HGB CONC 32.3 g/dL (32.0-36.0); MEAN CORPUSCULAR VOLUME 93.6 fL (79-99); RED BLOOD CELL COUNT(AUTO) 2.51 MIL/uL (4.50-6.20); RED CELL DISTRIBUTION WIDTH 14.5 % (11.0-15.5); WHITE BLOOD COUNT (AUTO) 5.7 K/uL (4.8-10.8)
[2021-04-01 04:52] LABS: CREATININE 1.3 mg/dL (0.5-1.5); POTASSIUM 5.3 mmol/L (3.5-5.1)
[2021-04-01 05:11] VITALS: BP 148/85
[2021-04-01] MEDS: INSULIN HUMULIN R 100 UNIT/ML 3ML SQ SCH ×4 (05:54→11:30)
[2021-04-01] MEDS: ONDANSETRON HCL 4 MG/2 ML VIAL IVP PRN (06:01)
[2021-04-01] MEDS: MORPHINE 2 MG SYG (2MG/1ML) IV PRN (06:02)
[2021-04-01 07:00] VITALS: BP 151/83
[2021-04-01] MEDS: Vitamin B Complex/Vit C/Folic Acid PO SCH (08:31)
[2021-04-01] MEDS: SODIUM BICARBONATE 650 MG TAB PO SCH (08:31)
[2021-04-01] MEDS: INSULIN GLARGINE 100 UNITS/ML 10 ML VIAL SQ SCH (09:26)
[2021-04-01 11:00] VITALS: BP 153/89
== END 2021-04-01 12:36 | disposition home or self-care (01) | DRG 690 ==
LOC: EDH 19:42 → EDHIP 19:43 → 4DH 03-25 23:52
PROVIDERS: ADMIT Internal Medicine; ATTEND Internal Medicine
PROC: 30233N1 Transfusion of Nonautologous Red Blood Cells into Peripheral Vein, Percutaneous Approach (ICD-10-PCS; principal; 2021-03-28)
DX: N39.0 Urinary tract infection, site not specified (principal); E87.1 Hypo-osmolality and hyponatremia; K86.1 Other chronic pancreatitis; E46 Unspecified protein-calorie malnutrition; N17.9 Acute kidney failure, unspecified; I13.0 Hypertensive heart and chronic kidney disease with heart failure and stage 1 through stage 4 chronic kidney disease, or unspecified chronic kidney disease; E11.65 Type 2 diabetes mellitus with hyperglycemia; E78.5 Hyperlipidemia, unspecified; E86.0 Dehydration; Z91.19 Patient's noncompliance with other medical treatment and regimen; Z89.511 Acquired absence of right leg below knee; Z89.512 Acquired absence of left leg below knee; Z88.8 Allergy status to other drugs, medicaments and biological substances; E11.51 Type 2 diabetes mellitus with diabetic peripheral angiopathy without gangrene; Z82.3 Family history of stroke; Z90.49 Acquired absence of other specified parts of digestive tract; F19.10 Other psychoactive substance abuse, uncomplicated; E87.5 Hyperkalemia; E11.621 Type 2 diabetes mellitus with foot ulcer; L97.509 Non-pressure chronic ulcer of other part of unspecified foot with unspecified severity; I50.9 Heart failure, unspecified; Z68.26 Body mass index [BMI] 26.0-26.9, adult; D63.8 Anemia in other chronic diseases classified elsewhere; F14.10 Cocaine abuse, uncomplicated; F17.210 Nicotine dependence, cigarettes, uncomplicated; I25.10 Atherosclerotic heart disease of native coronary artery without angina pectoris; N18.9 Chronic kidney disease, unspecified; E11.22 Type 2 diabetes mellitus with diabetic chronic kidney disease; Z79.4 Long term (current) use of insulin; Z83.3 Family history of diabetes mellitus
CPT/HCPCS: 36415; 36430; 36600; 71045; 74176; 80048; 80053; 80061; 80305; 81001; 82010; 82270; 82550; 82607; 82728; 82746; 82803; 82948; 83036; 83540; 83550; 83605; 83690; 83735; 83874; 83880; 84100; 84145; 84484; 85014; 85018; 85025; 85027; 85610; 86850; 86900; 86901; 86923; 87040; 87077; 87088; 87186; 93005; 97039; G0378; J0696; J1644; J1815; J2270; J2405; J3475; J3490; J7050; P9016; Q9967

== ENCOUNTER 2021-04-02 23:11 | Emergency (ER) | payer MEDICAID, OTHER ==
[~2021-04-02] VITALS: Ht 175.3 cm; Wt 72.6 kg
[~2021-04-02 23:11] MED LIST changes: +AMLO-257 PO; +AMYL1CAP61 PO; +CEFU500T67 PO
[2021-04-02 23:20] VITALS: BP 164/87
[2021-04-03] MEDS ORDERED: ONDANSETRON 4MG INJ IVP ONE (01:45)
[2021-04-03] MEDS ORDERED: MORPHINE 2 MG SYG IVP ONE (01:45)
[2021-04-03] MEDS ORDERED: METOCLOPRAMIDE 10 MG/2 ML VIAL IVP ONE (01:45)
[2021-04-03 01:54] LABS: BASOPHILS % (AUTO) 0.6 % (0.0-5.0); EOSINOPHILS % (AUTO) 2.2 % (0.0-8.0); LYMPHOCYTES % (AUTO) 20.8 % (21.0-51.0); MEAN CORPUSCULAR HEMOGLOBIN 30.6 pg (27.0-33.0); MEAN CORPUSCULAR HGB CONC 31.4 g/dL (32.0-36.0); MEAN CORPUSCULAR VOLUME 97.2 fL (79-99); PLATELET COUNT (AUTO) 297 K/uL (130-400); RED BLOOD CELL COUNT(AUTO) 2.88 MIL/uL (4.50-6.20); RED CELL DISTRIBUTION WIDTH 14.6 % (11.0-15.5)
[2021-04-03 02:16] LABS: ALANINE AMINOTRANSFERASE 66 U/L (12-78); ALBUMIN 1.8 g/dL (3.5-5.0); AMYLASE 29 U/L (25-115); ASPARTATE AMINOTRANSFERASE 34 U/L (10-37); BILIRUBIN,TOTAL 0.1 mg/dL (0.2-1.0); CARBON DIOXIDE 21 mmol/L (21-32); CHLORIDE 106 mmol/L (101-111); CREATININE 1.7 mg/dL (0.5-1.5); GLOMERULAR FILTR. RATE CALC 46 mL/min (>60); POTASSIUM 4.8 mmol/L (3.5-5.1); SODIUM SERUM 136 mmol/L (136-145); TOTAL PROTEIN, SERUM 6.2 g/dL (6.0-8.3); UREA NITROGEN, BLOOD 33 mg/dL (7-18)
[2021-04-03 02:18] LABS: GLUCOSE,RANDOM 423 mg/dL (70-105); LIPASE < 50 U/L (114-286)
[2021-04-03 02:26] VITALS: BP 148/70
[2021-04-03 02:34] LABS: APPEARANCE,URINE CLOUDY (CLEAR); BILIRUBIN,URINE Negative (NEGATIVE); COLOR,URINE Yellow (YELLOW); GLUCOSE, URINE (UA) >=1000 mg/dL (NEGATIVE); KETONES,URINE Negative (NEGATIVE); LEUKOCYTE ESTERASE ,URINE Moderate (NEGATIVE); NITRATE,URINE Negative (NEGATIVE); OCCULT BLOOD,URINE Moderate (NEGATIVE); PROTEIN,URINE >=1000 mg/dL (NEGATIVE); UROBILINOGEN,URINE 0.2 mg/dL (0.2-1.0)
[2021-04-03] MEDS ORDERED: INSULIN HUMULIN R 100 UNIT/ML 3ML ONE (02:54)
[2021-04-03] MEDS ORDERED: 0.9%NACL 50ML 50 ML IV ONE (02:57)
[2021-04-03 02:59] LABS: BACTERIA,URINE Few /HPF (None Seen); WBC,URINE >100 /HPF (0-1)
[2021-04-03 03:00] LABS: SQUAMOUS EPITHELIAL CELL,UR 0-2 /HPF (0-2)
[2021-04-03 03:54] VITALS: BP 173/86
[2021-04-03 05:52] VITALS: BP 143/71
[2021-04-03 06:56] VITALS: BP 179/87
[2021-04-03 08:43] VITALS: BP 134/96
== END 2021-04-03 08:45 | disposition home or self-care (01) ==
LOC: EDH 23:52
DX: E11.65 Type 2 diabetes mellitus with hyperglycemia (principal); E78.5 Hyperlipidemia, unspecified; G89.29 Other chronic pain; I10 Essential (primary) hypertension; F17.200 Nicotine dependence, unspecified, uncomplicated; E11.43 Type 2 diabetes mellitus with diabetic autonomic (poly)neuropathy; Z79.899 Other long term (current) drug therapy; K31.84 Gastroparesis; Z79.4 Long term (current) use of insulin
CPT/HCPCS: 36415; 80053; 81001; 82150; 82948; 83605; 83690; 84484; 85025; 87088; 96374; 96375; 99285; J1815; J2405; J2765

== ENCOUNTER 2021-04-09 21:00 | Emergency (ER) | payer MEDICAID, OTHER ==
[2021-04-09 21:58] VITALS: BP 149/88
[2021-04-09 22:54] LABS: BASOPHILS % (AUTO) 0.9 % (0.0-5.0); EOSINOPHILS % (AUTO) 1.5 % (0.0-8.0); HEMATOCRIT 25.5 % (42-54); LYMPHOCYTES % (AUTO) 17.5 % (21.0-51.0); MEAN CORPUSCULAR HEMOGLOBIN 30.6 pg (27.0-33.0); MEAN CORPUSCULAR HGB CONC 33.3 g/dL (32.0-36.0); MEAN CORPUSCULAR VOLUME 91.7 fL (79-99); MONOCYTES % (AUTO) 3.5 % (3.0-13.0); NEUTROPHILS % (AUTO) 76.2 % (40.0-77.0); PLATELET COUNT (AUTO) 281 K/uL (130-400); RED BLOOD CELL COUNT(AUTO) 2.78 MIL/uL (4.50-6.20); RED CELL DISTRIBUTION WIDTH 13.6 % (11.0-15.5); WHITE BLOOD COUNT (AUTO) 5.4 K/uL (4.8-10.8)
[2021-04-09] MEDS ORDERED: ONDANSETRON ODT 4MG TAB SL ONE (23:00)
[2021-04-09 23:12] LABS: ALANINE AMINOTRANSFERASE 44 U/L (12-78); ALBUMIN 1.5 g/dL (3.5-5.0); ASPARTATE AMINOTRANSFERASE 13 U/L (10-37); BILIRUBIN,TOTAL 0.1 mg/dL (0.2-1.0); CARBON DIOXIDE 24 mmol/L (21-32); CHLORIDE 102 mmol/L (101-111); GLOMERULAR FILTR. RATE CALC 38 mL/min (>60); POTASSIUM 4.6 mmol/L (3.5-5.1); SODIUM SERUM 133 mmol/L (136-145); TOTAL PROTEIN, SERUM 5.9 g/dL (6.0-8.3); UREA NITROGEN, BLOOD 28 mg/dL (7-18)
[2021-04-09 23:14] LABS: GLUCOSE,RANDOM 464 mg/dL (70-105)
[2021-04-09 23:15] LABS: LIPASE < 50 U/L (114-286)
[2021-04-09] MEDS ORDERED: FAMOTIDINE 20MG VIAL IV ONE (23:24)
[2021-04-09] MEDS ORDERED: INSULIN HUMULIN R 100 UNIT/ML 3ML SQ ONE (23:45)
[2021-04-09] MEDS ORDERED: DiphenhydrAMINE HCL 50 MG/ML VIAL IM ONE (23:45)
[2021-04-09] MEDS ORDERED: DiphenhydrAMINE HCL 50 MG/ML VIAL ONE (23:52)
[2021-04-09] MEDS ORDERED: INSULIN HUMULIN R 100 UNIT/ML 3ML ONE (23:53)
== END 2021-04-10 02:05 | disposition home or self-care (01) ==
LOC: EDH 21:00
DX: G89.29 Other chronic pain (principal); R10.9 Unspecified abdominal pain; R11.2 Nausea with vomiting, unspecified; R50.9 Fever, unspecified; E11.9 Type 2 diabetes mellitus without complications; E78.00 Pure hypercholesterolemia, unspecified; I10 Essential (primary) hypertension; F17.200 Nicotine dependence, unspecified, uncomplicated; Z88.6 Allergy status to analgesic agent; Z79.899 Other long term (current) drug therapy
CPT/HCPCS: 36415; 80053; 83690; 85025; 96372 ×2; 96374; 99284; J1200; J1815; S0028; J3490

== ENCOUNTER 2021-04-27 00:09 | Inpatient (IN) | payer OTHER ==
[~2021-04-27] VITALS: Ht 172.7 cm; Wt 77.1 kg
[2021-04-27] VITALS (7 sets, daily range): BP systolic 117–176; BP diastolic 74–86
[2021-04-27] MEDS ORDERED: ONDANSETRON 4MG INJ IVP ONE (01:00)
[2021-04-27 01:01] LABS: BASOPHILS % (AUTO) 0.6 % (0.0-5.0); EOSINOPHILS % (AUTO) 0.9 % (0.0-8.0); HEMATOCRIT 23.6 % (42-54); MEAN CORPUSCULAR HEMOGLOBIN 30.6 pg (27.0-33.0); MEAN CORPUSCULAR HGB CONC 31.8 g/dL (32.0-36.0); MEAN CORPUSCULAR VOLUME 96.3 fL (79-99); MONOCYTES % (AUTO) 5.2 % (3.0-13.0); NEUTROPHILS % (AUTO) 78.9 % (40.0-77.0); PLATELET COUNT (AUTO) 215 K/uL (130-400); RED BLOOD CELL COUNT(AUTO) 2.45 MIL/uL (4.50-6.20); RED CELL DISTRIBUTION WIDTH 14.5 % (11.0-15.5); WHITE BLOOD COUNT (AUTO) 9.4 K/uL (4.8-10.8)
[2021-04-27 01:34] LABS: ALBUMIN 1.8 g/dL (3.5-5.0); CREATININE 1.4 mg/dL (0.5-1.5)
[2021-04-27 01:40] LABS: BILIRUBIN,TOTAL 0.2 mg/dL (0.2-1.0); TOTAL PROTEIN, SERUM 6.1 g/dL (6.0-8.3)
[2021-04-27] MEDS ORDERED: SODIUM BICARB 8.4% 50ML SYRINGE IVP ONE (02:00)
[2021-04-27] MEDS ORDERED: CALCIUM GLUC 1GM VIAL 1 GM in 0.9%NACL 100ML 100 ML IV ONE (02:00)
[2021-04-27] MEDS ORDERED: DEXTROSE 50%-WATER 50 ML DISP.SYRIN IV ONE (02:00)
[2021-04-27] MEDS ORDERED: KAYEXALATE 15GM/60ML PO NR (02:00)
[2021-04-27] MEDS ORDERED: INSULIN HUMULIN R 100 UNIT/ML 3ML IV ONE (02:00)
[2021-04-27] MEDS ORDERED: FUROSEMIDE 40 MG TABLET PO ONE (02:00)
[2021-04-27 02:42] LABS: APPEARANCE,URINE CLOUDY (CLEAR); BILIRUBIN,URINE NEGATIVE (NEGATIVE); COLOR,URINE YELLOW (YELLOW); GLUCOSE, URINE (UA) 100 mg/dL (NEGATIVE); KETONES,URINE NEGATIVE (NEGATIVE); LEUKOCYTE ESTERASE ,URINE MODERATE (NEGATIVE); NITRATE,URINE NEGATIVE (NEGATIVE); OCCULT BLOOD,URINE MODERATE (NEGATIVE); PROTEIN,URINE >=300 mg/dL (NEGATIVE); UROBILINOGEN,URINE 0.2 mg/dL (0.2-1.0)
[2021-04-27 02:52] LABS: BACTERIA,URINE Many /HPF (None Seen); RBC,URINE >100 /HPF (0-1); WBC,URINE TNTC /HPF (0-1)
[2021-04-27] MEDS ORDERED: CALCIUM GLUC 1GM VIAL IV ONE (03:02)
[2021-04-27] MEDS ORDERED: 0.9%NACL 100ML 100 ML ONE (03:02)
[2021-04-27] MEDS ORDERED: SODIUM BICARB 50MEQ 50ML VIAL 50 ML ONE (03:11)
[2021-04-27] MEDS ORDERED: ALBUTEROL 0.083% 2.5 MG/3 ML INH IH ONE (03:36)
[2021-04-27] MEDS: MORPHINE 4 MG SYG IV PRN ×4 (05:15→23:02)
[2021-04-27 06:07] LABS: CREATININE 1.3 mg/dL (0.5-1.5); POTASSIUM 5.3 mmol/L (3.5-5.1)
[2021-04-27] MEDS ORDERED: 0.9%NACL 1000ML 1,000 ML IV SCH (07:00)
[2021-04-27] MEDS: INSULIN HUMULIN R 100 UNIT/ML 3ML SQ SCH ×4 (07:30→20:34)
[2021-04-27 07:31] LABS: HEMOGLOBIN A1C 8.3 % (4.0-6.0)
[2021-04-27] MEDS ORDERED: ONDANSETRON 4MG INJ ONE (08:27)
[2021-04-27] MEDS: FAMOTIDINE 20MG VIAL IV SCH (08:30)
[2021-04-27 14:06] LABS: INR 0.97 (0.85-1.15); PROTHROMBIN TIME 10.6 SEC (9.6-11.6)
[2021-04-27 14:44] LABS: CREATININE 1.3 mg/dL (0.5-1.5); POTASSIUM 5.2 mmol/L (3.5-5.1)
[2021-04-27] MEDS ORDERED: NA ZIRCON CYCLOSIL(LOKELMA 10GM) PO SCH (18:25)
[2021-04-27] MEDS: CEFEPIME HCL 1 GM VIAL IVP SCH (18:45)
[2021-04-28] VITALS (9 sets, daily range): BP systolic 115–139; BP diastolic 71–79
[2021-04-28] MEDS: ALBUTEROL 0.083% 2.5 MG/3 ML INH IH SCH ×5 (01:33→23:47)
[2021-04-28] MEDS: CEFEPIME HCL 1 GM VIAL IVP SCH ×4 (01:50→20:40)
[2021-04-28] MEDS: MORPHINE 4 MG SYG IV PRN ×5 (03:25→20:43)
[2021-04-28] MEDS: INSULIN HUMULIN R 100 UNIT/ML 3ML SQ SCH ×4 (07:18→20:41)
[2021-04-28 08:11] LABS: BASOPHILS % (AUTO) 0.5 % (0.0-5.0); EOSINOPHILS % (AUTO) 3.7 % (0.0-8.0); HEMATOCRIT 21.3 % (42-54); MEAN CORPUSCULAR HEMOGLOBIN 30.6 pg (27.0-33.0); MEAN CORPUSCULAR VOLUME 98.6 fL (79-99); MONOCYTES % (AUTO) 5.1 % (3.0-13.0); NEUTROPHILS % (AUTO) 70.5 % (40.0-77.0); PLATELET COUNT (AUTO) 212 K/uL (130-400); RED BLOOD CELL COUNT(AUTO) 2.16 MIL/uL (4.50-6.20); RED CELL DISTRIBUTION WIDTH 14.8 % (11.0-15.5); WHITE BLOOD COUNT (AUTO) 5.5 K/uL (4.8-10.8)
[2021-04-28] MEDS: LIPASE/PROTEASE/AMYLASE 5000/17000/24000 PO SCH ×3 (08:12→16:19)
[2021-04-28 08:33] LABS: ALBUMIN 1.5 g/dL (3.5-5.0); BILIRUBIN,TOTAL 0.1 mg/dL (0.2-1.0); CREATININE 1.2 mg/dL (0.5-1.5); POTASSIUM 5.4 mmol/L (3.5-5.1); TOTAL PROTEIN, SERUM 5.2 g/dL (6.0-8.3)
[2021-04-28] MEDS: AMLODIPINE 5 MG TAB PO SCH (10:01)
[2021-04-28] MEDS: FAMOTIDINE 20MG VIAL IV SCH (10:01)
[2021-04-28] MEDS ORDERED: KAYEXALATE 15GM/60ML PO ONE (11:00)
[2021-04-28 12:07] LABS: HEMATOCRIT 20.4 % (42-54)
[2021-04-28] MEDS ORDERED: KAYEXALATE 15GM/60ML ONE (12:33)
[2021-04-28 12:35] LABS: % IRON SATURATION 4.5 % (30-44)
[2021-04-28 15:38] LABS: APPEARANCE,URINE CLOUDY (CLEAR); BILIRUBIN,URINE NEGATIVE (NEGATIVE); COLOR,URINE YELLOW (YELLOW); GLUCOSE, URINE (UA) 100 mg/dL (NEGATIVE); KETONES,URINE NEGATIVE (NEGATIVE); LEUKOCYTE ESTERASE ,URINE LARGE (NEGATIVE); NITRATE,URINE NEGATIVE (NEGATIVE); OCCULT BLOOD,URINE MODERATE (NEGATIVE); PH,URINE 5.5 (5.0-8.0); PROTEIN,URINE >=300 mg/dL (NEGATIVE); UROBILINOGEN,URINE 0.2 mg/dL (0.2-1.0)
[2021-04-28 15:54] LABS: WBC,URINE >100 /HPF (0-1)
[2021-04-28 15:55] LABS: BACTERIA,URINE Rare /HPF (None Seen); SQUAMOUS EPITHELIAL CELL,UR Rare /HPF (0-2)
[2021-04-28] MEDS: SODIUM BICARBONATE 650 MG TAB PO SCH (20:40)
[2021-04-28] MEDS: DOXYCYCLINE HYCLATE 100 MG TABLET PO SCH (20:40)
[2021-04-29] VITALS: BP 128/79
[2021-04-29] MEDS: MORPHINE 4 MG SYG IV PRN ×4 (02:22→17:28)
[2021-04-29 04:00] VITALS: BP 124/80
[2021-04-29] MEDS: CEFEPIME HCL 1 GM VIAL IVP SCH ×2 (05:25→15:18)
[2021-04-29 05:30] LABS: CREATININE 1.2 mg/dL (0.5-1.5); POTASSIUM 5.6 mmol/L (3.5-5.1)
[2021-04-29 05:59] LABS: HEMATOCRIT 24.7 % (42-54); MEAN CORPUSCULAR HEMOGLOBIN 30.4 pg (27.0-33.0); MEAN CORPUSCULAR HGB CONC 32.4 g/dL (32.0-36.0); MEAN CORPUSCULAR VOLUME 93.9 fL (79-99); RED BLOOD CELL COUNT(AUTO) 2.63 MIL/uL (4.50-6.20); RED CELL DISTRIBUTION WIDTH 14.6 % (11.0-15.5); WHITE BLOOD COUNT (AUTO) 4.7 K/uL (4.8-10.8)
[2021-04-29] MEDS: INSULIN HUMULIN R 100 UNIT/ML 3ML SQ SCH ×3 (06:28→16:30)
[2021-04-29] MEDS: ALBUTEROL 0.083% 2.5 MG/3 ML INH IH SCH ×4 (06:48→23:50)
[2021-04-29] MEDS: LIPASE/PROTEASE/AMYLASE 5000/17000/24000 PO SCH ×3 (06:51→17:28)
[2021-04-29 07:56] VITALS: BP 130/67
[2021-04-29] MEDS ORDERED: KAYEXALATE 15GM/60ML PO SCH (09:00)
[2021-04-29] MEDS: AMLODIPINE 5 MG TAB PO SCH (10:16)
[2021-04-29] MEDS: SODIUM BICARBONATE 650 MG TAB PO SCH (10:16)
[2021-04-29] MEDS: FAMOTIDINE 20MG VIAL IV SCH (10:16)
[2021-04-29] MEDS: DOXYCYCLINE HYCLATE 100 MG TABLET PO SCH (10:16)
[2021-04-29 11:28] VITALS: BP 157/87
[2021-04-29 16:30] VITALS: BP 142/81
[2021-04-29] MEDS ORDERED: CEPH500B PO (17:02)
[2021-04-29] MEDS ORDERED: DOXY100T2 PO (17:07)
[2021-04-29] MEDS ORDERED: SODI650T PO (17:33)
[2021-04-30] MEDS: ALBUTEROL 0.083% 2.5 MG/3 ML INH IH SCH (07:54)
[2021-05-01 21:08] LABS: CHLAMYDIA DNA N.A.AMPLIFY Negative (Negative)
== END 2021-04-30 13:00 | disposition home or self-care (01) | DRG 683 ==
LOC: EDH 00:09 → OBSVTOIN 00:10 → EDHIP 00:10 → 3AH 04-28 07:54
PROVIDERS: ADMIT Internal Medicine; ATTEND Internal Medicine
PROC: 02HV33Z Insertion of Infusion Device into Superior Vena Cava, Percutaneous Approach (ICD-10-PCS; 2021-04-27)
PROC: 30233N1 Transfusion of Nonautologous Red Blood Cells into Peripheral Vein, Percutaneous Approach (ICD-10-PCS; principal; 2021-04-28)
DX: N17.9 Acute kidney failure, unspecified (principal); E87.2 Acidosis; K86.1 Other chronic pancreatitis; R45.851 Suicidal ideations; E87.5 Hyperkalemia; N13.6 Pyonephrosis; N45.1 Epididymitis; E11.21 Type 2 diabetes mellitus with diabetic nephropathy; D64.9 Anemia, unspecified; N25.89 Other disorders resulting from impaired renal tubular function; E11.51 Type 2 diabetes mellitus with diabetic peripheral angiopathy without gangrene; E78.00 Pure hypercholesterolemia, unspecified; E78.5 Hyperlipidemia, unspecified; E87.6 Hypokalemia; I10 Essential (primary) hypertension; I25.10 Atherosclerotic heart disease of native coronary artery without angina pectoris; K59.00 Constipation, unspecified; Z76.5 Malingerer [conscious simulation]; Z91.19 Patient's noncompliance with other medical treatment and regimen; Z89.512 Acquired absence of left leg below knee; Z89.511 Acquired absence of right leg below knee; Z83.3 Family history of diabetes mellitus; Z82.3 Family history of stroke; Z82.49 Family history of ischemic heart disease and other diseases of the circulatory system
CPT/HCPCS: 36415; 36430; 71045; 74176; 76870; 80048; 80053; 81001; 82728; 82948; 83036; 83540; 83550; 83605; 83690; 83880; 84132; 85014; 85018; 85025; 85027; 85610; 86140; 86850; 86900; 86901; 86923; 87040; 87077; 87088; 87186; 87486; 87797; 93970; 94640; 94664; C1894; G0378; J0610; J0692; J1815; J2270; J2405; J3490; J7030; J7070; P9016

== ENCOUNTER 2021-07-03 20:09 | Inpatient (IN) | payer MEDICAID, OTHER ==
[~2021-07-03] VITALS: Ht 157.5 cm; Wt 55.9 kg
[~2021-07-03 20:09] MED LIST changes: -CEFU500T67 PO; +CEPH500B PO; +DOXY100T2 PO; +SODI650T PO
[2021-07-03 20:16] VITALS: BP 102/65
[2021-07-03 20:35] VITALS: BP 83/44
[2021-07-03 20:39] VITALS: BP 93/53
[2021-07-03 21:00] LABS: BASOPHILS % (AUTO) 0.1 % (0.0-5.0); HEMATOCRIT 25.1 % (42-54); LYMPHOCYTES % (AUTO) 4.4 % (21.0-51.0); MEAN CORPUSCULAR HEMOGLOBIN 29.4 pg (27.0-33.0); MEAN CORPUSCULAR HGB CONC 33.5 g/dL (32.0-36.0); MEAN CORPUSCULAR VOLUME 87.8 fL (79-99); MONOCYTES % (AUTO) 1.4 % (3.0-13.0); NEUTROPHILS % (AUTO) 93.6 % (40.0-77.0); PLATELET COUNT (AUTO) 274 K/uL (130-400); RED BLOOD CELL COUNT(AUTO) 2.86 MIL/uL (4.50-6.20); RED CELL DISTRIBUTION WIDTH 14.4 % (11.0-15.5); WHITE BLOOD COUNT (AUTO) 13.7 K/uL (4.8-10.8)
[2021-07-03 21:16] LABS: ALBUMIN 0.8 g/dL (3.5-5.0); BILIRUBIN,TOTAL 0.2 mg/dL (0.2-1.0); CREATININE 1.8 mg/dL (0.5-1.5); TOTAL PROTEIN, SERUM 5.5 g/dL (6.0-8.3)
[2021-07-03] MEDS ORDERED: POTASSIUM BICARB/CIT AC 25 MEQ TABLET.EFF PO ONE (21:30)
[2021-07-03 21:58] VITALS: BP 104/51
[2021-07-03] MEDS ORDERED: 0.9%NACL 1000ML 1,000 ML IV ONE (22:00)
[2021-07-03] MEDS ORDERED: INSULIN HUMULIN R 100 UNIT/ML 3ML IV ONE (22:00)
[2021-07-03 22:45] VITALS: BP 111/67
[2021-07-03] MEDS ORDERED: LIDOCAINE HCL-MPF 1% 2ML VIAL IV PRN (23:30)
[2021-07-03] MEDS ORDERED: MORPHINE 2 MG SYG IV PRN (23:30)
[2021-07-03] MEDS ORDERED: POTASSIUM CHLORIDE 20MEQ/100ML 100 ML IV PRN (23:30)
[2021-07-03 23:46] LABS: INR 1.29 (0.85-1.15); PROTHROMBIN TIME 13.7 SEC (9.6-11.6)
[2021-07-03 23:48] VITALS: BP 106/70
[2021-07-03 23:48] LABS: PARTIAL THROMBOPLASTIN TIME 32.1 SEC (26.3-35.5)
[2021-07-03] MEDS: HYDROMORPHONE 1 MG INJ IV PRN (23:49)
[2021-07-04] VITALS (12 sets, daily range): BP systolic 98–130; BP diastolic 60–80
[2021-07-04] MEDS ORDERED: LACTATED RINGERS 1000ML 1,000 ML IV SCH
[2021-07-04] MEDS: 0.9%NACL 1000ML 1,000 ML IV SCH ×2 (02:26→09:59)
[2021-07-04 03:45] LABS: ALBUMIN 0.8 g/dL (3.5-5.0); MAGNESIUM 1.3 mg/dL (1.80-2.40); PHOSPHORUS 2.4 mg/dL (2.5-4.9)
[2021-07-04 03:50] LABS: POTASSIUM 2.8 mmol/L (3.5-5.1)
[2021-07-04 03:51] LABS: BASOPHILS % (AUTO) 0.1 % (0.0-5.0); HEMATOCRIT 23.8 % (42-54); LYMPHOCYTES % (AUTO) 4.4 % (21.0-51.0); MEAN CORPUSCULAR HEMOGLOBIN 28.9 pg (27.0-33.0); MEAN CORPUSCULAR HGB CONC 33.2 g/dL (32.0-36.0); MEAN CORPUSCULAR VOLUME 87.2 fL (79-99); NEUTROPHILS % (AUTO) 92.7 % (40.0-77.0); PLATELET COUNT (AUTO) 274 K/uL (130-400); RED BLOOD CELL COUNT(AUTO) 2.73 MIL/uL (4.50-6.20); RED CELL DISTRIBUTION WIDTH 14.3 % (11.0-15.5); WHITE BLOOD COUNT (AUTO) 15.9 K/uL (4.8-10.8)
[2021-07-04] MEDS: HYDROMORPHONE 1 MG INJ IV PRN ×3 (04:00→17:33)
[2021-07-04] MEDS: ZOSYN 3.375GM+NS 50ML 50 ML IV SCH ×3 (05:26→21:55)
[2021-07-04] MEDS: MAGNESIUM OXIDE 400 MG TABLET PO SCH (06:19)
[2021-07-04] MEDS ORDERED: KCL 20 MEQ ERTAB PO ONE (06:30)
[2021-07-04] MEDS ORDERED: INSULIN HUMULIN R 100 UNIT/ML 3ML SQ SCH (07:30)
[2021-07-04 09:10] LABS: CREATININE 1.7 mg/dL (0.5-1.5); POTASSIUM 3.2 mmol/L (3.5-5.1)
[2021-07-04] MEDS: FAMOTIDINE 20MG VIAL IV SCH ×2 (09:59→21:55)
[2021-07-04] MEDS: HEPARIN 5,000 UNIT VIAL SQ SCH ×3 (09:59→22:07)
[2021-07-04] MEDS: INSULIN HUMULIN R 100 UNIT/ML 3ML SQ SCH ×4 (09:59→21:30)
[2021-07-04 10:01] LABS: INR 1.43 (0.85-1.15); PROTHROMBIN TIME 15.1 SEC (9.6-11.6)
[2021-07-04 10:02] LABS: PARTIAL THROMBOPLASTIN TIME 36.1 SEC (26.3-35.5)
[2021-07-04 10:45] LABS: ABG BASE EXCESS -8.1 mmol/L (-2.0-3.0); ABG OXYGEN SATURATION 87.2 % (95.0-99.0); ABG PCO2 34 mmHg (35-48)
[2021-07-04] MEDS ORDERED: KCL 20 MEQ ERTAB PO SCH (11:00)
[2021-07-04] MEDS ORDERED: MAGNESIUM OXIDE 400 MG TABLET PO SCH (11:00)
[2021-07-04] MEDS: MAGNESIUM 2GM PREMIX 50ML 50 ML IV PRN (11:54)
[2021-07-04] MEDS ORDERED: LACTATED RINGERS 1000ML 2,000 ML IV ONE (13:56)
[2021-07-04 14:00] LABS: CREATININE 1.8 mg/dL (0.5-1.5); POTASSIUM 3.2 mmol/L (3.5-5.1)
[2021-07-04] MEDS ORDERED: LACTATED RINGERS 1000ML IV SCH (14:00)
[2021-07-04] MEDS: LACTATED RINGERS 1000ML 1,000 ML IV SCH (15:24)
[2021-07-04] MEDS ORDERED: INSULIN GLARGINE 100 UNITS/ML 10 ML VIAL SQ SCH ×2 (21:00)
[2021-07-05] VITALS (7 sets, daily range): BP systolic 103–134; BP diastolic 59–81
[2021-07-05] MEDS: INSULIN HUMULIN R 100 UNIT/ML 3ML SQ SCH ×8 (01:30→21:00)
[2021-07-05] MEDS: HYDROMORPHONE 1 MG INJ IV PRN ×2 (04:23→08:51)
[2021-07-05] MEDS: ZOSYN 3.375GM+NS 50ML 50 ML IV SCH ×3 (05:04→21:39)
[2021-07-05] MEDS: MAGNESIUM OXIDE 400 MG TABLET PO SCH (06:30)
[2021-07-05 06:34] LABS: MEAN CORPUSCULAR HEMOGLOBIN 29.3 pg (27.0-33.0); MEAN CORPUSCULAR HGB CONC 33.8 g/dL (32.0-36.0); MEAN CORPUSCULAR VOLUME 86.6 fL (79-99); RED BLOOD CELL COUNT(AUTO) 2.39 MIL/uL (4.50-6.20); RED CELL DISTRIBUTION WIDTH 14.2 % (11.0-15.5); WHITE BLOOD COUNT (AUTO) 10.9 K/uL (4.8-10.8)
[2021-07-05 06:51] LABS: HEMATOCRIT 20.7 % (42-54)
[2021-07-05 07:48] LABS: CREATININE 1.5 mg/dL (0.5-1.5); MAGNESIUM 1.6 mg/dL (1.80-2.40); POTASSIUM 4.4 mmol/L (3.5-5.1)
[2021-07-05] MEDS: FAMOTIDINE 20MG VIAL IV SCH ×2 (08:33→21:39)
[2021-07-05] MEDS: MAGNESIUM 2GM PREMIX 50ML 50 ML IV PRN (08:35)
[2021-07-05] MEDS: HEPARIN 5,000 UNIT VIAL SQ SCH ×3 (08:50→21:43)
[2021-07-05] MEDS: LACTATED RINGERS 1000ML 1,000 ML IV SCH ×3 (11:47→18:45)
[2021-07-05] MEDS: ACETAMINOPHEN 325 MG TAB PO PRN (16:32)
[2021-07-05] MEDS: ONDANSETRON 4MG INJ IV PRN (16:37)
[2021-07-05] MEDS ORDERED: TRAMADOL HCL 50 MG TABLET PO SCH (17:00)
[2021-07-05] MEDS ORDERED: DEXTROSE 5%-WATER 1,000 ML IV SCH (19:42)
[2021-07-05] MEDS ORDERED: INSULIN GLARGINE 100 UNITS/ML 10 ML VIAL SQ SCH (21:00)
[2021-07-06 04:00] VITALS: BP 116/69
[2021-07-06] MEDS: ZOSYN 3.375GM+NS 50ML 50 ML IV SCH ×3 (04:40→19:23)
[2021-07-06] MEDS: TRAMADOL HCL 50 MG TABLET PO PRN ×3 (04:44→19:24)
[2021-07-06] MEDS: LACTATED RINGERS 1000ML 1,000 ML IV SCH (05:51)
[2021-07-06] MEDS: INSULIN HUMULIN R 100 UNIT/ML 3ML SQ SCH ×7 (06:09→19:24)
[2021-07-06 07:53] VITALS: BP 120/73
[2021-07-06] MEDS: FAMOTIDINE 20MG VIAL IV SCH ×2 (09:00→19:23)
[2021-07-06] MEDS: HEPARIN 5,000 UNIT VIAL SQ SCH ×2 (09:00→13:53)
[2021-07-06 12:00] VITALS: BP 115/79
[2021-07-06] MEDS: ONDANSETRON 4MG INJ IV PRN (13:45)
[2021-07-06 16:00] VITALS: BP 109/79
[2021-07-06 20:00] VITALS: BP 114/78
[2021-07-06 23:34] VITALS: BP 106/65
[2021-07-07] MEDS: LACTATED RINGERS 1000ML 1,000 ML IV SCH ×3 (01:06→21:00)
[2021-07-07] MEDS: ZOSYN 3.375GM+NS 50ML 50 ML IV SCH ×3 (03:17→19:16)
[2021-07-07] MEDS: TRAMADOL HCL 50 MG TABLET PO PRN ×2 (03:25→08:49)
[2021-07-07 03:37] VITALS: BP 116/71
[2021-07-07 04:14] LABS: MEAN CORPUSCULAR HEMOGLOBIN 28.6 pg (27.0-33.0); MEAN CORPUSCULAR HGB CONC 32.7 g/dL (32.0-36.0); MEAN CORPUSCULAR VOLUME 87.3 fL (79-99); NEUTROPHILS % (AUTO) 92.9 % (40.0-77.0); PLATELET COUNT (AUTO) 177 K/uL (130-400); RED BLOOD CELL COUNT(AUTO) 2.52 MIL/uL (4.50-6.20); RED CELL DISTRIBUTION WIDTH 14.6 % (11.0-15.5); WHITE BLOOD COUNT (AUTO) 9.3 K/uL (4.8-10.8)
[2021-07-07 04:15] LABS: BASOPHILS % (AUTO) 0.1 % (0.0-5.0); LYMPHOCYTES % (AUTO) 5.1 % (21.0-51.0); MONOCYTES % (AUTO) 1.4 % (3.0-13.0)
[2021-07-07 04:39] LABS: BILIRUBIN,TOTAL 0.2 mg/dL (0.2-1.0); CREATININE 1.4 mg/dL (0.5-1.5); POTASSIUM 3.8 mmol/L (3.5-5.1); TOTAL PROTEIN, SERUM 4.7 g/dL (6.0-8.3)
[2021-07-07 04:40] LABS: % IRON SATURATION 42.5 % (30-44)
[2021-07-07 05:00] LABS: ALBUMIN 0.6 g/dL (3.5-5.0)
[2021-07-07] MEDS: INSULIN HUMULIN R 100 UNIT/ML 3ML SQ SCH ×7 (05:56→20:13)
[2021-07-07 08:00] VITALS: BP 131/78
[2021-07-07] MEDS: FAMOTIDINE 20MG VIAL IV SCH ×2 (08:42→19:16)
[2021-07-07] MEDS: ONDANSETRON 4MG INJ IV PRN (08:49)
[2021-07-07] MEDS ORDERED: PHARMACY COMMUNICATION MISC SCH (11:00)
[2021-07-07] MEDS ORDERED: COMPOUND IV MISC 1 EACH IVSOLN MISC PRN (11:30)
[2021-07-07] MEDS ORDERED: MORPHINE 2 MG SYG IVP SCH (11:30)
[2021-07-07 12:00] VITALS: BP 104/69
[2021-07-07] MEDS ORDERED: LORAZEPAM 2 MG/ML 1 ML VIAL IVP SCH (12:00)
[2021-07-07] MEDS: LIPASE/PROTEASE/AMYLASE 5000/17000/24000 PO SCH ×2 (12:48→17:47)
[2021-07-07] MEDS: IRON SUCROSE COMPLEX 100 MG in 0.9%NACL 50ML 50 ML IV SCH (12:48)
[2021-07-07 16:00] VITALS: BP 114/73
[2021-07-07] MEDS ORDERED: DEXTROSE 50%-WATER 50 ML DISP.SYRIN IV ONE (19:59)
[2021-07-07 20:00] VITALS: BP 134/82
[2021-07-08] VITALS (7 sets, daily range): BP systolic 118–155; BP diastolic 80–102
[2021-07-08] MEDS ORDERED: DEXTROSE 5%-WATER 1,000 ML IV SCH (00:30)
[2021-07-08] MEDS: DEXTROSE 5 % AND 0.9 % NACL 1,000 ML IV SCH ×2 (01:55→15:39)
[2021-07-08] MEDS: ZOSYN 3.375GM+NS 50ML 50 ML IV SCH (03:40)
[2021-07-08] MEDS: TRAMADOL HCL 50 MG TABLET PO PRN ×3 (04:33→20:17)
[2021-07-08] MEDS: INSULIN HUMULIN R 100 UNIT/ML 3ML SQ SCH ×4 (05:22→20:17)
[2021-07-08 06:32] LABS: EOSINOPHILS % (AUTO) 0.3 % (0.0-8.0); HEMATOCRIT 23.3 % (42-54); LYMPHOCYTES % (AUTO) 7.9 % (21.0-51.0); MEAN CORPUSCULAR HEMOGLOBIN 28.6 pg (27.0-33.0); MEAN CORPUSCULAR HGB CONC 33.5 g/dL (32.0-36.0); MEAN CORPUSCULAR VOLUME 85.3 fL (79-99); MONOCYTES % (AUTO) 2.3 % (3.0-13.0); NEUTROPHILS % (AUTO) 88.9 % (40.0-77.0); PLATELET COUNT (AUTO) 138 K/uL (130-400); RED BLOOD CELL COUNT(AUTO) 2.73 MIL/uL (4.50-6.20); RED CELL DISTRIBUTION WIDTH 15.3 % (11.0-15.5); WHITE BLOOD COUNT (AUTO) 6.6 K/uL (4.8-10.8)
[2021-07-08 06:41] LABS: CREATININE 1.4 mg/dL (0.5-1.5); POTASSIUM 3.6 mmol/L (3.5-5.1)
[2021-07-08] MEDS ORDERED: FAMOTIDINE 20MG TAB ONE (08:50)
[2021-07-08] MEDS: LIPASE/PROTEASE/AMYLASE 5000/17000/24000 PO SCH ×3 (10:01→15:41)
[2021-07-08] MEDS: FAMOTIDINE 20MG VIAL IV SCH ×2 (10:15→20:17)
[2021-07-08] MEDS: IRON SUCROSE COMPLEX 100 MG in 0.9%NACL 50ML 50 ML IV SCH (10:23)
[2021-07-08] MEDS: ONDANSETRON 4MG INJ IV PRN (20:40)
[2021-07-09] VITALS (7 sets, daily range): BP systolic 109–151; BP diastolic 72–94
[2021-07-09] MEDS: DEXTROSE 5 % AND 0.9 % NACL 1,000 ML IV SCH (03:25)
[2021-07-09] MEDS: TRAMADOL HCL 50 MG TABLET PO PRN ×3 (03:26→20:23)
[2021-07-09] MEDS: INSULIN HUMULIN R 100 UNIT/ML 3ML SQ SCH ×4 (06:18→20:23)
[2021-07-09 06:23] LABS: EOSINOPHILS % (AUTO) 0.4 % (0.0-8.0); HEMATOCRIT 21.1 % (42-54); LYMPHOCYTES % (AUTO) 12.8 % (21.0-51.0); MEAN CORPUSCULAR HEMOGLOBIN 29.1 pg (27.0-33.0); MEAN CORPUSCULAR HGB CONC 32.2 g/dL (32.0-36.0); MEAN CORPUSCULAR VOLUME 90.2 fL (79-99); NEUTROPHILS % (AUTO) 83.4 % (40.0-77.0); PLATELET COUNT (AUTO) 115 K/uL (130-400); RED BLOOD CELL COUNT(AUTO) 2.34 MIL/uL (4.50-6.20); RED CELL DISTRIBUTION WIDTH 15.3 % (11.0-15.5); WHITE BLOOD COUNT (AUTO) 4.7 K/uL (4.8-10.8)
[2021-07-09 06:43] LABS: ALBUMIN 0.6 g/dL (3.5-5.0); BILIRUBIN,TOTAL 0.2 mg/dL (0.2-1.0); CREATININE 1.3 mg/dL (0.5-1.5); POTASSIUM 3.7 mmol/L (3.5-5.1); TOTAL PROTEIN, SERUM 4.6 g/dL (6.0-8.3)
[2021-07-09] MEDS ORDERED: OCTREOTIDE ACETATE 1,250 MCG in 0.9% NACL 250ML 250 ML IV SCH (08:30)
[2021-07-09] MEDS: FAMOTIDINE 20MG VIAL IV SCH ×2 (09:45→20:23)
[2021-07-09] MEDS: LIPASE/PROTEASE/AMYLASE 5000/17000/24000 PO SCH ×3 (09:45→17:02)
[2021-07-09] MEDS: IRON SUCROSE COMPLEX 100 MG in 0.9%NACL 50ML 50 ML IV SCH (09:45)
[2021-07-09] MEDS: PANTOPRAZOLE 40 MG/VIAL IVP SCH ×2 (09:48→20:23)
[2021-07-09] MEDS: NYSTATIN-TRIAMCINOLONE CREAM 15 GM TP SCH ×2 (14:00→20:25)
[2021-07-09 14:06] LABS: HEMATOCRIT 21.9 % (42-54)
[2021-07-09] MEDS: ONDANSETRON 4MG INJ IV PRN ×2 (14:07→21:09)
[2021-07-09] MEDS: BALSAM PERU/CASTOR OIL 60 GM TUBE TP SCH (20:25)
[2021-07-10] VITALS (16 sets, daily range): BP systolic 102–154; BP diastolic 69–96
[2021-07-10 06:27] LABS: EOSINOPHILS % (AUTO) 0.2 % (0.0-8.0); LYMPHOCYTES % (AUTO) 15.7 % (21.0-51.0); MEAN CORPUSCULAR HEMOGLOBIN 28.7 pg (27.0-33.0); MEAN CORPUSCULAR VOLUME 86.8 fL (79-99); MONOCYTES % (AUTO) 2.8 % (3.0-13.0); NEUTROPHILS % (AUTO) 80.6 % (40.0-77.0); PLATELET COUNT (AUTO) 80 K/uL (130-400); RED BLOOD CELL COUNT(AUTO) 2.65 MIL/uL (4.50-6.20); RED CELL DISTRIBUTION WIDTH 14.8 % (11.0-15.5); WHITE BLOOD COUNT (AUTO) 4.3 K/uL (4.8-10.8)
[2021-07-10] MEDS: INSULIN HUMULIN R 100 UNIT/ML 3ML SQ SCH ×4 (06:34→20:53)
[2021-07-10 06:40] LABS: ALANINE AMINOTRANSFERASE 11 U/L (12-78); ASPARTATE AMINOTRANSFERASE 13 U/L (10-37); BILIRUBIN,TOTAL 0.3 mg/dL (0.2-1.0); CARBON DIOXIDE 15 mmol/L (21-32); CHLORIDE 116 mmol/L (101-111); CREATININE 0.8 mg/dL (0.5-1.5); GLOMERULAR FILTR. RATE CALC 110 mL/min (>60); GLUCOSE,RANDOM 93 mg/dL (70-105); SODIUM SERUM 143 mmol/L (136-145); TOTAL PROTEIN, SERUM 3.9 g/dL (6.0-8.3); UREA NITROGEN, BLOOD 20 mg/dL (7-18)
[2021-07-10 06:41] LABS: ALBUMIN < 0.6 g/dL (3.5-5.0)
[2021-07-10 06:42] LABS: POTASSIUM 2.9 mmol/L (3.5-5.1)
[2021-07-10] MEDS: LIPASE/PROTEASE/AMYLASE 5000/17000/24000 PO SCH ×3 (08:00→16:49)
[2021-07-10] MEDS: PANTOPRAZOLE 40 MG/VIAL IVP SCH ×2 (08:28→20:52)
[2021-07-10] MEDS: FAMOTIDINE 20MG VIAL IV SCH ×2 (08:28→20:52)
[2021-07-10] MEDS: IRON SUCROSE COMPLEX 100 MG in 0.9%NACL 50ML 50 ML IV SCH (08:28)
[2021-07-10] MEDS: BALSAM PERU/CASTOR OIL 60 GM TUBE TP SCH ×3 (08:33→20:54)
[2021-07-10] MEDS: NYSTATIN-TRIAMCINOLONE CREAM 15 GM TP SCH ×3 (08:33→20:54)
[2021-07-10 10:41] LABS: CREATININE 1.2 mg/dL (0.5-1.5); POTASSIUM 3.8 mmol/L (3.5-5.1)
[2021-07-10] MEDS ORDERED: PROPOFOL 10 MG/ML 20ML VIAL IV ONE (12:32)
[2021-07-10] MEDS ORDERED: LIDOCAINE PF 100MG/5ML (2%) SYRINGE 5ML ONE (12:34)
[2021-07-10] MEDS: ONDANSETRON 4MG INJ IV PRN ×2 (14:20→19:49)
[2021-07-10] MEDS: TRAMADOL HCL 50 MG TABLET PO PRN (14:22)
[2021-07-11] VITALS: BP 129/84
[2021-07-11] MEDS: ONDANSETRON 4MG INJ IV PRN (02:28)
[2021-07-11 04:00] VITALS: BP 137/84
[2021-07-11] MEDS: INSULIN HUMULIN R 100 UNIT/ML 3ML SQ SCH ×4 (05:27→20:33)
[2021-07-11] MEDS: IRON SUCROSE COMPLEX 100 MG in 0.9%NACL 50ML 50 ML IV SCH (07:29)
[2021-07-11] MEDS: LIPASE/PROTEASE/AMYLASE 5000/17000/24000 PO SCH ×3 (07:29→16:02)
[2021-07-11] MEDS: FAMOTIDINE 20MG VIAL IV SCH (07:29)
[2021-07-11] MEDS: PANTOPRAZOLE 40 MG/VIAL IVP SCH (07:29)
[2021-07-11] MEDS: BALSAM PERU/CASTOR OIL 60 GM TUBE TP SCH ×3 (07:30→20:31)
[2021-07-11] MEDS: NYSTATIN-TRIAMCINOLONE CREAM 15 GM TP SCH ×3 (07:30→20:31)
[2021-07-11 08:00] VITALS: BP 125/79
[2021-07-11 09:36] LABS: BASOPHILS % (AUTO) 0.2 % (0.0-5.0); CREATININE 1.2 mg/dL (0.5-1.5); EOSINOPHILS % (AUTO) 0.2 % (0.0-8.0); HEMATOCRIT 31.7 % (42-54); LYMPHOCYTES % (AUTO) 10.9 % (21.0-51.0); MEAN CORPUSCULAR HGB CONC 34.1 g/dL (32.0-36.0); MONOCYTES % (AUTO) 2.5 % (3.0-13.0); NEUTROPHILS % (AUTO) 85.8 % (40.0-77.0); PLATELET COUNT (AUTO) 83 K/uL (130-400); RED BLOOD CELL COUNT(AUTO) 3.73 MIL/uL (4.50-6.20); RED CELL DISTRIBUTION WIDTH 14.9 % (11.0-15.5)
[2021-07-11] MEDS ORDERED: MORPHINE 2 MG SYG IVP SCH (11:00)
[2021-07-11 12:00] VITALS: BP 122/74
[2021-07-11] MEDS ORDERED: PANT40TA54 PO (13:59)
[2021-07-11] MEDS ORDERED: AMYL1CAP61 PO (13:59)
[2021-07-11 16:00] VITALS: BP 142/80
[2021-07-11] MEDS: TRAMADOL HCL 50 MG TABLET PO PRN (17:57)
[2021-07-11 20:00] VITALS: BP 144/85
[2021-07-12] VITALS: BP 127/80
[2021-07-12] MEDS: ONDANSETRON 4MG INJ IV PRN ×2 (01:32→20:03)
[2021-07-12] MEDS: TRAMADOL HCL 50 MG TABLET PO PRN ×3 (01:32→20:04)
[2021-07-12 04:00] VITALS: BP 133/78
[2021-07-12] MEDS: INSULIN HUMULIN R 100 UNIT/ML 3ML SQ SCH ×4 (06:02→20:06)
[2021-07-12] MEDS: IRON SUCROSE COMPLEX 100 MG in 0.9%NACL 50ML 50 ML IV SCH (06:57)
[2021-07-12] MEDS: NYSTATIN-TRIAMCINOLONE CREAM 15 GM TP SCH ×3 (06:57→20:04)
[2021-07-12] MEDS: LIPASE/PROTEASE/AMYLASE 5000/17000/24000 PO SCH ×3 (06:57→16:19)
[2021-07-12] MEDS: BALSAM PERU/CASTOR OIL 60 GM TUBE TP SCH ×3 (06:58→20:05)
[2021-07-12 08:00] VITALS: BP 126/76
[2021-07-12 11:55] VITALS: BP 118/71
[2021-07-12 16:00] VITALS: BP 135/89
[2021-07-12 20:00] VITALS: BP 122/81
[2021-07-13] VITALS: BP 143/85
[2021-07-13 04:00] VITALS: BP 123/71
[2021-07-13] MEDS: ONDANSETRON 4MG INJ IV PRN ×3 (04:18→20:24)
[2021-07-13] MEDS: TRAMADOL HCL 50 MG TABLET PO PRN ×3 (04:19→20:24)
[2021-07-13] MEDS: INSULIN HUMULIN R 100 UNIT/ML 3ML SQ SCH ×4 (06:09→20:28)
[2021-07-13 08:00] VITALS: BP 123/78
[2021-07-13] MEDS: LIPASE/PROTEASE/AMYLASE 5000/17000/24000 PO SCH ×3 (08:55→16:53)
[2021-07-13] MEDS: IRON SUCROSE COMPLEX 100 MG in 0.9%NACL 50ML 50 ML IV SCH (08:56)
[2021-07-13] MEDS: ACETAMINOPHEN 325 MG TAB PO PRN (09:01)
[2021-07-13] MEDS: NYSTATIN-TRIAMCINOLONE CREAM 15 GM TP SCH ×3 (09:02→20:25)
[2021-07-13] MEDS: BALSAM PERU/CASTOR OIL 60 GM TUBE TP SCH ×3 (09:02→20:25)
[2021-07-13 12:00] VITALS: BP 110/71
[2021-07-13 16:00] VITALS: BP 129/78
[2021-07-13 20:00] VITALS: BP 119/74
[2021-07-14] VITALS: BP 126/72
[2021-07-14] MEDS: ONDANSETRON 4MG INJ IV PRN ×3 (03:30→20:03)
[2021-07-14] MEDS: TRAMADOL HCL 50 MG TABLET PO PRN ×3 (03:31→20:03)
[2021-07-14 03:49] VITALS: BP 113/66
[2021-07-14 06:18] LABS: CREATININE 1.3 mg/dL (0.5-1.5); MAGNESIUM 1.3 mg/dL (1.80-2.40); POTASSIUM 3.9 mmol/L (3.5-5.1)
[2021-07-14 06:19] LABS: BASOPHILS % (AUTO) 0.3 % (0.0-5.0); EOSINOPHILS % (AUTO) 0.8 % (0.0-8.0); HEMATOCRIT 24.2 % (42-54); LYMPHOCYTES % (AUTO) 13.5 % (21.0-51.0); MEAN CORPUSCULAR HEMOGLOBIN 28.3 pg (27.0-33.0); MEAN CORPUSCULAR HGB CONC 31.4 g/dL (32.0-36.0); MONOCYTES % (AUTO) 2.1 % (3.0-13.0); PLATELET COUNT (AUTO) 98 K/uL (130-400); RED BLOOD CELL COUNT(AUTO) 2.69 MIL/uL (4.50-6.20); RED CELL DISTRIBUTION WIDTH 15.3 % (11.0-15.5); WHITE BLOOD COUNT (AUTO) 7.6 K/uL (4.8-10.8)
[2021-07-14 07:00] VITALS: BP 121/69
[2021-07-14] MEDS: INSULIN HUMULIN R 100 UNIT/ML 3ML SQ SCH ×4 (07:20→20:03)
[2021-07-14] MEDS: IRON SUCROSE COMPLEX 100 MG in 0.9%NACL 50ML 50 ML IV SCH (08:55)
[2021-07-14] MEDS: LIPASE/PROTEASE/AMYLASE 5000/17000/24000 PO SCH ×3 (08:55→16:55)
[2021-07-14] MEDS: MAGNESIUM 2GM PREMIX 50ML 50 ML IV PRN ×2 (08:58→11:30)
[2021-07-14] MEDS: NYSTATIN-TRIAMCINOLONE CREAM 15 GM TP SCH ×3 (08:58→20:04)
[2021-07-14] MEDS: BALSAM PERU/CASTOR OIL 60 GM TUBE TP SCH ×3 (08:59→20:05)
[2021-07-14] MEDS: ACETAMINOPHEN 325 MG TAB PO PRN (09:01)
[2021-07-14 11:00] VITALS: BP 127/79
[2021-07-14] MEDS: PANTOPRAZOLE 40 MG TAB DR PO SCH (11:30)
[2021-07-14 15:00] VITALS: BP 121/77
[2021-07-14 19:00] VITALS: BP 122/77
[2021-07-15] VITALS: BP 123/76
[2021-07-15 04:00] VITALS: BP 127/77
[2021-07-15] MEDS: TRAMADOL HCL 50 MG TABLET PO PRN ×3 (04:23→20:55)
[2021-07-15] MEDS: PANTOPRAZOLE 40 MG TAB DR PO SCH (04:23)
[2021-07-15] MEDS: ONDANSETRON 4MG INJ IV PRN ×3 (04:23→20:54)
[2021-07-15] MEDS: INSULIN HUMULIN R 100 UNIT/ML 3ML SQ SCH ×4 (05:36→20:41)
[2021-07-15 08:00] VITALS: BP 128/77
[2021-07-15] MEDS: MAGNESIUM OXIDE 400 MG TABLET PO SCH (09:45)
[2021-07-15] MEDS: LIPASE/PROTEASE/AMYLASE 5000/17000/24000 PO SCH ×3 (09:54→17:26)
[2021-07-15] MEDS: BALSAM PERU/CASTOR OIL 60 GM TUBE TP SCH ×3 (09:59→20:42)
[2021-07-15] MEDS: NYSTATIN-TRIAMCINOLONE CREAM 15 GM TP SCH ×3 (09:59→20:42)
[2021-07-15 12:00] VITALS: BP 127/76
[2021-07-15 16:00] VITALS: BP 129/73
[2021-07-15 19:00] VITALS: BP 125/72
[2021-07-15] MEDS: MAGNESIUM 2GM PREMIX 50ML 50 ML IV SCH (20:54)
[2021-07-16] VITALS: BP 112/68
[2021-07-16 04:00] VITALS: BP 118/73
[2021-07-16] MEDS: TRAMADOL HCL 50 MG TABLET PO PRN ×2 (04:44→12:03)
[2021-07-16] MEDS: ONDANSETRON 4MG INJ IV PRN ×2 (04:45→12:03)
[2021-07-16] MEDS: INSULIN HUMULIN R 100 UNIT/ML 3ML SQ SCH ×4 (06:03→20:46)
[2021-07-16 08:00] VITALS: BP 127/78
[2021-07-16] MEDS: MAGNESIUM OXIDE 400 MG TABLET PO SCH (08:39)
[2021-07-16] MEDS: PANTOPRAZOLE 40 MG TAB DR PO SCH (08:39)
[2021-07-16] MEDS: LIPASE/PROTEASE/AMYLASE 5000/17000/24000 PO SCH ×3 (08:39→16:46)
[2021-07-16] MEDS: NYSTATIN-TRIAMCINOLONE CREAM 15 GM TP SCH (08:39)
[2021-07-16] MEDS: BALSAM PERU/CASTOR OIL 60 GM TUBE TP SCH ×3 (08:39→22:17)
[2021-07-16 11:54] VITALS: BP 124/74
[2021-07-16 16:08] VITALS: BP 136/61
[2021-07-16 19:00] VITALS: BP 140/83
[2021-07-16] MEDS: NYSTATIN 15 GM POWDER TP SCH (22:17)
[2021-07-17] VITALS: BP 134/77
[2021-07-17] MEDS: ONDANSETRON 4MG INJ IV PRN (02:42)
[2021-07-17] MEDS: TRAMADOL HCL 50 MG TABLET PO PRN ×2 (02:42→20:07)
[2021-07-17 04:00] VITALS: BP 121/76
[2021-07-17] MEDS: INSULIN HUMULIN R 100 UNIT/ML 3ML SQ SCH ×3 (07:13→20:14)
[2021-07-17 07:25] VITALS: BP 116/78
[2021-07-17] MEDS: PANTOPRAZOLE 40 MG TAB DR PO SCH (07:30)
[2021-07-17] MEDS: LIPASE/PROTEASE/AMYLASE 5000/17000/24000 PO SCH ×3 (08:00→17:51)
[2021-07-17] MEDS: MAGNESIUM OXIDE 400 MG TABLET PO SCH (09:00)
[2021-07-17] MEDS: NYSTATIN 15 GM POWDER TP SCH ×2 (09:00→20:08)
[2021-07-17] MEDS: BALSAM PERU/CASTOR OIL 60 GM TUBE TP SCH ×3 (09:00→20:08)
[2021-07-17 11:25] LABS: MAGNESIUM 1.8 mg/dL (1.80-2.40); POTASSIUM 5.1 mmol/L (3.5-5.1)
[2021-07-17 11:40] VITALS: BP 123/80
[2021-07-17 11:45] LABS: BASOPHILS % (AUTO) 0.3 % (0.0-5.0); EOSINOPHILS % (AUTO) 0.3 % (0.0-8.0); HEMATOCRIT 23.5 % (42-54); LYMPHOCYTES % (AUTO) 15.6 % (21.0-51.0); MEAN CORPUSCULAR HEMOGLOBIN 29.4 pg (27.0-33.0); MEAN CORPUSCULAR HGB CONC 32.8 g/dL (32.0-36.0); MEAN CORPUSCULAR VOLUME 89.7 fL (79-99); MONOCYTES % (AUTO) 2.1 % (3.0-13.0); NEUTROPHILS % (AUTO) 81.3 % (40.0-77.0); PLATELET COUNT (AUTO) 144 K/uL (130-400); RED BLOOD CELL COUNT(AUTO) 2.62 MIL/uL (4.50-6.20); RED CELL DISTRIBUTION WIDTH 15.5 % (11.0-15.5); WHITE BLOOD COUNT (AUTO) 7.2 K/uL (4.8-10.8)
[2021-07-17] MEDS ORDERED: MORPHINE 2 MG SYG IVP SCH (12:00)
[2021-07-17 15:35] VITALS: BP 133/84
[2021-07-17 20:11] VITALS: BP 130/79
[2021-07-17] MEDS: MAGNESIUM 2GM PREMIX 50ML 50 ML IV SCH (23:47)
[2021-07-18] VITALS (7 sets, daily range): BP systolic 116–144; BP diastolic 64–86
[2021-07-18] MEDS: MAG/ALUM/SIMETH 30 ML UDCUP ONE ×2 (04:30→04:35)
[2021-07-18] MEDS ORDERED: MAG/ALUM/SIMETH 30 ML UDCUP PO PRN (04:30)
[2021-07-18] MEDS: PANTOPRAZOLE 40 MG TAB DR PO SCH ×2 (05:39→05:42)
[2021-07-18] MEDS: TRAMADOL HCL 50 MG TABLET PO PRN ×2 (05:39→22:16)
[2021-07-18] MEDS: INSULIN HUMULIN R 100 UNIT/ML 3ML SQ SCH ×4 (06:01→20:05)
[2021-07-18 06:46] LABS: CARBON DIOXIDE 23 mmol/L (21-32); CHLORIDE 111 mmol/L (101-111); CREATININE 1.1 mg/dL (0.5-1.5); GLOMERULAR FILTR. RATE CALC 76 mL/min (>60); GLUCOSE,RANDOM 167 mg/dL (70-105); POTASSIUM 5.3 mmol/L (3.5-5.1); SODIUM SERUM 139 mmol/L (136-145); UREA NITROGEN, BLOOD 31 mg/dL (7-18)
[2021-07-18 06:51] LABS: LIPASE < 50 U/L (114-286)
[2021-07-18] MEDS ORDERED: NA ZIRCON CYCLOSIL(LOKELMA 10GM) PO SCH (09:00)
[2021-07-18] MEDS: MAGNESIUM OXIDE 400 MG TABLET PO SCH (09:00)
[2021-07-18] MEDS: LIPASE/PROTEASE/AMYLASE 5000/17000/24000 PO SCH ×3 (09:15→17:07)
[2021-07-18] MEDS: NYSTATIN 15 GM POWDER TP SCH ×2 (09:16→20:05)
[2021-07-18] MEDS: BALSAM PERU/CASTOR OIL 60 GM TUBE TP SCH ×3 (09:16→20:05)
[2021-07-18] MEDS ORDERED: MORPHINE 2 MG SYG IVP SCH (12:00)
[2021-07-18] MEDS: ONDANSETRON 4MG INJ IV PRN ×2 (12:00→22:16)
[2021-07-19] VITALS (7 sets, daily range): BP systolic 119–132; BP diastolic 72–85
[2021-07-19] MEDS: PANTOPRAZOLE 40 MG TAB DR PO SCH (05:39)
[2021-07-19] MEDS: INSULIN HUMULIN R 100 UNIT/ML 3ML SQ SCH ×4 (06:01→21:00)
[2021-07-19 06:49] LABS: BASOPHILS % (AUTO) 0.3 % (0.0-5.0); EOSINOPHILS % (AUTO) 0.3 % (0.0-8.0); HEMATOCRIT 23.2 % (42-54); LYMPHOCYTES % (AUTO) 17.1 % (21.0-51.0); MEAN CORPUSCULAR HEMOGLOBIN 29.5 pg (27.0-33.0); MEAN CORPUSCULAR HGB CONC 33.2 g/dL (32.0-36.0); MEAN CORPUSCULAR VOLUME 88.9 fL (79-99); MONOCYTES % (AUTO) 2.4 % (3.0-13.0); NEUTROPHILS % (AUTO) 79.5 % (40.0-77.0); PLATELET COUNT (AUTO) 102 K/uL (130-400); RED BLOOD CELL COUNT(AUTO) 2.61 MIL/uL (4.50-6.20); RED CELL DISTRIBUTION WIDTH 15.3 % (11.0-15.5); WHITE BLOOD COUNT (AUTO) 6.7 K/uL (4.8-10.8)
[2021-07-19 07:10] LABS: ALANINE AMINOTRANSFERASE 34 U/L (12-78); ALBUMIN 0.6 g/dL (3.5-5.0); ASPARTATE AMINOTRANSFERASE 64 U/L (10-37); BILIRUBIN,TOTAL 0.3 mg/dL (0.2-1.0); CARBON DIOXIDE 24 mmol/L (21-32); CHLORIDE 111 mmol/L (101-111); CREATININE 0.8 mg/dL (0.5-1.5); GLOMERULAR FILTR. RATE CALC 110 mL/min (>60); GLUCOSE,RANDOM 110 mg/dL (70-105); POTASSIUM 5.7 mmol/L (3.5-5.1); SODIUM SERUM 139 mmol/L (136-145); TOTAL PROTEIN, SERUM 5.1 g/dL (6.0-8.3); UREA NITROGEN, BLOOD 31 mg/dL (7-18)
[2021-07-19 07:16] LABS: LIPASE < 50 U/L (114-286)
[2021-07-19] MEDS: LIPASE/PROTEASE/AMYLASE 5000/17000/24000 PO SCH ×3 (08:00→16:40)
[2021-07-19] MEDS ORDERED: NA ZIRCON CYCLOSIL(LOKELMA 10GM) PO SCH (09:30)
[2021-07-19] MEDS: MAGNESIUM OXIDE 400 MG TABLET PO SCH (10:47)
[2021-07-19] MEDS: NYSTATIN 15 GM POWDER TP SCH ×2 (10:48→21:00)
[2021-07-19] MEDS: BALSAM PERU/CASTOR OIL 60 GM TUBE TP SCH ×3 (10:48→22:47)
[2021-07-19] MEDS: TRAMADOL HCL 50 MG TABLET PO PRN (14:33)
[2021-07-20] MEDS: ONDANSETRON 4MG INJ IV PRN (00:42)
[2021-07-20] MEDS: TRAMADOL HCL 50 MG TABLET PO PRN ×3 (00:43→23:08)
[2021-07-20 04:16] VITALS: BP 130/76
[2021-07-20 05:51] LABS: HEMATOCRIT 23.1 % (42-54); MEAN CORPUSCULAR HEMOGLOBIN 29.2 pg (27.0-33.0); MEAN CORPUSCULAR VOLUME 91.3 fL (79-99); RED BLOOD CELL COUNT(AUTO) 2.53 MIL/uL (4.50-6.20); RED CELL DISTRIBUTION WIDTH 15.5 % (11.0-15.5); WHITE BLOOD COUNT (AUTO) 5.8 K/uL (4.8-10.8)
[2021-07-20 06:11] LABS: CREATININE 0.8 mg/dL (0.5-1.5); POTASSIUM 4.4 mmol/L (3.5-5.1)
[2021-07-20] MEDS: INSULIN HUMULIN R 100 UNIT/ML 3ML SQ SCH ×4 (07:30→21:55)
[2021-07-20 07:47] VITALS: BP 117/78
[2021-07-20] MEDS: NYSTATIN 15 GM POWDER TP SCH ×2 (09:00→21:55)
[2021-07-20] MEDS: BALSAM PERU/CASTOR OIL 60 GM TUBE TP SCH ×3 (09:00→21:55)
[2021-07-20] MEDS: MAGNESIUM OXIDE 400 MG TABLET PO SCH (09:23)
[2021-07-20] MEDS: PANTOPRAZOLE 40 MG TAB DR PO SCH (09:23)
[2021-07-20] MEDS: LIPASE/PROTEASE/AMYLASE 5000/17000/24000 PO SCH ×3 (09:24→16:33)
[2021-07-20 12:02] VITALS: BP 128/81
[2021-07-20] MEDS ORDERED: APIXABAN 5 MG TABLET PO ONE (14:47)
[2021-07-20 16:37] VITALS: BP 132/84
[2021-07-20 20:00] VITALS: BP 115/66
[2021-07-20] MEDS: APIXABAN 5 MG TABLET PO SCH (21:52)
[2021-07-21] VITALS: BP 118/76
[2021-07-21 04:00] VITALS: BP 130/83
[2021-07-21] MEDS: PANTOPRAZOLE 40 MG TAB DR PO SCH (07:07)
[2021-07-21] MEDS: INSULIN HUMULIN R 100 UNIT/ML 3ML SQ SCH ×4 (07:08→21:00)
[2021-07-21] MEDS ORDERED: MORPHINE 2 MG SYG IM SCH (08:00)
[2021-07-21] MEDS: MAGNESIUM OXIDE 400 MG TABLET PO SCH (08:06)
[2021-07-21] MEDS: LIPASE/PROTEASE/AMYLASE 5000/17000/24000 PO SCH ×3 (08:06→16:36)
[2021-07-21 08:09] VITALS: BP 111/72
[2021-07-21] MEDS: BALSAM PERU/CASTOR OIL 60 GM TUBE TP SCH ×3 (08:09→22:32)
[2021-07-21] MEDS: NYSTATIN 15 GM POWDER TP SCH ×2 (08:09→22:32)
[2021-07-21] MEDS: APIXABAN 5 MG TABLET PO SCH ×2 (08:09→19:50)
[2021-07-21 11:54] VITALS: BP 119/65
[2021-07-21] MEDS: TRAMADOL HCL 50 MG TABLET PO PRN (16:41)
[2021-07-21 16:58] VITALS: BP 118/76
[2021-07-21 20:00] VITALS: BP 118/75
[2021-07-22] VITALS (7 sets, daily range): BP systolic 91–140; BP diastolic 56–89
[2021-07-22] MEDS: TRAMADOL HCL 50 MG TABLET PO PRN (00:54)
[2021-07-22] MEDS: INSULIN HUMULIN R 100 UNIT/ML 3ML SQ SCH ×4 (06:09→20:41)
[2021-07-22] MEDS: PANTOPRAZOLE 40 MG TAB DR PO SCH (06:42)
[2021-07-22] MEDS: APIXABAN 5 MG TABLET PO SCH ×2 (08:04→23:11)
[2021-07-22] MEDS: BALSAM PERU/CASTOR OIL 60 GM TUBE TP SCH ×3 (08:04→21:00)
[2021-07-22] MEDS: NYSTATIN 15 GM POWDER TP SCH ×2 (08:04→21:00)
[2021-07-22] MEDS: LIPASE/PROTEASE/AMYLASE 5000/17000/24000 PO SCH ×3 (08:04→16:52)
[2021-07-22] MEDS: MAGNESIUM OXIDE 400 MG TABLET PO SCH (08:04)
[2021-07-22] MEDS: MORPHINE 2 MG SYG IM PRN ×2 (09:58→18:58)
[2021-07-22] MEDS ORDERED: METOPROLOL TARTRATE 1 MG/ML 5ML VIAL IV ONE ×2 (19:02→20:10)
[2021-07-22] MEDS ORDERED: METOPROLOL TARTRATE 25 MG TAB ONE (19:03)
[2021-07-22] MEDS ORDERED: NITROGLYCERIN 1GM OINT 1 INCH/1GM TD ONE ×2 (19:03→20:10)
[2021-07-22] MEDS ORDERED: ASPIRIN 325MG TAB ONE (19:03)
[2021-07-22] MEDS: ASPIRIN 325MG TAB PO SCH (19:30)
[2021-07-22] MEDS: METOPROLOL TARTRATE 25 MG TAB PO SCH ×2 (19:30→19:43)
[2021-07-22 19:47] LABS: HEMATOCRIT 27.5 % (42-54); MEAN CORPUSCULAR HEMOGLOBIN 29.7 pg (27.0-33.0); MEAN CORPUSCULAR HGB CONC 31.6 g/dL (32.0-36.0); MEAN CORPUSCULAR VOLUME 93.9 fL (79-99); RED BLOOD CELL COUNT(AUTO) 2.93 MIL/uL (4.50-6.20); RED CELL DISTRIBUTION WIDTH 15.9 % (11.0-15.5); WHITE BLOOD COUNT (AUTO) 4.4 K/uL (4.8-10.8)
[2021-07-22 19:59] LABS: CREATININE 1.2 mg/dL (0.5-1.5); POTASSIUM 5.4 mmol/L (3.5-5.1)
[2021-07-22] MEDS: ONDANSETRON 4MG INJ IV PRN (23:08)
[2021-07-23 04:00] VITALS: BP 108/62
[2021-07-23] MEDS: INSULIN HUMULIN R 100 UNIT/ML 3ML SQ SCH ×4 (05:29→20:47)
[2021-07-23] MEDS: MORPHINE 2 MG SYG IM PRN ×3 (06:09→21:00)
[2021-07-23] MEDS: ONDANSETRON 4MG INJ IV PRN ×3 (06:09→21:00)
[2021-07-23] MEDS: PANTOPRAZOLE 40 MG TAB DR PO SCH (06:22)
[2021-07-23 08:00] VITALS: BP 102/61
[2021-07-23] MEDS: METOPROLOL TARTRATE 25 MG TAB PO SCH ×2 (08:38→20:46)
[2021-07-23] MEDS: NYSTATIN 15 GM POWDER TP SCH ×2 (09:00→20:47)
[2021-07-23] MEDS: LIPASE/PROTEASE/AMYLASE 5000/17000/24000 PO SCH ×3 (10:34→17:13)
[2021-07-23] MEDS: ASPIRIN 325MG TAB PO SCH (10:36)
[2021-07-23] MEDS: MAGNESIUM OXIDE 400 MG TABLET PO SCH (10:37)
[2021-07-23] MEDS: APIXABAN 5 MG TABLET PO SCH ×2 (10:37→20:47)
[2021-07-23] MEDS: BALSAM PERU/CASTOR OIL 60 GM TUBE TP SCH ×3 (10:41→20:48)
[2021-07-23 12:00] VITALS: BP 107/57
[2021-07-23 16:00] VITALS: BP 109/70
[2021-07-23 20:18] VITALS: BP 92/57
[2021-07-23] MEDS ORDERED: MORPHINE 2 MG SYG IVP PRN (22:00)
[2021-07-23 23:19] VITALS: BP 106/60
[2021-07-24 03:03] VITALS: BP 107/67
[2021-07-24] MEDS: MORPHINE 2 MG SYG IVP PRN ×4 (03:30→22:32)
[2021-07-24] MEDS: ONDANSETRON 4MG INJ IV PRN ×4 (03:30→22:31)
[2021-07-24] MEDS ORDERED: TRAMADOL HCL 50 MG TABLET PO PRN (03:30)
[2021-07-24 05:50] LABS: CREATININE 1.2 mg/dL (0.5-1.5); POTASSIUM 5.5 mmol/L (3.5-5.1)
[2021-07-24] MEDS: INSULIN HUMULIN R 100 UNIT/ML 3ML SQ SCH ×4 (05:54→21:36)
[2021-07-24] MEDS: PANTOPRAZOLE 40 MG TAB DR PO SCH (05:54)
[2021-07-24 06:00] LABS: HEMATOCRIT 21.4 % (42-54); MEAN CORPUSCULAR HEMOGLOBIN 29.7 pg (27.0-33.0); MEAN CORPUSCULAR HGB CONC 32.2 g/dL (32.0-36.0); MEAN CORPUSCULAR VOLUME 92.2 fL (79-99); RED BLOOD CELL COUNT(AUTO) 2.32 MIL/uL (4.50-6.20); RED CELL DISTRIBUTION WIDTH 16.4 % (11.0-15.5)
[2021-07-24 08:00] VITALS: BP 112/69
[2021-07-24] MEDS: APIXABAN 5 MG TABLET PO SCH ×2 (09:00→21:00)
[2021-07-24] MEDS: ASPIRIN 325MG TAB PO SCH (09:00)
[2021-07-24] MEDS: LIPASE/PROTEASE/AMYLASE 5000/17000/24000 PO SCH ×3 (09:20→16:24)
[2021-07-24] MEDS: MAGNESIUM OXIDE 400 MG TABLET PO SCH (09:20)
[2021-07-24] MEDS: METOPROLOL TARTRATE 25 MG TAB PO SCH ×2 (09:20→23:57)
[2021-07-24] MEDS: NYSTATIN 15 GM POWDER TP SCH ×2 (11:01→21:00)
[2021-07-24] MEDS: BALSAM PERU/CASTOR OIL 60 GM TUBE TP SCH ×3 (11:01→21:00)
[2021-07-24 11:33] VITALS: BP 117/73
[2021-07-24 16:00] VITALS: BP 123/71
[2021-07-24 20:00] VITALS: BP 142/74
[2021-07-25] VITALS: BP 141/82
[2021-07-25 03:51] VITALS: BP 123/88
[2021-07-25] MEDS: ONDANSETRON 4MG INJ IV PRN ×3 (04:31→22:17)
[2021-07-25] MEDS: MORPHINE 2 MG SYG IVP PRN ×4 (04:32→22:18)
[2021-07-25 06:15] LABS: BASOPHILS % (AUTO) 0.3 % (0.0-5.0); EOSINOPHILS % (AUTO) 1.1 % (0.0-8.0); LYMPHOCYTES % (AUTO) 20.2 % (21.0-51.0); MEAN CORPUSCULAR HEMOGLOBIN 29.5 pg (27.0-33.0); MEAN CORPUSCULAR HGB CONC 31.7 g/dL (32.0-36.0); MEAN CORPUSCULAR VOLUME 92.9 fL (79-99); MONOCYTES % (AUTO) 2.3 % (3.0-13.0); NEUTROPHILS % (AUTO) 75.7 % (40.0-77.0); PLATELET COUNT (AUTO) 215 K/uL (130-400); RED BLOOD CELL COUNT(AUTO) 2.24 MIL/uL (4.50-6.20); RED CELL DISTRIBUTION WIDTH 15.9 % (11.0-15.5); WHITE BLOOD COUNT (AUTO) 7.1 K/uL (4.8-10.8)
[2021-07-25] MEDS: PANTOPRAZOLE 40 MG TAB DR PO SCH (06:20)
[2021-07-25] MEDS: INSULIN HUMULIN R 100 UNIT/ML 3ML SQ SCH ×4 (06:23→21:36)
[2021-07-25 06:29] LABS: INR 1.04 (0.85-1.15); PROTHROMBIN TIME 11.3 SEC (9.6-11.6)
[2021-07-25 06:33] LABS: CREATININE 1.2 mg/dL (0.5-1.5); POTASSIUM 5.3 mmol/L (3.5-5.1)
[2021-07-25 06:44] LABS: HEMATOCRIT 20.8 % (42-54)
[2021-07-25 08:00] VITALS: BP 117/82
[2021-07-25] MEDS: METOPROLOL TARTRATE 25 MG TAB PO SCH ×2 (08:33→21:39)
[2021-07-25] MEDS: MAGNESIUM OXIDE 400 MG TABLET PO SCH (08:33)
[2021-07-25] MEDS: LIPASE/PROTEASE/AMYLASE 5000/17000/24000 PO SCH ×3 (08:33→16:29)
[2021-07-25] MEDS: APIXABAN 5 MG TABLET PO SCH (08:35)
[2021-07-25] MEDS: ASPIRIN 325MG TAB PO SCH (08:35)
[2021-07-25] MEDS: NYSTATIN 15 GM POWDER TP SCH ×2 (08:36→21:00)
[2021-07-25] MEDS: BALSAM PERU/CASTOR OIL 60 GM TUBE TP SCH ×3 (08:36→21:40)
[2021-07-25] MEDS: FERROUS SULFATE 325 MG TABLET.DR PO SCH (11:54)
[2021-07-25 12:00] VITALS: BP 113/80
[2021-07-25 12:04] LABS: HEMATOCRIT 22.3 % (42-54)
[2021-07-25 16:00] VITALS: BP 151/85
[2021-07-25 20:00] VITALS: BP 149/88
[2021-07-26] VITALS: BP 113/81
[2021-07-26 04:00] VITALS: BP 122/80
[2021-07-26] MEDS: MORPHINE 2 MG SYG IVP PRN ×4 (04:25→22:18)
[2021-07-26] MEDS: ONDANSETRON 4MG INJ IV PRN ×4 (04:25→22:18)
[2021-07-26] MEDS: INSULIN HUMULIN R 100 UNIT/ML 3ML SQ SCH ×4 (06:03→21:02)
[2021-07-26] MEDS: PANTOPRAZOLE 40 MG TAB DR PO SCH (06:22)
[2021-07-26 06:25] LABS: BASOPHILS % (AUTO) 0.2 % (0.0-5.0); EOSINOPHILS % (AUTO) 1.2 % (0.0-8.0); HEMATOCRIT 24.6 % (42-54); LYMPHOCYTES % (AUTO) 20.6 % (21.0-51.0); MEAN CORPUSCULAR HEMOGLOBIN 29.1 pg (27.0-33.0); MEAN CORPUSCULAR HGB CONC 30.9 g/dL (32.0-36.0); MEAN CORPUSCULAR VOLUME 94.3 fL (79-99); MONOCYTES % (AUTO) 2.3 % (3.0-13.0); NEUTROPHILS % (AUTO) 75.2 % (40.0-77.0); PLATELET COUNT (AUTO) 252 K/uL (130-400); RED BLOOD CELL COUNT(AUTO) 2.61 MIL/uL (4.50-6.20); WHITE BLOOD COUNT (AUTO) 6.1 K/uL (4.8-10.8)
[2021-07-26 06:44] LABS: CREATININE 1.1 mg/dL (0.5-1.5); POTASSIUM 5.1 mmol/L (3.5-5.1)
[2021-07-26] MEDS: LIPASE/PROTEASE/AMYLASE 5000/17000/24000 PO SCH ×3 (08:00→17:43)
[2021-07-26 08:58] VITALS: BP 127/73
[2021-07-26] MEDS: MAGNESIUM OXIDE 400 MG TABLET PO SCH (09:53)
[2021-07-26] MEDS: FERROUS SULFATE 325 MG TABLET.DR PO SCH (09:53)
[2021-07-26] MEDS: METOPROLOL TARTRATE 25 MG TAB PO SCH ×2 (09:53→21:04)
[2021-07-26] MEDS: BALSAM PERU/CASTOR OIL 60 GM TUBE TP SCH ×3 (09:57→21:04)
[2021-07-26] MEDS: NYSTATIN 15 GM POWDER TP SCH ×2 (10:30→21:00)
[2021-07-26 13:05] VITALS: BP 118/75
[2021-07-26 17:11] VITALS: BP 140/80
[2021-07-26 20:00] VITALS: BP 137/99
[2021-07-26] MEDS: IRON SUCROSE COMPLEX 100 MG in 0.9%NACL 50ML 50 ML IV SCH (21:04)
[2021-07-27] VITALS: BP 128/74
[2021-07-27 04:00] VITALS: BP 132/78
[2021-07-27] MEDS: ONDANSETRON 4MG INJ IV PRN ×3 (04:28→22:36)
[2021-07-27] MEDS: MORPHINE 2 MG SYG IVP PRN ×4 (04:29→22:37)
[2021-07-27] MEDS: PANTOPRAZOLE 40 MG TAB DR PO SCH (06:00)
[2021-07-27 06:05] LABS: POTASSIUM 5.3 mmol/L (3.5-5.1)
[2021-07-27 06:10] LABS: BASOPHILS % (AUTO) 0.4 % (0.0-5.0); EOSINOPHILS % (AUTO) 1.2 % (0.0-8.0); HEMATOCRIT 23.6 % (42-54); LYMPHOCYTES % (AUTO) 26.1 % (21.0-51.0); MEAN CORPUSCULAR HEMOGLOBIN 29.2 pg (27.0-33.0); MEAN CORPUSCULAR HGB CONC 32.2 g/dL (32.0-36.0); MEAN CORPUSCULAR VOLUME 90.8 fL (79-99); MONOCYTES % (AUTO) 4.5 % (3.0-13.0); NEUTROPHILS % (AUTO) 67.4 % (40.0-77.0); PLATELET COUNT (AUTO) 245 K/uL (130-400); RED CELL DISTRIBUTION WIDTH 15.9 % (11.0-15.5); WHITE BLOOD COUNT (AUTO) 4.9 K/uL (4.8-10.8)
[2021-07-27] MEDS: INSULIN HUMULIN R 100 UNIT/ML 3ML SQ SCH ×4 (07:30→19:57)
[2021-07-27 08:12] VITALS: BP 137/88
[2021-07-27] MEDS: METOPROLOL TARTRATE 25 MG TAB PO SCH ×2 (08:50→19:57)
[2021-07-27] MEDS: FERROUS SULFATE 325 MG TABLET.DR PO SCH ×2 (08:50→19:57)
[2021-07-27] MEDS: LIPASE/PROTEASE/AMYLASE 5000/17000/24000 PO SCH ×3 (08:50→16:52)
[2021-07-27] MEDS: MAGNESIUM OXIDE 400 MG TABLET PO SCH (08:50)
[2021-07-27] MEDS: IRON SUCROSE COMPLEX 100 MG in 0.9%NACL 50ML 50 ML IV SCH (08:50)
[2021-07-27] MEDS: BALSAM PERU/CASTOR OIL 60 GM TUBE TP SCH ×3 (08:50→19:58)
[2021-07-27] MEDS: NYSTATIN 15 GM POWDER TP SCH ×2 (08:51→19:58)
[2021-07-27 11:27] VITALS: BP 135/82
[2021-07-27] MEDS ORDERED: KAYEXALATE 15GM/60ML PO ONE (14:00)
[2021-07-27 16:20] VITALS: BP 142/82
[2021-07-27 21:20] VITALS: BP 127/72
[2021-07-28] VITALS (7 sets, daily range): BP systolic 115–139; BP diastolic 68–82
[2021-07-28] MEDS: PANTOPRAZOLE 40 MG TAB DR PO SCH (05:37)
[2021-07-28] MEDS: MORPHINE 2 MG SYG IVP PRN ×3 (05:37→18:17)
[2021-07-28] MEDS: ONDANSETRON 4MG INJ IV PRN ×3 (05:37→18:18)
[2021-07-28] MEDS: INSULIN HUMULIN R 100 UNIT/ML 3ML SQ SCH ×4 (05:45→20:21)
[2021-07-28] MEDS: BALSAM PERU/CASTOR OIL 60 GM TUBE TP SCH ×3 (08:57→20:21)
[2021-07-28] MEDS: NYSTATIN 15 GM POWDER TP SCH ×2 (08:57→20:22)
[2021-07-28] MEDS: MAGNESIUM OXIDE 400 MG TABLET PO SCH (08:57)
[2021-07-28] MEDS: FERROUS SULFATE 325 MG TABLET.DR PO SCH ×2 (08:57→20:20)
[2021-07-28] MEDS: METOPROLOL TARTRATE 25 MG TAB PO SCH ×2 (08:57→20:20)
[2021-07-28] MEDS: LIPASE/PROTEASE/AMYLASE 5000/17000/24000 PO SCH ×3 (08:57→19:10)
[2021-07-28] MEDS: IRON SUCROSE COMPLEX 100 MG in 0.9%NACL 50ML 50 ML IV SCH (08:58)
[2021-07-28 10:07] LABS: MEAN CORPUSCULAR HEMOGLOBIN 29.8 pg (27.0-33.0); MEAN CORPUSCULAR HGB CONC 31.8 g/dL (32.0-36.0); MEAN CORPUSCULAR VOLUME 93.6 fL (79-99); RED BLOOD CELL COUNT(AUTO) 2.99 MIL/uL (4.50-6.20); RED CELL DISTRIBUTION WIDTH 16.5 % (11.0-15.5); WHITE BLOOD COUNT (AUTO) 15.8 K/uL (4.8-10.8)
[2021-07-28 10:21] LABS: ALBUMIN 0.7 g/dL (3.5-5.0); BILIRUBIN,TOTAL 0.2 mg/dL (0.2-1.0); CREATININE 1.2 mg/dL (0.5-1.5); POTASSIUM 5.1 mmol/L (3.5-5.1); TOTAL PROTEIN, SERUM 5.5 g/dL (6.0-8.3)
[2021-07-28 17:06] LABS: HEMATOCRIT 27.6 % (42-54); MEAN CORPUSCULAR HEMOGLOBIN 29.6 pg (27.0-33.0); MEAN CORPUSCULAR HGB CONC 32.2 g/dL (32.0-36.0); MEAN CORPUSCULAR VOLUME 91.7 fL (79-99); RED BLOOD CELL COUNT(AUTO) 3.01 MIL/uL (4.50-6.20); RED CELL DISTRIBUTION WIDTH 16.5 % (11.0-15.5); WHITE BLOOD COUNT (AUTO) 13.7 K/uL (4.8-10.8)
[2021-07-28] MEDS: CEFTRIAXONE 1G VIAL IVP SCH (17:17)
[2021-07-29] MEDS: ONDANSETRON 4MG INJ IV PRN ×3 (00:03→21:48)
[2021-07-29] MEDS: MORPHINE 2 MG SYG IVP PRN ×4 (00:04→21:47)
[2021-07-29 03:17] VITALS: BP 124/68
[2021-07-29] MEDS: PANTOPRAZOLE 40 MG TAB DR PO SCH (06:04)
[2021-07-29] MEDS: INSULIN HUMULIN R 100 UNIT/ML 3ML SQ SCH ×4 (06:05→21:53)
[2021-07-29 08:00] VITALS: BP 157/75
[2021-07-29 10:17] LABS: HEMATOCRIT 25.5 % (42-54); MEAN CORPUSCULAR HEMOGLOBIN 30.3 pg (27.0-33.0); MEAN CORPUSCULAR HGB CONC 32.2 g/dL (32.0-36.0); MEAN CORPUSCULAR VOLUME 94.1 fL (79-99); RED BLOOD CELL COUNT(AUTO) 2.71 MIL/uL (4.50-6.20); RED CELL DISTRIBUTION WIDTH 16.8 % (11.0-15.5); WHITE BLOOD COUNT (AUTO) 9.9 K/uL (4.8-10.8)
[2021-07-29] MEDS: FERROUS SULFATE 325 MG TABLET.DR PO SCH ×2 (10:25→21:44)
[2021-07-29] MEDS: MAGNESIUM OXIDE 400 MG TABLET PO SCH (10:25)
[2021-07-29] MEDS: METOPROLOL TARTRATE 25 MG TAB PO SCH ×2 (10:25→21:45)
[2021-07-29] MEDS: LIPASE/PROTEASE/AMYLASE 5000/17000/24000 PO SCH ×3 (10:25→20:15)
[2021-07-29] MEDS: BALSAM PERU/CASTOR OIL 60 GM TUBE TP SCH ×3 (10:26→21:46)
[2021-07-29] MEDS: NYSTATIN 15 GM POWDER TP SCH ×2 (10:36→21:47)
[2021-07-29] MEDS: IRON SUCROSE COMPLEX 100 MG in 0.9%NACL 50ML 50 ML IV SCH (10:37)
[2021-07-29 11:54] VITALS: BP 115/72
[2021-07-29] MEDS: CEFTRIAXONE 1G VIAL IVP SCH (14:35)
[2021-07-29 16:00] VITALS: BP 128/68
[2021-07-29 16:28] LABS: MEAN CORPUSCULAR HEMOGLOBIN 30.7 pg (27.0-33.0); MEAN CORPUSCULAR HGB CONC 33.7 g/dL (32.0-36.0); MEAN CORPUSCULAR VOLUME 91.2 fL (79-99); RED BLOOD CELL COUNT(AUTO) 2.28 MIL/uL (4.50-6.20); RED CELL DISTRIBUTION WIDTH 16.6 % (11.0-15.5); WHITE BLOOD COUNT (AUTO) 10.8 K/uL (4.8-10.8)
[2021-07-29 16:45] LABS: INR 1.08 (0.85-1.15); PROTHROMBIN TIME 11.7 SEC (9.6-11.6)
[2021-07-29 16:49] LABS: HEMATOCRIT 20.8 % (42-54)
[2021-07-29 20:00] VITALS: BP 133/74
[2021-07-29] MEDS: APIXABAN 2.5 MG TABLET PO SCH (21:45)
[2021-07-30] VITALS: BP 125/69
[2021-07-30 04:00] VITALS: BP 141/74
[2021-07-30] MEDS: ONDANSETRON 4MG INJ IV PRN ×2 (04:21→18:11)
[2021-07-30] MEDS: MORPHINE 2 MG SYG IVP PRN ×3 (04:22→18:11)
[2021-07-30 07:08] LABS: HEMATOCRIT 22.3 % (42-54); MEAN CORPUSCULAR HEMOGLOBIN 29.6 pg (27.0-33.0); MEAN CORPUSCULAR HGB CONC 31.8 g/dL (32.0-36.0); MEAN CORPUSCULAR VOLUME 92.9 fL (79-99); RED BLOOD CELL COUNT(AUTO) 2.4 MIL/uL (4.50-6.20); RED CELL DISTRIBUTION WIDTH 16.7 % (11.0-15.5); WHITE BLOOD COUNT (AUTO) 9.9 K/uL (4.8-10.8)
[2021-07-30] MEDS: INSULIN HUMULIN R 100 UNIT/ML 3ML SQ SCH ×4 (07:30→21:00)
[2021-07-30 08:00] VITALS: BP 124/76
[2021-07-30] MEDS: PANTOPRAZOLE 40 MG TAB DR PO SCH (08:22)
[2021-07-30] MEDS: METOPROLOL TARTRATE 25 MG TAB PO SCH ×2 (08:22→21:53)
[2021-07-30] MEDS: MAGNESIUM OXIDE 400 MG TABLET PO SCH (08:22)
[2021-07-30] MEDS: FERROUS SULFATE 325 MG TABLET.DR PO SCH ×2 (08:22→21:53)
[2021-07-30] MEDS: LIPASE/PROTEASE/AMYLASE 5000/17000/24000 PO SCH ×3 (08:22→17:33)
[2021-07-30] MEDS: APIXABAN 2.5 MG TABLET PO SCH (08:23)
[2021-07-30] MEDS: BALSAM PERU/CASTOR OIL 60 GM TUBE TP SCH ×3 (08:24→21:52)
[2021-07-30] MEDS: NYSTATIN 15 GM POWDER TP SCH ×2 (08:25→21:52)
[2021-07-30 08:36] LABS: CREATININE 1.3 mg/dL (0.5-1.5); POTASSIUM 4.7 mmol/L (3.5-5.1)
[2021-07-30] MEDS: IRON SUCROSE COMPLEX 100 MG in 0.9%NACL 50ML 50 ML IV SCH ×2 (11:16→11:46)
[2021-07-30 12:10] VITALS: BP 136/74
[2021-07-30] MEDS: CEFTRIAXONE 1G VIAL IVP SCH (14:30)
[2021-07-30 16:00] VITALS: BP 132/77
[2021-07-30] MEDS ORDERED: KETOROLAC 15MG/ML VIAL (15MG/ML) IV PRN (18:00)
[2021-07-30 20:00] VITALS: BP 124/77
[2021-07-31] VITALS: BP 129/76
[2021-07-31] MEDS: MORPHINE 2 MG SYG IVP PRN ×4 (00:34→19:44)
[2021-07-31] MEDS: ONDANSETRON 4MG INJ IV PRN ×4 (00:34→19:43)
[2021-07-31 04:00] VITALS: BP 130/71
[2021-07-31] MEDS: INSULIN HUMULIN R 100 UNIT/ML 3ML SQ SCH ×4 (06:33→19:47)
[2021-07-31] MEDS: PANTOPRAZOLE 40 MG TAB DR PO SCH (07:30)
[2021-07-31 08:19] VITALS: BP 130/79
[2021-07-31] MEDS: FERROUS SULFATE 325 MG TABLET.DR PO SCH ×2 (09:26→19:42)
[2021-07-31] MEDS: MAGNESIUM OXIDE 400 MG TABLET PO SCH (09:26)
[2021-07-31] MEDS: METOPROLOL TARTRATE 25 MG TAB PO SCH ×2 (09:26→19:42)
[2021-07-31] MEDS: BALSAM PERU/CASTOR OIL 60 GM TUBE TP SCH ×3 (09:27→19:48)
[2021-07-31] MEDS: NYSTATIN 15 GM POWDER TP SCH ×2 (09:27→19:47)
[2021-07-31] MEDS: LIPASE/PROTEASE/AMYLASE 5000/17000/24000 PO SCH ×3 (09:30→17:06)
[2021-07-31 11:24] VITALS: BP 103/69
[2021-07-31] MEDS: CEFTRIAXONE 1G VIAL IVP SCH (15:25)
[2021-07-31 16:39] VITALS: BP 118/81
[2021-07-31 20:00] VITALS: BP 136/75
[2021-08-01] VITALS (7 sets, daily range): BP systolic 112–139; BP diastolic 58–83
[2021-08-01] MEDS: ONDANSETRON 4MG INJ IV PRN ×3 (02:42→20:36)
[2021-08-01] MEDS: MORPHINE 2 MG SYG IVP PRN ×4 (02:43→21:02)
[2021-08-01] MEDS: INSULIN HUMULIN R 100 UNIT/ML 3ML SQ SCH ×4 (05:55→20:36)
[2021-08-01] MEDS: LIPASE/PROTEASE/AMYLASE 5000/17000/24000 PO SCH ×3 (08:12→17:00)
[2021-08-01] MEDS: PANTOPRAZOLE 40 MG TAB DR PO SCH (08:12)
[2021-08-01] MEDS: MAGNESIUM OXIDE 400 MG TABLET PO SCH (08:12)
[2021-08-01] MEDS: FERROUS SULFATE 325 MG TABLET.DR PO SCH ×2 (08:12→20:36)
[2021-08-01] MEDS: METOPROLOL TARTRATE 25 MG TAB PO SCH ×2 (08:12→20:36)
[2021-08-01] MEDS: NYSTATIN 15 GM POWDER TP SCH ×2 (09:00→20:36)
[2021-08-01] MEDS: BALSAM PERU/CASTOR OIL 60 GM TUBE TP SCH ×3 (09:00→20:36)
[2021-08-01] MEDS: IRON SUCROSE COMPLEX 100 MG in 0.9%NACL 50ML 50 ML IV SCH (11:45)
[2021-08-01] MEDS: CEFTRIAXONE 1G VIAL IVP SCH (14:39)
[2021-08-02] MEDS: ONDANSETRON 4MG INJ IV PRN ×4 (03:08→22:31)
[2021-08-02] MEDS: MORPHINE 2 MG SYG IVP PRN ×4 (03:09→22:32)
[2021-08-02 03:28] VITALS: BP 128/81
[2021-08-02] MEDS: INSULIN HUMULIN R 100 UNIT/ML 3ML SQ SCH ×4 (06:33→20:32)
[2021-08-02] MEDS: PANTOPRAZOLE 40 MG TAB DR PO SCH (06:38)
[2021-08-02 06:51] LABS: BASOPHILS % (AUTO) 0.3 % (0.0-5.0); HEMATOCRIT 25.2 % (42-54); LYMPHOCYTES % (AUTO) 20.7 % (21.0-51.0); MEAN CORPUSCULAR HGB CONC 32.1 g/dL (32.0-36.0); MEAN CORPUSCULAR VOLUME 93.3 fL (79-99); MONOCYTES % (AUTO) 2.4 % (3.0-13.0); NEUTROPHILS % (AUTO) 75.1 % (40.0-77.0); PLATELET COUNT (AUTO) 249 K/uL (130-400); WHITE BLOOD COUNT (AUTO) 8.6 K/uL (4.8-10.8)
[2021-08-02] MEDS: MAGNESIUM OXIDE 400 MG TABLET PO SCH (08:18)
[2021-08-02] MEDS: FERROUS SULFATE 325 MG TABLET.DR PO SCH ×2 (08:18→20:31)
[2021-08-02] MEDS: METOPROLOL TARTRATE 25 MG TAB PO SCH ×2 (08:18→20:31)
[2021-08-02] MEDS: LIPASE/PROTEASE/AMYLASE 5000/17000/24000 PO SCH ×3 (08:18→16:26)
[2021-08-02] MEDS: IRON SUCROSE COMPLEX 100 MG in 0.9%NACL 50ML 50 ML IV SCH (08:18)
[2021-08-02 08:21] VITALS: BP 111/74
[2021-08-02] MEDS: BALSAM PERU/CASTOR OIL 60 GM TUBE TP SCH ×3 (09:22→20:32)
[2021-08-02] MEDS: NYSTATIN 15 GM POWDER TP SCH ×2 (09:22→20:32)
[2021-08-02] MEDS ORDERED: HYDROMORPHONE 0.5 MG SYG (0.5MG/0.5ML) IVP SCH (11:30)
[2021-08-02 11:44] VITALS: BP 94/63
[2021-08-02] MEDS: CEFTRIAXONE 1G VIAL IVP SCH (15:05)
[2021-08-02 15:46] VITALS: BP 124/77
[2021-08-02 20:00] VITALS: BP 125/79
[2021-08-03] VITALS (7 sets, daily range): BP systolic 109–130; BP diastolic 68–77
[2021-08-03] MEDS: MORPHINE 2 MG SYG IVP PRN ×4 (04:33→23:11)
[2021-08-03] MEDS: INSULIN HUMULIN R 100 UNIT/ML 3ML SQ SCH ×2 (06:08→20:47)
[2021-08-03] MEDS: PANTOPRAZOLE 40 MG TAB DR PO SCH (06:36)
[2021-08-03] MEDS: MAGNESIUM OXIDE 400 MG TABLET PO SCH (08:41)
[2021-08-03] MEDS: FERROUS SULFATE 325 MG TABLET.DR PO SCH ×2 (08:41→20:37)
[2021-08-03] MEDS: IRON SUCROSE COMPLEX 100 MG in 0.9%NACL 50ML 50 ML IV SCH (08:41)
[2021-08-03] MEDS: LIPASE/PROTEASE/AMYLASE 5000/17000/24000 PO SCH ×3 (08:41→16:39)
[2021-08-03] MEDS: METOPROLOL TARTRATE 25 MG TAB PO SCH ×2 (08:41→20:37)
[2021-08-03] MEDS: BALSAM PERU/CASTOR OIL 60 GM TUBE TP SCH ×3 (10:28→20:38)
[2021-08-03] MEDS: NYSTATIN 15 GM POWDER TP SCH ×2 (10:28→20:38)
[2021-08-03] MEDS: CEFTRIAXONE 1G VIAL IVP SCH (16:39)
[2021-08-04 03:39] VITALS: BP 126/77
[2021-08-04] MEDS: MORPHINE 2 MG SYG IVP PRN ×3 (05:10→18:03)
[2021-08-04] MEDS: INSULIN HUMULIN R 100 UNIT/ML 3ML SQ SCH ×4 (06:26→21:00)
[2021-08-04] MEDS: PANTOPRAZOLE 40 MG TAB DR PO SCH (06:26)
[2021-08-04 08:00] VITALS: BP 136/63
[2021-08-04] MEDS: LIPASE/PROTEASE/AMYLASE 5000/17000/24000 PO SCH ×3 (09:20→16:16)
[2021-08-04] MEDS: METOPROLOL TARTRATE 25 MG TAB PO SCH ×2 (09:20→21:48)
[2021-08-04] MEDS: FERROUS SULFATE 325 MG TABLET.DR PO SCH ×2 (09:20→21:48)
[2021-08-04] MEDS: MAGNESIUM OXIDE 400 MG TABLET PO SCH (09:20)
[2021-08-04] MEDS: TRAMADOL HCL 50 MG TABLET PO PRN ×2 (09:24→16:16)
[2021-08-04 12:01] VITALS: BP 118/56
[2021-08-04] MEDS: IRON SUCROSE COMPLEX 100 MG in 0.9%NACL 50ML 50 ML IV SCH (12:11)
[2021-08-04 16:00] VITALS: BP 129/82
[2021-08-04] MEDS: CEFTRIAXONE 1G VIAL IVP SCH (18:02)
[2021-08-04] MEDS: NYSTATIN 15 GM POWDER TP SCH ×2 (18:02→21:49)
[2021-08-04] MEDS: BALSAM PERU/CASTOR OIL 60 GM TUBE TP SCH ×3 (18:02→21:48)
[2021-08-04 20:00] VITALS: BP 128/81
[2021-08-04] MEDS: QUETIAPINE FUMARATE 100 MG TAB PO SCH (21:48)
[2021-08-04 23:37] VITALS: BP 121/75
[2021-08-05] MEDS: PANTOPRAZOLE 40 MG TAB DR PO SCH (05:53)
[2021-08-05] MEDS: INSULIN HUMULIN R 100 UNIT/ML 3ML SQ SCH ×4 (06:50→20:54)
[2021-08-05 08:00] VITALS: BP 99/63
[2021-08-05] MEDS: LIPASE/PROTEASE/AMYLASE 5000/17000/24000 PO SCH ×3 (08:52→18:07)
[2021-08-05] MEDS: IRON SUCROSE COMPLEX 100 MG in 0.9%NACL 50ML 50 ML IV SCH ×2 (08:52→08:56)
[2021-08-05] MEDS: MAGNESIUM OXIDE 400 MG TABLET PO SCH (08:52)
[2021-08-05] MEDS: METOPROLOL TARTRATE 25 MG TAB PO SCH ×2 (08:53→20:52)
[2021-08-05] MEDS: PAROXETINE HCL 20 MG TABLET PO SCH (08:53)
[2021-08-05] MEDS: FERROUS SULFATE 325 MG TABLET.DR PO SCH ×2 (08:53→20:52)
[2021-08-05] MEDS: NYSTATIN 15 GM POWDER TP SCH ×2 (09:20→20:57)
[2021-08-05] MEDS: BALSAM PERU/CASTOR OIL 60 GM TUBE TP SCH ×3 (09:22→20:57)
[2021-08-05 11:54] VITALS: BP 109/64
[2021-08-05] MEDS: CEFTRIAXONE 1G VIAL IVP SCH (13:50)
[2021-08-05] MEDS ORDERED: FLUOXETINE HCL 10 MG CAPSULE PO SCH (16:00)
[2021-08-05] MEDS ORDERED: COMPOUND PO REF 1 EA BTL MISC PRN (17:00)
[2021-08-05 19:00] VITALS: BP 120/75
[2021-08-05] MEDS ORDERED: MIRTAZAPINE 15 MG TABLET PO SCH (19:00)
[2021-08-05] MEDS: FLUOXETINE HCL 20 MG CAPSULE PO SCH (20:52)
[2021-08-05] MEDS: RISPERIDONE 1 MG TABLET PO SCH (20:53)
[2021-08-05] MEDS: QUETIAPINE FUMARATE 100 MG TAB PO SCH (20:53)
[2021-08-05 23:00] VITALS: BP 120/73
[2021-08-06 03:00] VITALS: BP 122/60
[2021-08-06] MEDS: PANTOPRAZOLE 40 MG TAB DR PO SCH (05:27)
[2021-08-06] MEDS: INSULIN HUMULIN R 100 UNIT/ML 3ML SQ SCH ×4 (06:08→22:33)
[2021-08-06 07:32] VITALS: BP 105/65
[2021-08-06 10:17] VITALS: BP 107/67
[2021-08-06] MEDS: IRON SUCROSE COMPLEX 100 MG in 0.9%NACL 50ML 50 ML IV SCH (11:03)
[2021-08-06] MEDS: LIPASE/PROTEASE/AMYLASE 5000/17000/24000 PO SCH (11:03)
[2021-08-06] MEDS: FLUOXETINE HCL 20 MG CAPSULE PO SCH ×2 (11:04→22:21)
[2021-08-06] MEDS: RISPERIDONE 1 MG TABLET PO SCH ×2 (11:04→22:21)
[2021-08-06] MEDS: MAGNESIUM OXIDE 400 MG TABLET PO SCH (11:04)
[2021-08-06] MEDS: FERROUS SULFATE 325 MG TABLET.DR PO SCH ×2 (11:04→22:20)
[2021-08-06] MEDS: METOPROLOL TARTRATE 25 MG TAB PO SCH ×2 (11:04→22:21)
[2021-08-06] MEDS: PAROXETINE HCL 20 MG TABLET PO SCH (11:05)
[2021-08-06] MEDS: BALSAM PERU/CASTOR OIL 60 GM TUBE TP SCH ×3 (11:06→22:23)
[2021-08-06] MEDS: NYSTATIN 15 GM POWDER TP SCH ×2 (11:06→22:23)
[2021-08-06 15:56] VITALS: BP 111/73
[2021-08-06 20:00] VITALS: BP 97/60
[2021-08-06] MEDS: QUETIAPINE FUMARATE 100 MG TAB PO SCH (22:20)
[2021-08-06] MEDS: MIRTAZAPINE 15 MG TABLET PO SCH (22:20)
[2021-08-07] VITALS: BP 101/68
[2021-08-07 04:00] VITALS: BP 111/70
[2021-08-07 04:37] LABS: MEAN CORPUSCULAR HEMOGLOBIN 30.4 pg (27.0-33.0); MEAN CORPUSCULAR HGB CONC 32.8 g/dL (32.0-36.0); MEAN CORPUSCULAR VOLUME 92.5 fL (79-99); RED BLOOD CELL COUNT(AUTO) 2.14 MIL/uL (4.50-6.20); RED CELL DISTRIBUTION WIDTH 17.4 % (11.0-15.5); WHITE BLOOD COUNT (AUTO) 6.3 K/uL (4.8-10.8)
[2021-08-07 04:46] LABS: HEMATOCRIT 19.8 % (42-54)
[2021-08-07 04:48] LABS: POTASSIUM 3.8 mmol/L (3.5-5.1)
[2021-08-07 06:16] LABS: HEMATOCRIT 22.1 % (42-54)
[2021-08-07] MEDS: INSULIN HUMULIN R 100 UNIT/ML 3ML SQ SCH ×4 (06:35→21:08)
[2021-08-07] MEDS: PANTOPRAZOLE 40 MG TAB DR PO SCH (06:51)
[2021-08-07 07:19] VITALS: BP 111/64
[2021-08-07] MEDS: IRON SUCROSE COMPLEX 100 MG in 0.9%NACL 50ML 50 ML IV SCH (09:17)
[2021-08-07] MEDS: FERROUS SULFATE 325 MG TABLET.DR PO SCH ×2 (09:17→19:43)
[2021-08-07] MEDS: METOPROLOL TARTRATE 25 MG TAB PO SCH ×2 (09:17→19:43)
[2021-08-07] MEDS: RISPERIDONE 1 MG TABLET PO SCH ×2 (09:17→19:43)
[2021-08-07] MEDS: FLUOXETINE HCL 20 MG CAPSULE PO SCH ×2 (09:17→19:43)
[2021-08-07] MEDS: MAGNESIUM OXIDE 400 MG TABLET PO SCH (09:17)
[2021-08-07] MEDS: BALSAM PERU/CASTOR OIL 60 GM TUBE TP SCH ×3 (09:18→19:51)
[2021-08-07] MEDS: NYSTATIN 15 GM POWDER TP SCH ×2 (09:18→19:51)
[2021-08-07] MEDS ORDERED: COMPOUND IV MISC 1 EACH IVSOLN MISC PRN (09:30)
[2021-08-07 10:07] VITALS: BP 106/64
[2021-08-07 15:57] VITALS: BP 108/73
[2021-08-07] MEDS: TRAMADOL HCL 50 MG TABLET PO PRN (17:18)
[2021-08-07] MEDS: QUETIAPINE FUMARATE 100 MG TAB PO SCH (19:43)
[2021-08-07] MEDS: MIRTAZAPINE 15 MG TABLET PO SCH (19:43)
[2021-08-07 20:00] VITALS: BP 113/73
[2021-08-08] VITALS: BP 115/67
[2021-08-08 04:00] VITALS: BP 113/69
[2021-08-08] MEDS: PANTOPRAZOLE 40 MG TAB DR PO SCH (06:40)
[2021-08-08] MEDS: INSULIN HUMULIN R 100 UNIT/ML 3ML SQ SCH ×4 (06:41→20:21)
[2021-08-08 08:00] VITALS: BP 103/66
[2021-08-08] MEDS: FLUOXETINE HCL 20 MG CAPSULE PO SCH ×2 (10:18→21:27)
[2021-08-08] MEDS: IRON SUCROSE COMPLEX 100 MG in 0.9%NACL 50ML 50 ML IV SCH (10:18)
[2021-08-08] MEDS: MAGNESIUM OXIDE 400 MG TABLET PO SCH (10:18)
[2021-08-08] MEDS: RISPERIDONE 1 MG TABLET PO SCH ×2 (10:18→21:27)
[2021-08-08] MEDS: FERROUS SULFATE 325 MG TABLET.DR PO SCH ×2 (10:18→21:27)
[2021-08-08] MEDS: METOPROLOL TARTRATE 25 MG TAB PO SCH ×2 (10:18→21:28)
[2021-08-08] MEDS: BALSAM PERU/CASTOR OIL 60 GM TUBE TP SCH ×2 (10:19→21:35)
[2021-08-08] MEDS: NYSTATIN 15 GM POWDER TP SCH ×2 (10:19→21:36)
[2021-08-08 11:32] VITALS: BP 111/70
[2021-08-08] MEDS ORDERED: COMPOUND PO MISCELLANEOUS 1 EACH MISC MISC PRN (12:00)
[2021-08-08] MEDS: [UNRECOGNIZED DRUG - OTHER] PO SCH ×4 (12:39→21:30)
[2021-08-08] MEDS: VANCOMYCIN PO SCH ×4 (12:39→21:30)
[2021-08-08 16:00] VITALS: BP 114/71
[2021-08-08 20:00] VITALS: BP 113/70
[2021-08-08] MEDS: MIRTAZAPINE 15 MG TABLET PO SCH (21:27)
[2021-08-08] MEDS: QUETIAPINE FUMARATE 100 MG TAB PO SCH (21:27)
[2021-08-09] VITALS: BP 110/66
[2021-08-09] MEDS: VANCOMYCIN PO SCH ×8 (01:10→20:17)
[2021-08-09] MEDS: [UNRECOGNIZED DRUG - OTHER] PO SCH ×8 (01:10→20:17)
[2021-08-09 04:00] VITALS: BP 110/66
[2021-08-09] MEDS: PANTOPRAZOLE 40 MG TAB DR PO SCH (05:52)
[2021-08-09] MEDS: INSULIN HUMULIN R 100 UNIT/ML 3ML SQ SCH ×4 (06:00→21:00)
[2021-08-09 07:25] VITALS: BP 114/70
[2021-08-09] MEDS: IRON SUCROSE COMPLEX 100 MG in 0.9%NACL 50ML 50 ML IV SCH (09:39)
[2021-08-09] MEDS: FLUOXETINE HCL 20 MG CAPSULE PO SCH ×2 (09:40→21:15)
[2021-08-09] MEDS: RISPERIDONE 1 MG TABLET PO SCH ×2 (09:41→21:14)
[2021-08-09] MEDS: FERROUS SULFATE 325 MG TABLET.DR PO SCH ×2 (09:41→21:14)
[2021-08-09] MEDS: METOPROLOL TARTRATE 25 MG TAB PO SCH ×2 (09:41→21:15)
[2021-08-09] MEDS: MAGNESIUM OXIDE 400 MG TABLET PO SCH (09:41)
[2021-08-09] MEDS: BALSAM PERU/CASTOR OIL 60 GM TUBE TP SCH (09:42)
[2021-08-09] MEDS: NYSTATIN 15 GM POWDER TP SCH ×2 (09:42→21:15)
[2021-08-09 11:33] VITALS: BP 108/71
[2021-08-09 15:26] VITALS: BP 108/71
[2021-08-09 20:00] VITALS: BP 118/73
[2021-08-09] MEDS: MIRTAZAPINE 15 MG TABLET PO SCH (21:14)
[2021-08-09] MEDS: QUETIAPINE FUMARATE 100 MG TAB PO SCH (21:15)
[2021-08-10] VITALS: BP 128/74
[2021-08-10] MEDS: [UNRECOGNIZED DRUG - OTHER] PO SCH ×8 (01:00→19:54)
[2021-08-10] MEDS: VANCOMYCIN PO SCH ×8 (01:00→19:54)
[2021-08-10 04:00] VITALS: BP 116/74
[2021-08-10] MEDS: PANTOPRAZOLE 40 MG TAB DR PO SCH (05:47)
[2021-08-10] MEDS: INSULIN HUMULIN R 100 UNIT/ML 3ML SQ SCH ×4 (06:31→21:00)
[2021-08-10 08:46] VITALS: BP 116/70
[2021-08-10] MEDS: FLUOXETINE HCL 20 MG CAPSULE PO SCH ×2 (09:11→21:15)
[2021-08-10] MEDS: FERROUS SULFATE 325 MG TABLET.DR PO SCH ×2 (09:11→21:15)
[2021-08-10] MEDS: METOPROLOL TARTRATE 25 MG TAB PO SCH ×2 (09:11→21:15)
[2021-08-10] MEDS: RISPERIDONE 1 MG TABLET PO SCH ×2 (09:12→21:14)
[2021-08-10] MEDS: MAGNESIUM OXIDE 400 MG TABLET PO SCH (09:12)
[2021-08-10] MEDS: IRON SUCROSE COMPLEX 100 MG in 0.9%NACL 50ML 50 ML IV SCH (09:13)
[2021-08-10] MEDS: NYSTATIN 15 GM POWDER TP SCH ×2 (09:14→21:15)
[2021-08-10 09:56] LABS: HEMATOCRIT 22.6 % (42-54); MEAN CORPUSCULAR HGB CONC 34.1 g/dL (32.0-36.0); MEAN CORPUSCULAR VOLUME 91.1 fL (79-99); PLATELET COUNT (AUTO) 181 K/uL (130-400); RED BLOOD CELL COUNT(AUTO) 2.48 MIL/uL (4.50-6.20); RED CELL DISTRIBUTION WIDTH 18.4 % (11.0-15.5); WHITE BLOOD COUNT (AUTO) 7.1 K/uL (4.8-10.8)
[2021-08-10 10:14] LABS: CREATININE 0.9 mg/dL (0.5-1.5); POTASSIUM 3.2 mmol/L (3.5-5.1)
[2021-08-10 12:00] VITALS: BP 132/89
[2021-08-10 19:20] VITALS: BP 110/71
[2021-08-10] MEDS: QUETIAPINE FUMARATE 100 MG TAB PO SCH (21:14)
[2021-08-10] MEDS: MIRTAZAPINE 15 MG TABLET PO SCH (21:14)
[2021-08-11] MEDS: VANCOMYCIN PO SCH ×8 (01:22→18:39)
[2021-08-11] MEDS: [UNRECOGNIZED DRUG - OTHER] PO SCH ×8 (01:22→18:39)
[2021-08-11 01:30] VITALS: BP 95/53
[2021-08-11 03:30] VITALS: BP 92/53
[2021-08-11 04:00] VITALS: BP 104/66
[2021-08-11] MEDS ORDERED: TRAMADOL HCL 50 MG TABLET PO ONE (04:00)
[2021-08-11 04:08] LABS: HEMATOCRIT 23.9 % (42-54); MEAN CORPUSCULAR HEMOGLOBIN 30.9 pg (27.0-33.0); MEAN CORPUSCULAR HGB CONC 33.5 g/dL (32.0-36.0); MEAN CORPUSCULAR VOLUME 92.3 fL (79-99); RED BLOOD CELL COUNT(AUTO) 2.59 MIL/uL (4.50-6.20); RED CELL DISTRIBUTION WIDTH 19.1 % (11.0-15.5); WHITE BLOOD COUNT (AUTO) 7.5 K/uL (4.8-10.8)
[2021-08-11 04:37] LABS: POTASSIUM 3.5 mmol/L (3.5-5.1)
[2021-08-11] MEDS: INSULIN HUMULIN R 100 UNIT/ML 3ML SQ SCH ×4 (05:55→21:00)
[2021-08-11] MEDS: PANTOPRAZOLE 40 MG TAB DR PO SCH (05:56)
[2021-08-11] MEDS: METOPROLOL TARTRATE 25 MG TAB PO SCH ×2 (09:00→22:54)
[2021-08-11] MEDS: MAGNESIUM OXIDE 400 MG TABLET PO SCH (09:10)
[2021-08-11] MEDS: FERROUS SULFATE 325 MG TABLET.DR PO SCH ×2 (09:10→22:54)
[2021-08-11] MEDS: RISPERIDONE 1 MG TABLET PO SCH ×2 (09:10→22:55)
[2021-08-11] MEDS: FLUOXETINE HCL 20 MG CAPSULE PO SCH ×2 (09:10→22:54)
[2021-08-11] MEDS: IRON SUCROSE COMPLEX 100 MG in 0.9%NACL 50ML 50 ML IV SCH (09:11)
[2021-08-11] MEDS: NYSTATIN 15 GM POWDER TP SCH ×2 (09:22→22:55)
[2021-08-11 15:35] VITALS: BP 102/63
[2021-08-11] MEDS ORDERED: ACETAMINOPHEN WITH CODEINE 1 TAB TAB PO SCH (18:30)
[2021-08-11 20:00] VITALS: BP 115/82
[2021-08-11] MEDS ORDERED: ONDANSETRON 4MG INJ IVP SCH (20:00)
[2021-08-11] MEDS: QUETIAPINE FUMARATE 100 MG TAB PO SCH (22:54)
[2021-08-11] MEDS: MIRTAZAPINE 15 MG TABLET PO SCH (22:54)
[2021-08-11 23:05] VITALS: BP 106/62
[2021-08-12] MEDS: [UNRECOGNIZED DRUG - OTHER] PO SCH ×8 (01:14→18:35)
[2021-08-12] MEDS: VANCOMYCIN PO SCH ×8 (01:14→18:35)
[2021-08-12 03:15] VITALS: BP 102/62
[2021-08-12] MEDS: INSULIN HUMULIN R 100 UNIT/ML 3ML SQ SCH ×4 (06:53→20:38)
[2021-08-12] MEDS ORDERED: ONDANSETRON 4MG INJ ONE (06:55)
[2021-08-12] MEDS: PANTOPRAZOLE 40 MG TAB DR PO SCH (06:59)
[2021-08-12] MEDS: METOPROLOL TARTRATE 25 MG TAB PO SCH ×2 (09:00→23:47)
[2021-08-12 10:12] VITALS: BP 102/67
[2021-08-12] MEDS: FERROUS SULFATE 325 MG TABLET.DR PO SCH ×2 (10:14→20:11)
[2021-08-12] MEDS: MAGNESIUM OXIDE 400 MG TABLET PO SCH (10:14)
[2021-08-12] MEDS: RISPERIDONE 1 MG TABLET PO SCH ×2 (10:14→20:11)
[2021-08-12] MEDS: IRON SUCROSE COMPLEX 100 MG in 0.9%NACL 50ML 50 ML IV SCH (10:14)
[2021-08-12] MEDS: FLUOXETINE HCL 20 MG CAPSULE PO SCH ×2 (10:14→20:11)
[2021-08-12] MEDS: NYSTATIN 15 GM POWDER TP SCH ×2 (10:15→20:14)
[2021-08-12 11:25] VITALS: BP 95/62
[2021-08-12 15:41] VITALS: BP 111/72
[2021-08-12 20:00] VITALS: BP 98/60
[2021-08-12] MEDS: MIRTAZAPINE 15 MG TABLET PO SCH (20:11)
[2021-08-12] MEDS: QUETIAPINE FUMARATE 100 MG TAB PO SCH (20:11)
[2021-08-13] VITALS (7 sets, daily range): BP systolic 100–118; BP diastolic 61–74
[2021-08-13] MEDS: VANCOMYCIN PO SCH ×8 (01:59→18:51)
[2021-08-13] MEDS: [UNRECOGNIZED DRUG - OTHER] PO SCH ×8 (01:59→18:51)
[2021-08-13] MEDS: INSULIN HUMULIN R 100 UNIT/ML 3ML SQ SCH ×4 (06:14→20:46)
[2021-08-13] MEDS: PANTOPRAZOLE 40 MG TAB DR PO SCH (06:46)
[2021-08-13] MEDS: METOPROLOL TARTRATE 25 MG TAB PO SCH ×2 (08:44→20:42)
[2021-08-13] MEDS: IRON SUCROSE COMPLEX 100 MG in 0.9%NACL 50ML 50 ML IV SCH (08:44)
[2021-08-13] MEDS: RISPERIDONE 1 MG TABLET PO SCH ×2 (08:45→20:42)
[2021-08-13] MEDS: MAGNESIUM OXIDE 400 MG TABLET PO SCH (08:45)
[2021-08-13] MEDS: FERROUS SULFATE 325 MG TABLET.DR PO SCH ×2 (08:45→20:42)
[2021-08-13] MEDS: FLUOXETINE HCL 20 MG CAPSULE PO SCH ×2 (08:45→20:42)
[2021-08-13] MEDS: NYSTATIN 15 GM POWDER TP SCH ×2 (08:46→20:47)
[2021-08-13] MEDS ORDERED: TRAMADOL HCL 50 MG TABLET PO SCH (16:00)
[2021-08-13] MEDS ORDERED: TRAMADOL HCL 50 MG TABLET ONE (16:07)
[2021-08-13] MEDS: QUETIAPINE FUMARATE 100 MG TAB PO SCH (20:42)
[2021-08-13] MEDS: MIRTAZAPINE 15 MG TABLET PO SCH (20:42)
[2021-08-14] MEDS: [UNRECOGNIZED DRUG - OTHER] PO SCH ×8 (00:27→21:32)
[2021-08-14] MEDS: VANCOMYCIN PO SCH ×8 (00:27→21:32)
[2021-08-14 04:00] VITALS: BP 101/69
[2021-08-14 04:55] LABS: EOSINOPHILS % (AUTO) 0.6 % (0.0-8.0); HEMATOCRIT 27.8 % (42-54); LYMPHOCYTES % (AUTO) 14.4 % (21.0-51.0); MEAN CORPUSCULAR HEMOGLOBIN 30.2 pg (27.0-33.0); MEAN CORPUSCULAR HGB CONC 32.7 g/dL (32.0-36.0); MEAN CORPUSCULAR VOLUME 92.4 fL (79-99); MONOCYTES % (AUTO) 1.9 % (3.0-13.0); PLATELET COUNT (AUTO) 155 K/uL (130-400); RED BLOOD CELL COUNT(AUTO) 3.01 MIL/uL (4.50-6.20); WHITE BLOOD COUNT (AUTO) 5.3 K/uL (4.8-10.8)
[2021-08-14 05:09] LABS: CREATININE 0.9 mg/dL (0.5-1.5); POTASSIUM 3.6 mmol/L (3.5-5.1)
[2021-08-14] MEDS: INSULIN HUMULIN R 100 UNIT/ML 3ML SQ SCH ×4 (06:11→21:00)
[2021-08-14 08:00] VITALS: BP 103/61
[2021-08-14] MEDS: IRON SUCROSE COMPLEX 100 MG in 0.9%NACL 50ML 50 ML IV SCH (10:10)
[2021-08-14] MEDS: METOPROLOL TARTRATE 25 MG TAB PO SCH ×2 (10:15→21:00)
[2021-08-14] MEDS: FLUOXETINE HCL 20 MG CAPSULE PO SCH ×2 (10:15→21:29)
[2021-08-14] MEDS: FERROUS SULFATE 325 MG TABLET.DR PO SCH ×2 (10:15→21:29)
[2021-08-14] MEDS: NYSTATIN 15 GM POWDER TP SCH ×2 (10:16→21:30)
[2021-08-14] MEDS: RISPERIDONE 1 MG TABLET PO SCH ×2 (10:16→21:29)
[2021-08-14] MEDS ORDERED: TRAMADOL HCL 50 MG TABLET PO SCH (11:30)
[2021-08-14 12:00] VITALS: BP 93/59
[2021-08-14 16:00] VITALS: BP 91/65
[2021-08-14 19:51] VITALS: BP 92/62
[2021-08-14] MEDS: MIRTAZAPINE 15 MG TABLET PO SCH (21:29)
[2021-08-14] MEDS: QUETIAPINE FUMARATE 100 MG TAB PO SCH (21:30)
[2021-08-14 23:50] VITALS: BP 95/61
[2021-08-15 04:08] VITALS: BP 99/58
[2021-08-15] MEDS: TRAMADOL HCL 50 MG TABLET PO PRN ×3 (04:54→18:41)
[2021-08-15] MEDS: [UNRECOGNIZED DRUG - OTHER] PO SCH ×8 (04:55→18:35)
[2021-08-15] MEDS: VANCOMYCIN PO SCH ×8 (04:55→18:35)
[2021-08-15] MEDS: INSULIN HUMULIN R 100 UNIT/ML 3ML SQ SCH ×4 (05:49→21:00)
[2021-08-15 08:00] VITALS: BP 91/55
[2021-08-15] MEDS: IRON SUCROSE COMPLEX 100 MG in 0.9%NACL 50ML 50 ML IV SCH (09:00)
[2021-08-15] MEDS: METOPROLOL TARTRATE 25 MG TAB PO SCH ×2 (09:00→21:00)
[2021-08-15] MEDS: FERROUS SULFATE 325 MG TABLET.DR PO SCH ×2 (09:36→21:34)
[2021-08-15] MEDS: FLUOXETINE HCL 20 MG CAPSULE PO SCH ×2 (09:36→21:33)
[2021-08-15] MEDS: RISPERIDONE 1 MG TABLET PO SCH ×2 (09:36→21:33)
[2021-08-15] MEDS: NYSTATIN 15 GM POWDER TP SCH (10:32)
[2021-08-15 11:36] VITALS: BP 106/76
[2021-08-15 16:00] VITALS: BP 96/63
[2021-08-15 20:43] VITALS: BP_SYST 100; BP_SYST 91; BP_DIAS 61; BP_DIAS 63
[2021-08-15] MEDS: MIRTAZAPINE 15 MG TABLET PO SCH (21:34)
[2021-08-15] MEDS: QUETIAPINE FUMARATE 100 MG TAB PO SCH (21:34)
[2021-08-16] VITALS (8 sets, daily range): BP systolic 87–112; BP diastolic 55–78
[2021-08-16] MEDS: VANCOMYCIN PO SCH ×8 (00:10→19:18)
[2021-08-16] MEDS: [UNRECOGNIZED DRUG - OTHER] PO SCH ×8 (00:10→19:18)
[2021-08-16] MEDS: TRAMADOL HCL 50 MG TABLET PO PRN ×2 (00:16→09:03)
[2021-08-16] MEDS: INSULIN HUMULIN R 100 UNIT/ML 3ML SQ SCH ×4 (06:06→21:00)
[2021-08-16] MEDS: IRON SUCROSE COMPLEX 100 MG in 0.9%NACL 50ML 50 ML IV SCH (09:00)
[2021-08-16] MEDS: METOPROLOL TARTRATE 25 MG TAB PO SCH ×2 (09:00→21:00)
[2021-08-16] MEDS: FLUOXETINE HCL 20 MG CAPSULE PO SCH ×2 (09:02→22:03)
[2021-08-16] MEDS: FERROUS SULFATE 325 MG TABLET.DR PO SCH ×2 (09:03→22:03)
[2021-08-16] MEDS: RISPERIDONE 1 MG TABLET PO SCH ×2 (09:03→22:04)
[2021-08-16] MEDS: MIRTAZAPINE 15 MG TABLET PO SCH (22:03)
[2021-08-16] MEDS: QUETIAPINE FUMARATE 100 MG TAB PO SCH (22:04)
[2021-08-17] VITALS (7 sets, daily range): BP systolic 84–114; BP diastolic 54–67
[2021-08-17] MEDS: VANCOMYCIN PO SCH ×8 (01:19→21:47)
[2021-08-17] MEDS: [UNRECOGNIZED DRUG - OTHER] PO SCH ×8 (01:19→21:47)
[2021-08-17] MEDS: INSULIN HUMULIN R 100 UNIT/ML 3ML SQ SCH ×4 (06:08→21:00)
[2021-08-17] MEDS: IRON SUCROSE COMPLEX 100 MG in 0.9%NACL 50ML 50 ML IV SCH (09:00)
[2021-08-17] MEDS: FERROUS SULFATE 325 MG TABLET.DR PO SCH ×2 (12:19→21:48)
[2021-08-17] MEDS: RISPERIDONE 1 MG TABLET PO SCH ×2 (12:20→21:48)
[2021-08-17] MEDS: METOPROLOL TARTRATE 25 MG TAB PO SCH ×2 (12:20→21:00)
[2021-08-17] MEDS: FLUOXETINE HCL 20 MG CAPSULE PO SCH ×2 (12:20→21:48)
[2021-08-17] MEDS: TRAMADOL HCL 50 MG TABLET PO PRN ×2 (12:47→22:01)
[2021-08-17] MEDS: MIRTAZAPINE 15 MG TABLET PO SCH (21:48)
[2021-08-17] MEDS: QUETIAPINE FUMARATE 100 MG TAB PO SCH (21:48)
[2021-08-18] VITALS (14 sets, daily range): BP systolic 92–127; BP diastolic 54–89
[2021-08-18] MEDS: VANCOMYCIN PO SCH ×4 (04:05→07:00)
[2021-08-18] MEDS: [UNRECOGNIZED DRUG - OTHER] PO SCH ×4 (04:05→07:00)
[2021-08-18] MEDS: TRAMADOL HCL 50 MG TABLET PO PRN ×2 (04:19→20:20)
[2021-08-18] MEDS ORDERED: GLUCAGON 1MG KIT 1 MG ML IM STA (05:41)
[2021-08-18] MEDS: INSULIN HUMULIN R 100 UNIT/ML 3ML SQ SCH ×4 (05:57→21:00)
[2021-08-18] MEDS: RISPERIDONE 1 MG TABLET PO SCH ×2 (09:00→21:00)
[2021-08-18] MEDS: METOPROLOL TARTRATE 25 MG TAB PO SCH ×2 (09:00→21:00)
[2021-08-18] MEDS: IRON SUCROSE COMPLEX 100 MG in 0.9%NACL 50ML 50 ML IV SCH (09:00)
[2021-08-18] MEDS: FLUOXETINE HCL 20 MG CAPSULE PO SCH ×2 (10:14→20:20)
[2021-08-18] MEDS: FERROUS SULFATE 325 MG TABLET.DR PO SCH ×2 (10:15→20:20)
[2021-08-18 10:51] LABS: ABG BASE EXCESS -13.6 mmol/L (-2.0-3.0); ABG OXYGEN SATURATION 98.8 % (95.0-99.0); ABG PCO2 24 mmHg (35-48)
[2021-08-18 11:18] LABS: % IRON SATURATION 172.5 % (30-44)
[2021-08-18 11:24] LABS: CREATININE 1.1 mg/dL (0.5-1.5); POTASSIUM 3.5 mmol/L (3.5-5.1)
[2021-08-18 11:49] LABS: EOSINOPHILS % (AUTO) 0.3 % (0.0-8.0); MEAN CORPUSCULAR HEMOGLOBIN 31.1 pg (27.0-33.0); MEAN CORPUSCULAR HGB CONC 33.3 g/dL (32.0-36.0); MEAN CORPUSCULAR VOLUME 93.4 fL (79-99); MONOCYTES % (AUTO) 0.6 % (3.0-13.0); NEUTROPHILS % (AUTO) 90.8 % (40.0-77.0); PLATELET COUNT (AUTO) 64 K/uL (130-400); RED BLOOD CELL COUNT(AUTO) 2.12 MIL/uL (4.50-6.20); WHITE BLOOD COUNT (AUTO) 3.5 K/uL (4.8-10.8)
[2021-08-18 11:51] LABS: ALBUMIN 0.7 g/dL (3.5-5.0); BILIRUBIN,TOTAL 0.1 mg/dL (0.2-1.0); TOTAL PROTEIN, SERUM 4.4 g/dL (6.0-8.3)
[2021-08-18 12:10] LABS: HEMATOCRIT 19.8 % (42-54)
[2021-08-18 12:38] LABS: PLATELET MORPHOLOGY COMMENT DECREASED
[2021-08-18 13:03] LABS: PARTIAL THROMBOPLASTIN TIME 45.6 SEC (26.3-35.5)
[2021-08-18 13:31] LABS: INR 1.15 (0.85-1.15); PROTHROMBIN TIME 12.4 SEC (9.6-11.6)
[2021-08-18] MEDS ORDERED: MORPHINE 2 MG SYG ONE (16:11)
[2021-08-18] MEDS: SODIUM BICARB 50MEQ 50ML VIAL IV SCH ×2 (16:16)
[2021-08-18] MEDS ORDERED: DEXTROSE 50%-WATER 50 ML DISP.SYRIN IV ONE (18:08)
[2021-08-18] MEDS: MORPHINE 2 MG SYG IVP PRN ×2 (18:16→20:50)
[2021-08-18] MEDS ORDERED: 0.9% NACL 500ML IV.SOLN 500 ML IV ONE (19:09)
[2021-08-18] MEDS ORDERED: LACTATED RINGERS 1000ML 1,000 ML IV SCH (19:30)
[2021-08-18] MEDS: MIRTAZAPINE 15 MG TABLET PO SCH (20:20)
[2021-08-18] MEDS: QUETIAPINE FUMARATE 100 MG TAB PO SCH (20:20)
[2021-08-19] VITALS (12 sets, daily range): BP systolic 108–136; BP diastolic 71–83
[2021-08-19] MEDS ORDERED: DEXTROSE 50%-WATER 50 ML DISP.SYRIN IV ONE (01:26)
[2021-08-19] MEDS ORDERED: DEXTROSE 5%-WATER 1,000 ML IV ONE ×2 (01:41→02:00)
[2021-08-19 04:22] LABS: ABG HCO3 12.9 mmol/L (21.0-28.0); ABG OXYGEN SATURATION 88.3 % (95.0-99.0); ABG PCO2 30 mmHg (35-48)
[2021-08-19 04:50] LABS: HEMATOCRIT 25.6 % (42-54); MEAN CORPUSCULAR HEMOGLOBIN 30.2 pg (27.0-33.0); MEAN CORPUSCULAR HGB CONC 33.6 g/dL (32.0-36.0); MEAN CORPUSCULAR VOLUME 89.8 fL (79-99); RED BLOOD CELL COUNT(AUTO) 2.85 MIL/uL (4.50-6.20); RED CELL DISTRIBUTION WIDTH 19.1 % (11.0-15.5)
[2021-08-19 04:57] LABS: CREATININE 1.1 mg/dL (0.5-1.5); POTASSIUM 3.5 mmol/L (3.5-5.1)
[2021-08-19] MEDS: INSULIN HUMULIN R 100 UNIT/ML 3ML SQ SCH (06:41)
[2021-08-19] MEDS: FLUOXETINE HCL 20 MG CAPSULE PO SCH ×2 (08:10→21:24)
[2021-08-19] MEDS: FERROUS SULFATE 325 MG TABLET.DR PO SCH ×2 (08:10→21:24)
[2021-08-19] MEDS: MORPHINE 2 MG SYG IVP PRN ×2 (08:16→16:02)
[2021-08-19] MEDS: DEXTROSE 5%-LACTATED RINGERS 1,000 ML IV SCH (09:00)
[2021-08-19] MEDS: IRON SUCROSE COMPLEX 100 MG in 0.9%NACL 50ML 50 ML IV SCH (09:00)
[2021-08-19] MEDS: METOPROLOL TARTRATE 25 MG TAB PO SCH ×2 (09:00→21:00)
[2021-08-19] MEDS: RISPERIDONE 1 MG TABLET PO SCH ×2 (09:00→21:24)
[2021-08-19] MEDS: FAMOTIDINE 20MG TAB PO SCH ×2 (09:03→21:24)
[2021-08-19] MEDS: ASPIRIN 81MG CHEW TAB PO SCH (09:04)
[2021-08-19] MEDS: SODIUM BICARB 50MEQ 50ML VIAL IV SCH ×2 (11:18→16:01)
[2021-08-19] MEDS: MIRTAZAPINE 15 MG TABLET PO SCH (21:24)
[2021-08-19] MEDS: QUETIAPINE FUMARATE 100 MG TAB PO SCH (21:24)
[2021-08-19] MEDS: BALSAM PERU/CASTOR OIL 60 GM TUBE TP SCH (21:30)
[2021-08-20] MEDS: MORPHINE 2 MG SYG IVP PRN ×2 (01:46→16:47)
[2021-08-20] MEDS: RISPERIDONE 1 MG TABLET PO SCH ×2 (08:53→21:00)
[2021-08-20] MEDS: FLUOXETINE HCL 20 MG CAPSULE PO SCH ×2 (08:53→21:00)
[2021-08-20] MEDS: FERROUS SULFATE 325 MG TABLET.DR PO SCH ×2 (08:53→21:00)
[2021-08-20] MEDS: FAMOTIDINE 20MG TAB PO SCH ×2 (08:54→21:00)
[2021-08-20] MEDS: IRON SUCROSE COMPLEX 100 MG in 0.9%NACL 50ML 50 ML IV SCH (08:54)
[2021-08-20] MEDS: ASPIRIN 81MG CHEW TAB PO SCH (08:54)
[2021-08-20] MEDS: METOPROLOL TARTRATE 25 MG TAB PO SCH ×2 (08:54→21:00)
[2021-08-20] MEDS: BALSAM PERU/CASTOR OIL 60 GM TUBE TP SCH ×2 (09:07→21:00)
[2021-08-20] MEDS ORDERED: SODIUM BICARB 50MEQ 50ML VIAL IV SCH (09:45)
[2021-08-20] MEDS: SODIUM BICARB 50MEQ 50ML VIAL IV SCH ×2 (11:18→11:40)
[2021-08-20] MEDS: SODIUM BICARBONATE 650 MG TAB PO SCH ×2 (14:00→21:00)
[2021-08-20 16:30] VITALS: BP 92/62
[2021-08-20] MEDS: QUETIAPINE FUMARATE 100 MG TAB PO SCH (21:00)
[2021-08-20] MEDS: MIRTAZAPINE 15 MG TABLET PO SCH (21:00)
[2021-08-20] MEDS: DEXTROSE 5%-LACTATED RINGERS 1,000 ML IV SCH (23:30)
[2021-08-21] MEDS: MORPHINE 2 MG SYG IVP PRN ×3 (00:30→13:18)
[2021-08-21] MEDS: DEXTROSE 5%-LACTATED RINGERS 1,000 ML IV SCH (01:00)
[2021-08-21] MEDS ORDERED: DEXTROSE 50%-WATER 50 ML DISP.SYRIN IV ONE ×3 (01:04→06:37)
[2021-08-21 05:09] LABS: HEMATOCRIT 26.2 % (42-54); MEAN CORPUSCULAR HEMOGLOBIN 29.5 pg (27.0-33.0); MEAN CORPUSCULAR HGB CONC 33.2 g/dL (32.0-36.0); MEAN CORPUSCULAR VOLUME 88.8 fL (79-99); PLATELET COUNT (AUTO) 25 K/uL (130-400); RED BLOOD CELL COUNT(AUTO) 2.95 MIL/uL (4.50-6.20); RED CELL DISTRIBUTION WIDTH 19.9 % (11.0-15.5); WHITE BLOOD COUNT (AUTO) 2.6 K/uL (4.8-10.8)
[2021-08-21 05:24] LABS: CREATININE 1.1 mg/dL (0.5-1.5); POTASSIUM 3.8 mmol/L (3.5-5.1)
[2021-08-21 05:55] LABS: BAND NEUTROPHILS % (MANUAL) 1 % (0-2); EOSINOPHILS % (MANUAL) 1 % (1-6); LYMPHOCYTES % (MANUAL) 10 % (22-44); MAN.DIFF COMMENT-IMPRESSION MANUAL DIFFERENTIAL; MONOCYTES % (MANUAL) 1 % (2-9); SEGMENTED NEUTROPHILS % 87 % (40-70)
[2021-08-21 05:56] LABS: PLATELET MORPHOLOGY COMMENT DECREASED
[2021-08-21] MEDS ORDERED: GLUCAGON 1MG KIT 1 MG ML IM PRN (07:00)
[2021-08-21] MEDS: METOPROLOL TARTRATE 25 MG TAB PO SCH (09:00)
[2021-08-21] MEDS: RISPERIDONE 1 MG TABLET PO SCH ×2 (09:00→21:22)
[2021-08-21] MEDS: FERROUS SULFATE 325 MG TABLET.DR PO SCH ×2 (10:02→21:22)
[2021-08-21] MEDS: FAMOTIDINE 20MG TAB PO SCH ×2 (10:02→21:22)
[2021-08-21] MEDS: ASPIRIN 81MG CHEW TAB PO SCH (10:02)
[2021-08-21] MEDS: FLUOXETINE HCL 20 MG CAPSULE PO SCH ×2 (10:02→21:22)
[2021-08-21] MEDS: SODIUM BICARBONATE 650 MG TAB PO SCH ×3 (10:02→21:23)
[2021-08-21] MEDS: IRON SUCROSE COMPLEX 100 MG in 0.9%NACL 50ML 50 ML IV SCH (10:03)
[2021-08-21] MEDS: BALSAM PERU/CASTOR OIL 60 GM TUBE TP SCH ×2 (10:04→21:23)
[2021-08-21] MEDS: SODIUM BICARB 50MEQ 50ML VIAL IV SCH ×2 (11:18→14:25)
[2021-08-21 12:00] VITALS: BP 93/63
[2021-08-21] MEDS: DEXTROSE 50%-WATER 50 ML DISP.SYRIN IV PRN ×3 (12:37→20:31)
[2021-08-21 16:00] VITALS: BP 112/72
[2021-08-21 20:00] VITALS: BP 92/65
[2021-08-21] MEDS: DEXTROSE 10%-WATER 1,000 ML IV SCH (20:09)
[2021-08-21] MEDS: MIRTAZAPINE 15 MG TABLET PO SCH (21:22)
[2021-08-21] MEDS: QUETIAPINE FUMARATE 100 MG TAB PO SCH (21:22)
[2021-08-22] VITALS: BP 105/72
[2021-08-22] MEDS: MORPHINE 2 MG SYG IVP PRN ×2 (01:52→23:16)
[2021-08-22 04:00] VITALS: BP 93/66
[2021-08-22] MEDS: DEXTROSE 50%-WATER 50 ML DISP.SYRIN IV PRN ×3 (05:15→21:15)
[2021-08-22 05:28] LABS: HEMATOCRIT 24.6 % (42-54); MEAN CORPUSCULAR HEMOGLOBIN 28.9 pg (27.0-33.0); MEAN CORPUSCULAR HGB CONC 32.9 g/dL (32.0-36.0); MEAN CORPUSCULAR VOLUME 87.9 fL (79-99); PLATELET COUNT (AUTO) 19 K/uL (130-400); RED CELL DISTRIBUTION WIDTH 20.1 % (11.0-15.5); WHITE BLOOD COUNT (AUTO) 1.8 K/uL (4.8-10.8)
[2021-08-22 05:32] LABS: CREATININE 1.2 mg/dL (0.5-1.5); POTASSIUM 3.8 mmol/L (3.5-5.1)
[2021-08-22 08:00] VITALS: BP 100/69
[2021-08-22] MEDS: ASPIRIN 81MG CHEW TAB PO SCH (09:01)
[2021-08-22] MEDS: IRON SUCROSE COMPLEX 100 MG in 0.9%NACL 50ML 50 ML IV SCH (09:01)
[2021-08-22] MEDS: FAMOTIDINE 20MG TAB PO SCH ×2 (09:01→21:14)
[2021-08-22] MEDS: FLUOXETINE HCL 20 MG CAPSULE PO SCH ×2 (09:01→21:14)
[2021-08-22] MEDS: RISPERIDONE 1 MG TABLET PO SCH ×2 (09:01→21:14)
[2021-08-22] MEDS: SODIUM BICARBONATE 650 MG TAB PO SCH ×3 (09:02→21:14)
[2021-08-22] MEDS: BALSAM PERU/CASTOR OIL 60 GM TUBE TP SCH ×2 (09:02→21:27)
[2021-08-22] MEDS: FERROUS SULFATE 325 MG TABLET.DR PO SCH ×2 (09:02→21:14)
[2021-08-22] MEDS: SODIUM BICARB 50MEQ 50ML VIAL IV SCH ×2 (11:43→11:55)
[2021-08-22 12:00] VITALS: BP 95/67
[2021-08-22] MEDS: DEXTROSE 10%-WATER 1,000 ML IV SCH (15:00)
[2021-08-22 16:00] VITALS: BP 91/49
[2021-08-22 20:00] VITALS: BP 93/59
[2021-08-22] MEDS: MIRTAZAPINE 15 MG TABLET PO SCH (21:14)
[2021-08-22] MEDS: QUETIAPINE FUMARATE 100 MG TAB PO SCH (21:14)
[2021-08-23] VITALS: BP 93/66
[2021-08-23 04:00] VITALS: BP 95/61
[2021-08-23] MEDS: SODIUM BICARB 50MEQ 50ML VIAL IV SCH ×2 (07:26)
[2021-08-23 08:00] VITALS: BP 66/40
[2021-08-23] MEDS: IRON SUCROSE COMPLEX 100 MG in 0.9%NACL 50ML 50 ML IV SCH (08:22)
[2021-08-23] MEDS: ASPIRIN 81MG CHEW TAB PO SCH (08:23)
[2021-08-23] MEDS: FLUOXETINE HCL 20 MG CAPSULE PO SCH (08:23)
[2021-08-23] MEDS: FERROUS SULFATE 325 MG TABLET.DR PO SCH (08:23)
[2021-08-23] MEDS: RISPERIDONE 1 MG TABLET PO SCH (08:24)
[2021-08-23] MEDS: SODIUM BICARBONATE 650 MG TAB PO SCH ×2 (08:24→14:00)
[2021-08-23] MEDS: FAMOTIDINE 20MG TAB PO SCH (08:24)
[2021-08-23] MEDS: BALSAM PERU/CASTOR OIL 60 GM TUBE TP SCH (08:24)
[2021-08-23] MEDS: DEXTROSE 10%-WATER 1,000 ML IV SCH (08:57)
[2021-08-23] MEDS ORDERED: 0.9% NACL 500ML IV.SOLN 500 ML IV SCH ×2 (10:00→10:14)
[2021-08-23 11:58] VITALS: BP 65/36
[2021-08-23 16:00] VITALS: BP 39/25
== END 2021-08-23 18:25 | DRG 637 ==
LOC: EDH 20:09 → EDHIP 20:10 → 4BH 07-04 17:22 → 3CH 07-19 06:32 → 4AH 08-18 13:15 → 2CH 08-18 14:30 → 3DH 08-19 10:00
PROVIDERS: ADMIT Internal Medicine; ATTEND Internal Medicine
PROC: 30233N1 Transfusion of Nonautologous Red Blood Cells into Peripheral Vein, Percutaneous Approach (ICD-10-PCS; 2021-07-09)
PROC: 0DB68ZX Excision of Stomach, Via Natural or Artificial Opening Endoscopic, Diagnostic (ICD-10-PCS; principal; 2021-07-10)
PROC: 5A09357 Assistance with Respiratory Ventilation, Less than 24 Consecutive Hours, Continuous Positive Airway Pressure (ICD-10-PCS; 2021-08-18)
PROC: 5A09357 Assistance with Respiratory Ventilation, Less than 24 Consecutive Hours, Continuous Positive Airway Pressure (ICD-10-PCS; 2021-08-23)
DX: E11.00 Type 2 diabetes mellitus with hyperosmolarity without nonketotic hyperglycemic-hyperosmolar coma (NKHHC) (principal); J80 Acute respiratory distress syndrome; J18.9 Pneumonia, unspecified organism; E43 Unspecified severe protein-calorie malnutrition; E87.1 Hypo-osmolality and hyponatremia; N17.9 Acute kidney failure, unspecified; F14.20 Cocaine dependence, uncomplicated; D62 Acute posthemorrhagic anemia; R18.8 Other ascites; J98.11 Atelectasis; I13.0 Hypertensive heart and chronic kidney disease with heart failure and stage 1 through stage 4 chronic kidney disease, or unspecified chronic kidney disease; D68.9 Coagulation defect, unspecified; F32.3 Major depressive disorder, single episode, severe with psychotic features; A04.72 Enterocolitis due to Clostridium difficile, not specified as recurrent; I82.621 Acute embolism and thrombosis of deep veins of right upper extremity; K86.1 Other chronic pancreatitis; L89.152 Pressure ulcer of sacral region, stage 2; E86.0 Dehydration; D72.829 Elevated white blood cell count, unspecified; E11.51 Type 2 diabetes mellitus with diabetic peripheral angiopathy without gangrene; I25.10 Atherosclerotic heart disease of native coronary artery without angina pectoris; I50.9 Heart failure, unspecified; N18.30 Chronic kidney disease, stage 3 unspecified; E11.22 Type 2 diabetes mellitus with diabetic chronic kidney disease; D50.9 Iron deficiency anemia, unspecified; E78.5 Hyperlipidemia, unspecified; E87.6 Hypokalemia; D63.1 Anemia in chronic kidney disease; Z20.822 Contact with and (suspected) exposure to COVID-19; D69.6 Thrombocytopenia, unspecified; D72.819 Decreased white blood cell count, unspecified; E78.00 Pure hypercholesterolemia, unspecified; F60.7 Dependent personality disorder; E88.09 Other disorders of plasma-protein metabolism, not elsewhere classified; G89.29 Other chronic pain; K29.70 Gastritis, unspecified, without bleeding; Z66 Do not resuscitate; K74.60 Unspecified cirrhosis of liver; R19.5 Other fecal abnormalities; E11.65 Type 2 diabetes mellitus with hyperglycemia; Z99.3 Dependence on wheelchair; Z68.22 Body mass index [BMI] 22.0-22.9, adult; Z51.5 Encounter for palliative care; Z56.0 Unemployment, unspecified; Z74.01 Bed confinement status; Z79.4 Long term (current) use of insulin; Z87.891 Personal history of nicotine dependence; Z90.49 Acquired absence of other specified parts of digestive tract; Z89.511 Acquired absence of right leg below knee; Z89.512 Acquired absence of left leg below knee; Z88.8 Allergy status to other drugs, medicaments and biological substances; Z91.14 Patient's other noncompliance with medication regimen; Z91.19 Patient's noncompliance with other medical treatment and regimen; Z82.3 Family history of stroke; Z83.3 Family history of diabetes mellitus; Z82.49 Family history of ischemic heart disease and other diseases of the circulatory system
CPT/HCPCS: 36415; 36430; 36600; 43239; 71045; 71250; 74176; 74181; 76705; 80048; 80053; 80061; 82010; 82040; 82270; 82435; 82550; 82728; 82803; 82947; 82948; 83540; 83550; 83605; 83690; 83735; 83874; 84100; 84132; 84145; 84295; 84484; 85014; 85018; 85025; 85027; 85378; 85610; 85730; 86850; 86900; 86901; 86923; 87040; 87324; 87635; 92610; 93005; 93971; 94660; 97039; A4606; C9113; G0378; J0696; J1170; J1610; J1644; J1756; J1815; J2001; J2060; J2354; J2405; J2543; J2704; J3370; J3475; J3480; J3490; J7030; J7040; J7042; J7050; J7070; J7120; P9016